=== PATIENT | male | born 1930 | race Caucasian/White ===

== ENCOUNTER 2016-07-14 10:31 | Inpatient (IN) | payer MEDICARE, OTHER ==
[~2016-07-14] VITALS: Ht 172.7 cm; Wt 91.1 kg
[2016-07-14] VITALS (8 sets, daily range): BP systolic 96–116; BP diastolic 52–66; PULSE 68–90; RESP 12–21; O2SAT 96–98
[~2016-07-14 10:31] MED LIST: ADV250INH INH; ALBU2.5V4 INHALATION; ALBU8.5H2 INH; ATOR20TA65 PO; DOCU250C2 PO; FLUT16SP NASAL; FRSM80T PO; INSU100I16 SUBQ; INSU100I18 SUBQ; ISOS60TA2 PO; LEVO750T9 PO; METF1000 PO; METO2.5T12 PO; NEPA3DRO BOTH_EYES; NITR0.4T SL; POLY17PO6 PO; POTA10TA38 PO; PRED1DRO BOTH_EYES; VERA240T97 PO; WARF5TAB9 PO; [UNRECOGNIZED DRUG - CODE] PO
--- NOTE | 2016-07-14 10:44 | ED.REPORT ---
HPI-Chest Pain 40 and Over Date of Service Jul 14, 2016 ED Provider: Michael Duncan MD 86 year old male with a history of SC, CABG, CAD, CHF, and DM presents to the ER accompanied by his complaining of four days of cough and shortness of breath. He endorses production of white sputum with cough. Associated symptoms include constant chest discomfort described as congestion, fever (99F), and nasal congestion. Patient denies nausea, and vomiting. recently recovered from a bout of pneumonia. Nursing Notes Stated Complaint: CHEST PAIN Chief Complaint: Chest Pain Nursing Notes Reviewed: Yes Allergies: Coded Allergies: No Known Allergies (Verified , 07/29/15) Scheduled Atorvastatin Calcium (Atorvastatin Calcium) 20 Mg Tablet 20 MG PO HS Calcium Citrate/Vitamin D3 (Citracal-Vit D 200 mg-250 Tab) 1 Each Tablet 1 EACH PO BID Fluticasone Propionate (Fluticasone Propionate Nasal) 16 Gm [place].susp 1 SPRAY NASAL BID Fluticasone/Salmeterol (Advair 250-50 Diskus) 60 Puff/Inh Disk 1 PUFF INH BID Furosemide (Furosemide) 80 Mg Tab 160 MG PO QAM Insulin NPL/Insulin Lispro (HumaLOG 75/25 U100 Insulin Kwikpen) 100 Unit/1 Ml Insuln.pen 24 UNITS SUBQ BID Isosorbide MN ER (Isosorbide MN ER) 60 Mg Tab.er.24h 60 MG PO QAM Levofloxacin (Levaquin) 750 Mg Tablet 750 MG PO Q2DAY Metformin (Glucophage) 1,000 Mg Tablet 1,000 MG PO BID Metolazone (Metolazone) 2.5 Mg Tablet 2.5 MG PO 1-2 times per week Nepafenac (N[place]anac) 3 Ml Drops.susp 1 GTT BOTH_EYES TID Potassium Chloride (Potassium Chloride) 10 Meq Tab.er.prt 20 MEQ PO TIDWM Potassium Chloride (Potassium Chloride) 10 Meq Tab.er.prt 10 MEQ PO HS TAKE WITH FOOD Prednisolone Acetate (Pred Forte) 1 Ml Drops.susp 1 GTT BOTH_EYES TID Verapamil ER (Verapamil ER) 240 Mg Tber 240 MG PO HS Warfarin Sodium (Jantoven) 5 Mg Tablet 2.5 MG PO DAILY don't take coumadin if INR is more than 3 Scheduled PRN Albuterol HFA (Proair HFA) 8.5 Gm Hfa.aer.ad 1 PUFF INH q4-6 hours PRN PRN For Shortness of Breath Albuterol Neb Soln (Albuterol Neb Soln) 2.5 Mg/3 Ml Vial.neb 2.5 MG INHALATION QID PRN PRN For Shortness of Breath Docusate Sodium (Docusate Sodium) 250 Mg Capsule 250 MG PO DAILY PRN PRN For Constipation Insulin Lispro (HumaLOG U100 Insulin Pen) 100 Unit/1 Ml Insuln.pen 0-6 UNITS SUBQ TIDWM PRN PRN sliding scale Nitroglycerin SL (Nitrostat) 0.4 Mg Tab.subl 0.4 MG SL Q5MIN PRN PRN For Chest Pain Polyethylene Glycol 3350 (Miralax) 17 Gm Powd.pack 17 GM PO DAILY PRN PRN For Constipation General Time Seen by MD: 10:40 Chief Complaint Shortness of breath Hx Obtained From: Patient, Spouse Arrived By: Walk-in Sudden in Onset?: No Onset Occurred: 4 days ago Symptom Duration: Since onset Associated with: Reports: Cough, productive, Fever, Denies: Nausea, Vomiting Context Related History: Reports: Congestive heart failure, Diabetes mellitus, Hypertension, Myocardial infarction Similar Sx Previous: No Past Medical History Past Medical History Notes: [employer] Principal: Dr. Norman Past Medical History Prior SC Reports: Asthma, COPD, Cancer, Congestive heart failure, Coronary artery disease , Diabetes mellitus, Hypertension Past Surgical History Pacemaker Cardiac stenting CABG prostatectomy Smoking History Former Smoker Social History Alcohol Use: 1-3 per week Drug Use: Denies drug use Ambulatory Status Independent Review of Systems Constitutional: Reports: Fever Respiratory: Reports: Prod cough, white, Shortness of breath, Denies: Hemoptysis Cardiovascular: Reports: Chest pain GI: Denies: Constipation, Diarrhea, Nausea, Vomiting Musculoskeletal: Denies: Back pain, Extremity pain, Neck pain Skin: Denies Diaphoresis Complete sys rev & neg: except as marked. Ears / Nose / Throat: Reports: Nasal congestion Physical Exam Initial Vital Signs Vital Signs (First) Date Time Temp Pulse Resp B/P Pulse Ox O2 Delivery O2 Flow Rate FiO2 07/14/16 10:32 37.1 68 20 105/66 96 Room Air Initial VS: Reviewed Head / Eyes: Atraumatic, Normocephalic Neck: Supple, Non-tender, Full range of motion Extremities: Vascular intact, Neuro intact, No swelling, No tenderness Skin: Warm, Dry, No cyanosis Neurologic: Alert, Oriented, Nonfocal General/Constitutional: Awake, Alert, Well developed, Well nourished Coarse breath sounds bilaterally. Cardiovascular: Heart rate NL, Regular rhythm, Heart sounds NL, No murmurs, Peripheral circulation NL, Pulses = bilaterally, No gross BP differential Abdomen: Soft, Non-tender, No guarding, No rebound, No distention Interpretation & Diagnostics Lab Results Interpretation Result Diagram: 07/14/16 1100 07/14/16 1100 Test 07/14/16 11:00 07/14/16 13:05 White Blood Count 7.6th/mm3 (3.8-10.1) Red Blood Count 4.68mil/mm3 (4.40-5.80) Hemoglobin 14.5g/dL (13.8-17.2) Hematocrit 44.0% (41.0-50.0) Mean Corpuscular Volume 94.0fL (81-100) Mean Corpuscular Hemoglobin 31.0pg (27.0-35.0) Mean Corpuscular Hemoglobin Concent 33.0% (32.0-37.0) Red Cell Distribution Width 14.3% (12.3-15.4) Platelet Count 153bil/L (150-400) Neutrophils (%) (Auto) 69.3% (40-74) Lymphocytes (%) (Auto) 10.2% (14-46) Monocytes (%) (Auto) 19.2% (4-12) Eosinophils (%) (Auto) 0.7% (0-5) Basophils (%) (Auto) 0.3% (0-3) Prothrombin Time 17.3sec (8.1-12.5) Prothromb Time International Ratio 1.60ratio Sodium Level 135mEq/L (134-144) Potassium Level 4.3mEq/L (3.5-5.2) Chloride Level 94mEq/L (97-108) Carbon Dioxide Level 23mmol/L (18-29) Blood Urea Nitrogen 44mg/dL (8-27) Creatinine 1.36mg/dL (0.76-1.27) Estimat Glomerular Filtration Rate 53mL/min (>59) Glucose Level 166mg/dL (60-99) Calcium Level 9.6mg/dL (8.5-10.1) Magnesium Level 2.4mg/dL (1.6-2.6) Total Bilirubin 0.6mg/dL (0.0-1.2) Aspartate Amino Transf (AST/SGOT) 22U/L (0-50) Alanine Aminotransferase (ALT/SGPT) 18U/L (0-44) Alkaline Phosphatase 88U/L (25-160) Total Protein 7.8g/dL (6.4-8.4) Albumin 4.1g/dL (3.4-5.0) Hold Moreira Top Tube Received (Received) Troponin T < 0.010ug/L (0.0-0.011) ECG Interpretation ECG Interpretation: Atrial fibrillation, rate 72 Q waves in v1-v3 No ST elevations Unchanged from prior Time: 10:52 Interpreted by: ED physician X-Ray Chest Interpretation Chest Xray Interpretation: IMPRESSION: Bibasilar airspace disease (right significantly greater than left) is suspicious for pneumonia. Atelectasis or aspiration may also have this appearance. Dictated by: Tanvir Gallo M.D. on 07/14/2016 at 10:52 Approved by: Tanvir Gallo M.D. on 07/14/2016 at 10:53 View: Portable, 1 view Interpretation / Wet Read by: Interpret - Radiologist Re-Eval/Medical Decision Med Decision/Clinical Course 86-year-old male history of CABG, diabetes, CAD, CHF presenting with shortness breath times several days. Cough productive white sputum. Chest x-ray concerning right lower lobe pneumonia. His oxygen is mid 90s on room air. Denied any chest pain. Troponins mild elevation. History of elevation in the past. Curb 65 score is 2 for age and kidney function. Mild acute kidney injury. Discussed with patient and he would like to be admitted. Admitted for pneumonia. Levaquin given. Aspirin given for troponin elevation will trend. No EKG changes. Source of Hx: Old records Time of Eval: 12:14 Re-Evaluation/Progress Note: Discussed lab and imaging results and need for admission, as well as the risks and benefits of admission vs admiission. Patient would like to be discharged home. Time of Eval: 12:43 Re-Evaluation/Progress Note: called primary care provider, Dr. Cabrera, regarding patient's case. She reports that Dr. Cabrera recommends admission. Patient now agrees to the plan for admission. All other questions addressed. Time of Eval: 13:22 Re-Evaluation/Progress Note: CODE STATUS: FULL CODE Consultation : Referral / Consult Name: Ankush Payan Consulted With: Hospitalist Call Returned at: 13:21 [employer]ix System Administrator: Agrees with eval, Agrees with plan, Accepts admit Counseled Regarding: Diagnosis, Lab results, Need for admission Discharge & Departure Primary Impression: Pneumonia Additional Impressions: Elevated troponin Acute kidney injury Disposition: ADMITTED TO HOSPITAL Discharge Condition All VS Reviewed: Yes Condition: Stable Referrals: Hina Cabrera MD (PCP) Dolores Attestation Portions of this note were transcribed by Camron Mulligan. I, Dr. Duncan, personally performed the history, physical exam and medical decision-making; I reviewed and confirmed the accuracy of the information in the transcribed note. Signed by: Dolores Julian, 07/14/2016 at 13:22 copies to: Hina Cabrera MD, Ben M MD Jul 14, 2016 10:43 CAMRON MULLIGAN Jul 14, 2016 10:56
[2016-07-14 11:20] LABS: BASOPHILS % (AUTO) 0.3 % (0-3); EOSINOPHILS % (AUTO) 0.7 % (0-5); MONOCYTES % (AUTO) 19.2 % (4-12); NEUTROPHILS % (AUTO) 69.3 % (40-74); Platelet Count 153 bil/L (150-400)
[2016-07-14 11:31] LABS: INR 1.6 ratio
[2016-07-14 11:38] LABS: TROPONIN T 0.013 ug/L (0.0-0.011)
[2016-07-14 11:49] LABS: Magnesium 2.4 mg/dL (1.6-2.6)
--- NOTE | 2016-07-14 11:54 | DRSVH ---
PROCEDURE: X-RAY CHEST ONE VIEW, PORTABLE ([id number]) INDICATIONS: CHEST PAIN TECHNIQUE: One view of the chest was acquired. COMPARISON: [facility], CR, XR CHEST 2VW, 08/21/2015, 16:51. [facility], C R, XR CHEST 2VW, 08/08/2015, 11:08. [facility], CR, XR CHEST 2VW, 07/29/2015, 16:30. [facility], CR, XR CHEST 2VW, 04/23/2015, 10:24. FINDINGS: Surgical changes and devices: Postoperative changes are present related to a prior median sternotomy. There is a dual lead cardiac pacer/defibrillator. Lungs and pleura: Developing right basilar airspace disease partially obscure some right diaphragm. There may be minimal left airspace disease, as well. No overt heart failure, large effusion, or pneu mothorax is evident. Mediastinum: Mediastinal contours appear normal. Heart size is normal. Bones and chest wall: No suspicious bony lesions. Overlying soft tissues appear unremarkable. IMPRESSION: Bibasilar airspace disease (right significantly greater than left) is suspicious for pneu monia. Atelectasis or aspiration may also have this appearance. Dictated by: Tanvir Gallo M.D. on 07/14/2016 at 10:52 Approved by: Tanvir Gallo M.D. on 07/14/2016 at 10:53
[2016-07-14] MEDS ORDERED: levoFLOXacin Inj 750 MG in IV Premix 1 EACH IV ONE (12:25)
[2016-07-14] MEDS ORDERED: Alum-Mag Hydrox-Simeth 30 mL Suspension PO PRN ×2 (13:20→15:20)
[2016-07-14] MEDS ORDERED: Ondansetron 2 mg/mL 2 mL Inj IVPUSH PRN ×2 (13:20→15:20)
--- NOTE | 2016-07-14 13:43 | NUR ---
Admit MPC from ED Rm [id number] Pt admitted via wc on RA, A&O, IV abx infusing and at bedside. Pt c/o pain with coughing, denies it otherwise. Pt oriented to room and facility, all questions answered. VSS, on RA. Admit to be complete still. No transitional orders in yet.
[2016-07-14] MEDS ORDERED: 0.9% Sodium Chloride 1,000 ML IV ONE (15:20)
[2016-07-14] MEDS ORDERED: levoFLOXacin Dose Per Pharmacist XX ONE (15:20)
[2016-07-14] MEDS ORDERED: Albuterol 2.5 mg/3 mL Inhalation Solution NEB PRN (15:25)
[2016-07-14] MEDS ORDERED: _Albuterol 2.5 mg/3 mL Neb NEB PRN (15:25)
[2016-07-14] MEDS ORDERED: Insulin LISPRO 300 Unit/3 mL Inj SUBQ PRN (15:25)
[2016-07-14] MEDS ORDERED: NEPAFENAC BOTH_EYES SCH (16:05)
[2016-07-14] MEDS ORDERED: [UNRECOGNIZED DRUG - OTHER] BOTH_EYES SCH (16:05)
[2016-07-14] MEDS: Heparin 5,000 Unit/mL Inj SUBQ SCH ×2 (16:20→21:34)
[2016-07-14] MEDS: Insulin Human REGular 300 Unit/3 mL Inj SUBQ SCH ×2 (17:00→21:34)
[2016-07-14] MEDS ORDERED: WARF5TAB7 PO ×2 (17:28)
[2016-07-14] MEDS ORDERED: SPIR25TA3 PO (17:28)
[2016-07-14] MEDS: Insulin ASPART 70/30 FlexPen 300 Unit/3 mL Inj SUBQ SCH (18:30)
[2016-07-14] MEDS: Polyethylene Glycol (PEG) 17 Gm Powder PO PRN (18:32)
--- NOTE | 2016-07-14 19:51 | PCM.HPMED ---
Subjective Date of Service Jul 14, 2016 Primary Provider: Admitting Physician: Ankush Payan Primary Care Physician: Hina Cabrera MD Attending Physician: Ankush Payan Chief Complaint: cough, shortness of breath History of Present Illness: 86 year old male with a history of CAD, CABG, and DM presents to the ER accompanied by his complaining of four days of cough, subjective fever this morning, and shortness of breath. He endorses production of white sputum with cough. He also reports chest discomfort with cough only and has also been having some nasal congestion. His reports that she recently recovered from a bout of pneumonia. Patient otherwise denies any nausea, vomiting, headache, constant chest pain, abdominal pain, diarrhea, or dysuria. In addition patient dose complain of bilateral sore throat. In the ED he was prescribed Levofloxacin and recommended to followup with his primary care provider but his PCP instructed the patient to get admitted for further treatment. Allergies Coded Allergies: No Known Allergies (Verified , 07/29/15) Home Medications Albuterol HFA 8.5 Gm Hfa.Aer.Ad 1 Puff INH q4-6 hours PRN Albuterol Neb Soln 2.5 Mg/3 Ml Vial.Neb 2.5 Mg INHALATION QID PRN Warfarin Sodium 5 Mg Tablet 2.5 Mg PO ,,,, Warfarin Sodium 5 Mg Tablet 5 Mg PO Wednesday and Atorvastatin Calcium 20 Mg Tablet 20 Mg PO HS Isosorbide MN ER 60 Mg PO QAM Nitroglycerin SL 0.4 Mg SL Q5MIN PRN Spironolactone 25 Mg PO DAILY Verapamil ER 240 Mg PO HS Calcium Citrate/Vitamin D3 1 Each PO BID Furosemide 160 Mg PO QAM Metolazone 2.5 Mg PO 1-2 times per week PRN Potassium Chloride 10 Meq PO QID with meals/HS Fluticasone/Salmeterol (Advair 250-50 Diskus) 1 Puff INH BID Fluticasone Propionate (Fluticasone Propionate Nasal) 1 [place] NASAL BID Docusate Sodium 250 Mg PO DAILY PRN Polyethylene Glycol 17 Gm PO DAILY Insulin NPL/Insulin Lispro 24 Units SUBQ BID Metformin 1,000 Mg PO BID Exam Vital Signs & I/O Vital Sign- Last 8 Hours Date Time Temp Pulse Resp B/P Pulse Ox O2 Delivery O2 Flow Rate FiO2 07/14/16 18:13 36.9 80 20 96/59 96 Room Air 07/14/16 16:36 75 07/14/16 13:51 36.7 90 20 108/63 97 Room Air 07/14/16 13:21 83 18 111/52 98 Room Air 07/14/16 12:14 81 21 116/57 98 Nasal Cannula Lab & Micro Results Laboratory Tests Test 07/14/16 11:00 07/14/16 13:05 White Blood Count 7.6th/mm3 (3.8-10.1) Red Blood Count 4.68mil/mm3 (4.40-5.80) Hemoglobin 14.5g/dL (13.8-17.2) Hematocrit 44.0% (41.0-50.0) Mean Corpuscular Volume 94.0fL (81-100) Mean Corpuscular Hemoglobin 31.0pg (27.0-35.0) Mean Corpuscular Hemoglobin Concent 33.0% (32.0-37.0) Red Cell Distribution Width 14.3% (12.3-15.4) Platelet Count 153bil/L (150-400) Neutrophils (%) (Auto) 69.3% (40-74) Lymphocytes (%) (Auto) 10.2% (14-46) Monocytes (%) (Auto) 19.2% (4-12) Eosinophils (%) (Auto) 0.7% (0-5) Basophils (%) (Auto) 0.3% (0-3) Prothrombin Time 17.3sec (8.1-12.5) Prothromb Time International Ratio 1.60ratio Sodium Level 135mEq/L (134-144) Potassium Level 4.3mEq/L (3.5-5.2) Chloride Level 94mEq/L (97-108) Carbon Dioxide Level 23mmol/L (18-29) Blood Urea Nitrogen 44mg/dL (8-27) Creatinine 1.36mg/dL (0.76-1.27) Estimat Glomerular Filtration Rate 53mL/min (>59) Glucose Level 166mg/dL (60-99) Calcium Level 9.6mg/dL (8.5-10.1) Magnesium Level 2.4mg/dL (1.6-2.6) Total Bilirubin 0.6mg/dL (0.0-1.2) Aspartate Amino Transf (AST/SGOT) 22U/L (0-50) Alanine Aminotransferase (ALT/SGPT) 18U/L (0-44) Alkaline Phosphatase 88U/L (25-160) Troponin T 0.013ug/L (0.0-0.011) < 0.010ug/L (0.0-0.011) Total Protein 7.8g/dL (6.4-8.4) Albumin 4.1g/dL (3.4-5.0) Hold Moreira Top Tube Received (Received) Procalcitonin 0.19ng/mL (0.00-0.08) Microbiology 07/14/16 Blood Culture, Received Pending 07/14/16 Adenovirus DNA (PCR), Received Pending 07/14/16 Coronavirus 229E PCR, Received Pending 07/14/16 Coronavirus HKU1 PCR, Received Pending 07/14/16 Coronavirus NL63 PCR, Received Pending 07/14/16 Coronavirus OC43 PCR, Received Pending 07/14/16 Influenza Type A (PCR), Received Pending 07/14/16 Influenza Type B (PCR), Received Pending 07/14/16 Human Metapneumovirus (PCR) (IAN), Received Pending 07/14/16 Rhinovirus (PCR)(IAN), Received Pending 07/14/16 Parainfluenza Virus Type 1 (PCR), Received Pending 07/14/16 Parainfluenza Virus Type 2 (PCR), Received Pending 07/14/16 Parainfluenza Virus Type 3 (PCR), Received Pending 07/14/16 Parainfluenza Virus Type 4 (NAAT), Received Pending 07/14/16 Respiratory Syncytial Virus (PCR)NV, Received Pending 07/14/16 Chlamydia pneumoniae (PCR), Received Pending 07/14/16 Mycoplasma pneumoniae DNA Detection, Received Pending Result Diagram: 07/14/16 1100 07/14/16 1100 Review of Systems: Constitutional: Negative, except as otherwise mentioned in the history above. Ophthalmologic: Negative, except as otherwise mentioned in the history above. Cardiovascular: Negative, except as otherwise mentioned in the history above. Respiratory: Negative, except as otherwise mentioned in the history above. Gastrointestinal: Negative, except as otherwise mentioned in the history above. Genitourinary: Negative, except as otherwise mentioned in the history above. Musculoskeletal: Negative, except as otherwise mentioned in the history above. Neurological: Negative, except as otherwise mentioned in the history above. Psychiatric: Negative, except as otherwise mentioned in the history above. Hematologic/Lymphatic: Negative, except as otherwise mentioned in the history above. Allergic/Immunologic: Negative, except as otherwise mentioned in the history above. PMH Coronary artery disease Heart failure, systolic dysfunction Diabetes mellitus type II Atrial fibrillation COPD Asthma Prostate cancer post resection Surgical History Cardiac stenting CABG Prostatectomy Pacemaker Family History denies any family history of cancers Social History Hx Alcohol Use: Yes (1 beer/ week) Hx Substance Use: No Hx Tobacco Use: No Smoking Status: Former Smoker (quit in 1967) Exam Vital Signs Vital Sign - Last Date Time Temp Pulse Resp B/P Pulse Ox O2 Delivery O2 Flow Rate FiO2 07/14/16 18:13 36.9 80 20 96/59 96 Room Air General: Alert, Oriented X3, Cooperative, No Acute Distress Head: Normal Eyes: PERRLA, EOMI, Scleral Anicteric Nose: Mucous Membr Moist/[place] Mouth: Mucous Membr Moist/[place] Neck: Supple Chest & Lungs: Chest Wall Normal, Coarse breath sounds (bilateral) Cardiovascular: Regular Rate/Rhythm Pulses: NL carotid, radial, femoral, DP, PT Abdomen: Non-tender, Non-distended, Normoactive bowel tones, Soft Extremities: No cyanosis/clubbing/edma bilat, Other Skin: Other (chronic venous insufficiency chagnes to LE bilat) Neurological: Grossly Neurologically Intact, Cranial Nerves 2-12 Intact, Normal Speech Lymphatic: Other Lymph Nodes (no signficant lymphadenopathy) Additional Information: Psych: Pleasant and appropriate Lab and Diagnostics Result Diagram: 07/14/16 1100 07/14/16 1100 X-Rays, CTs and MRIs Date of Service: 07/14/16 1041 PROCEDURE: X-RAY CHEST ONE VIEW, PORTABLE ([id number]) IMPRESSION: Bibasilar airspace disease (right significantly greater than left) is suspicious for pneumonia. Atelectasis or aspiration may also have this appearance. Dictated by: Tanvir Gallo M.D. on 07/14/2016 at 10:52 Approved by: Tanvir Gallo M.D. on 07/14/2016 at 10:53 12-lead ECG NSR at about 70 bpm Assessment & Plan 86 year old male with a history of CAD, CABG, and DM presents to the ER accompanied by his complaining of four days of cough, subjective fever this morning, and shortness of breath. He endorses production of white sputum with cough. He also reports chest discomfort with cough only and has also been having some nasal congestion. His reports that she recently recovered from a bout of pneumonia. Patient otherwise denies any nausea, vomiting, headache, constant chest pain, abdominal pain, diarrhea, or dysuria. In addition patient dose complain of bilateral sore throat. # Acute community acquired pneumonia. present on admission. - check rapid strep test and strep Ag given report of sore throat - check respiratory PCR given recent history or RSV for similar symptoms - check procalcitonin - sputum culture - blood culture - continue Levofloxacin started in ED (pharmacy to adjust dose) # Acute kidney injury, present on admission. - gentle IV fluid (patient clinically appears dehydrated) - followup repeat labs in am - check UA # Possible acute COPD exacerbation. Present on admission. - I don't appreciate any significant wheezing on exam today and so will not start any steroids - continue with home inhaler and Nebs - continue with supportive care # History of atrial fibrillation. Currently in sinus rhythm - followup on Tele - continue with Warfarin (pharmacy to manage dose) - followup daily INR (currently sub-therapeutic) - heparin SC tid until INR therapeutic # Coronary artery disease. presume stable - mild bump in Trop on admission but normalized on repeat lab - continue with home meds # History of systolic dysfunction and heart failure. currently stable - gentle IV fluid overnight - resume home diuretics in the morning if renal function back to normal # Diabetes mellitus type II - continue with home dose Insulin - hold oral diabetic meds - cover with ISS - check HgA1C # History of prostate cancer post resection in remission after prostatectomy Expected length of hospital stay is greater than 2 midnights and likely 2-3 days GI Prophylaxis: Not indicated VTE Prophylaxis: Sub-Q Heparin (Unfractionated) VTE Mechanical Devices: Venous Foot Pump Resuscitation Status: CPR: Attempt Resuscitation (discussed and verified with the patietn) Time spent 65 min Ankush Payan Jul 14, 2016 19:51
[2016-07-14] MEDS ORDERED: PrednisoLONE 1% 1 mL Ophthalmic Suspension BOTH_EYES SCH (20:30)
[2016-07-14] MEDS: Albuterol 2.5 mg/3 mL Inhalation Solution NEB PRN (20:52)
[2016-07-14] MEDS: Verapamil SR 240 mg ER12 Tablet PO SCH (21:34)
[2016-07-14] MEDS: Fluticasone 0.05% 15 Spray/2 Gm 16 Gm Nasal Spray NASAL SCH (21:36)
[2016-07-14] MEDS: Fluticasone-Salmererol 250-50 Inhaler INHALATION SCH (21:36)
--- NOTE | 2016-07-14 22:21 | PCM.CONPHA ---
Subjective Date of Service: Jul 14, 2016 Requesting Provider: Ankush Payan cough, shortness of breath Reason for Pharmacy Consult: Anticoagulation Management Objective Vital Signs Date Time Temp Pulse Resp B/P Pulse Ox O2 Delivery O2 Flow Rate FiO2 07/14/16 21:37 36.7 81 12 98/60 98 Room Air 07/14/16 20:52 86 18 96 Room Air 07/14/16 18:13 36.9 80 20 96/59 96 Room Air 07/14/16 16:36 75 07/14/16 13:51 36.7 90 20 108/63 97 Room Air 07/14/16 13:21 83 18 111/52 98 Room Air 07/14/16 12:14 81 21 116/57 98 Nasal Cannula 07/14/16 10:32 37.1 68 20 105/66 96 Room Air Weight (Kilograms): 91.100 Height (Feet): 5 Height (Inches): 8.00 Test 07/14/16 11:00 07/14/16 13:05 White Blood Count 7.6th/mm3 (3.8-10.1) Red Blood Count 4.68mil/mm3 (4.40-5.80) Hemoglobin 14.5g/dL (13.8-17.2) Hematocrit 44.0% (41.0-50.0) Mean Corpuscular Volume 94.0fL (81-100) Mean Corpuscular Hemoglobin 31.0pg (27.0-35.0) Mean Corpuscular Hemoglobin Concent 33.0% (32.0-37.0) Red Cell Distribution Width 14.3% (12.3-15.4) Platelet Count 153bil/L (150-400) Neutrophils (%) (Auto) 69.3% (40-74) Lymphocytes (%) (Auto) 10.2% (14-46) Monocytes (%) (Auto) 19.2% (4-12) Eosinophils (%) (Auto) 0.7% (0-5) Basophils (%) (Auto) 0.3% (0-3) Prothrombin Time 17.3sec (8.1-12.5) Prothromb Time International Ratio 1.60ratio Sodium Level 135mEq/L (134-144) Potassium Level 4.3mEq/L (3.5-5.2) Chloride Level 94mEq/L (97-108) Carbon Dioxide Level 23mmol/L (18-29) Blood Urea Nitrogen 44mg/dL (8-27) Creatinine 1.36mg/dL (0.76-1.27) Estimat Glomerular Filtration Rate 53mL/min (>59) Glucose Level 166mg/dL (60-99) Calcium Level 9.6mg/dL (8.5-10.1) Magnesium Level 2.4mg/dL (1.6-2.6) Total Bilirubin 0.6mg/dL (0.0-1.2) Aspartate Amino Transf (AST/SGOT) 22U/L (0-50) Alanine Aminotransferase (ALT/SGPT) 18U/L (0-44) Alkaline Phosphatase 88U/L (25-160) Total Protein 7.8g/dL (6.4-8.4) Albumin 4.1g/dL (3.4-5.0) Hold Moreira Top Tube Received (Received) Troponin T < 0.010ug/L (0.0-0.011) Procalcitonin 0.19ng/mL (0.00-0.08) Assessment/Plan Assessment/Plan Warfarin per Rx Indication: A-Fib INR goal : 2-3; Today is 1.6 Will give home dose of 2.5mg today Daily INR ordered; Heaprin SQ to be D/C'ed when INR therapeutic Carmelo Harper PharmD Jul 14, 2016 22:21
--- NOTE | 2016-07-14 22:36 | NUR ---
[employer] called to advise that Resp Panel returned + for parainfluenza 3. Pt already on droplet precautions.
[2016-07-15] VITALS (10 sets, daily range): BP systolic 99–127; BP diastolic 60–74; PULSE 57–72; RESP 18–22; O2SAT 95–99
[2016-07-15 06:29] LABS: Magnesium 2.4 mg/dL (1.6-2.6)
[2016-07-15 06:31] LABS: BASOPHILS % (AUTO) 0.4 % (0-3); MONOCYTES % (AUTO) 20.4 % (4-12); Mean Corpuscular Hemoglobin 30.9 pg (27.0-35.0); Mean Corpuscular Volume 93.6 fL (81-100); NEUTROPHILS % (AUTO) 58.2 % (40-74); Platelet Count 150 bil/L (150-400)
[2016-07-15] MEDS ORDERED: 0.9% Sodium Chloride 1,000 ML IV ONE (07:40)
[2016-07-15 08:10] LABS: INR 1.89 ratio
[2016-07-15] MEDS: Fluticasone-Salmererol 250-50 Inhaler INHALATION SCH ×2 (08:44→20:37)
[2016-07-15] MEDS: Isosorbide Mononitrate 60 mg ER24 Tablet PO SCH (08:44)
[2016-07-15] MEDS: Fluticasone 0.05% 15 Spray/2 Gm 16 Gm Nasal Spray NASAL SCH ×2 (08:45→20:37)
[2016-07-15] MEDS: Insulin ASPART 70/30 FlexPen 300 Unit/3 mL Inj SUBQ SCH ×2 (08:46→17:00)
[2016-07-15] MEDS: Heparin 5,000 Unit/mL Inj SUBQ SCH ×3 (08:46→23:10)
[2016-07-15] MEDS: Insulin Human REGular 300 Unit/3 mL Inj SUBQ SCH ×4 (08:47→20:37)
--- NOTE | 2016-07-15 11:26 | PCM.PHAPRO ---
Progress cough, shortness of breath WARFARIN DOSING PER PHARMACY [facility] DFF Date -Jul 15-Jun INR 1.6 1.89 INR change 0.29 Warf Dose 2.5 2.5 A/P -Subtherapeutic INR but uptrending. -Will continue with warfarin 2.5 mg this evening which aligns with home regimen. -Will stop heparin ppx once INR is therapeutic. -Pharmacy will continue to monitor Rodger Lee, Rodger Urbina Jul 15, 2016 11:26
[2016-07-15] MEDS: Albuterol 2.5 mg/3 mL Inhalation Solution NEB PRN (12:29)
--- NOTE | 2016-07-15 14:23 | NUR ---
Social Work Note - Initial Assessment: D/A: See Initial Assessment. The Pt is an 86 y/o male that was admitted for elevated trop, pneumonia. Readmission Risk Score 3. The Pt's PCP is MD Hina Cabrera and his primary insurance is Medicare with a Nex[employer] supplement, no LTC or VA benefits reported. EMR reviewed. The Pt lives independently in [place] with his . The Pt has [employer] at home, paperwork requested. The Pt continues to drive and has nebulizer at O2 at home for use at night. The Pt has no personal history of HH/SNF services but the family is familiar with [facility] due to the 's stay previously. The family has housekeeping services every other week, no other community resources reported. The Pt denies any other needs at this time, SW to follow if needs arise. P: The Pt is not medically stable for discharge at this time, Pt likely to discharge home via family POV when medically ready. The Pt denies any other needs at this time, SW to follow if needs arise. MORGAN Espinosa [employer] Addendum: 07/15/16 at 1429 by LASHAY DE LA ROSA SS Amended: Links added. Addendum: 04/19/17 at 1659 by COLLEEN PHIPPS GLENN has reviewed note. Colleen López,FELT HANGER
--- NOTE | 2016-07-15 15:07 | PCM.PNMED ---
Subjective Date of Service Jul 15, 2016 Subjective continued cough and generalized malaise. denies any other new issues/complaints Exam Vital Signs Vital Sign - Last Date Time Temp Pulse Resp B/P Pulse Ox O2 Delivery O2 Flow Rate FiO2 07/15/16 14:15 36.3 60 22 99/60 98 Room Air Intake and Output 07/14/16 07/14/16 07/15/16 Cumulative From/Thru 15:00 23:00 07:00 07/14/16 10:32 - 07/15/16 06:03 Intake Total 160 ml 610 ml 250 ml 1020 ml Output Total 400 ml 1300 ml 1700 ml Balance 160 ml 210 ml -1050 ml -680 ml Intake Oral 450 ml 250 ml 700 ml IV Total 160 ml 160 ml 320 ml Output Urine Total 400 ml 1300 ml 1700 ml # Bowel Movements 0 0 0 Exam General: Alert, Cooperative, No Acute Distress Head: Normal Eyes: PERRLA, EOMI, Scleral Anicteric Nose: Mucous Membr Moist/[place] Mouth: Mucous Membr Moist/[place] Neck: Supple Chest & Lungs: Chest Wall Normal, Coarse breath sounds with mild expiratory wheeze (bilateral) Cardiovascular: Regular Rate/Rhythm Abdomen: Non-tender, Non-distended, Normoactive bowel tones, Soft Extremities: No cyanosis/clubbing/edema bilat, Other Skin: Other (chronic venous insufficiency changes to LE bilat) Neurological: Grossly Neurologically Intact, Normal Speech Psych: Pleasant and appropriate IVs and Medications Medications Reviewed: Medications were reviewed in detail Lab and Diagnostics Result Diagram: 07/15/16 0515 07/15/16 0515 X-Rays, CTs and MRIs Date of Service: 07/14/16 1041 PROCEDURE: X-RAY CHEST ONE VIEW, PORTABLE ([id number]) IMPRESSION: Bibasilar airspace disease (right significantly greater than left) is suspicious for pneumonia. Atelectasis or aspiration may also have this appearance. Dictated by: Tanvir Gallo M.D. on 07/14/2016 at 10:52 Approved by: Tanvir Gallo M.D. on 07/14/2016 at 10:53 12-lead ECG NSR at about 70 bpm Assessment & Plan 86 year old male with a history of CAD, CABG, and DM presents to the ER accompanied by his complaining of four days of cough, subjective fever, and shortness of breath. # Acute community acquired pneumonia. present on admission. - respiratory PCR positive for Parainfluenza 3 virus - stop Levofloxacin # one out of two blood cultures also positive for GPC. present on admission - ? if contamination - followup final blood culture result - change antibiotics to IV Vanco (dose per pharmacy) until final culture result available # Acute kidney injury, present on admission. slowly improving with IV fluid - continue gentle IV fluid - followup repeat labs in am # Possible acute COPD exacerbation. Present on admission. - has only mild wheezing on exam today and so will not start any steroids - continue with home inhaler and Nebs - continue with supportive care # History of atrial fibrillation. Currently in sinus rhythm - followup on Tele - continue with Warfarin (pharmacy to manage dose) - followup daily INR (currently sub-therapeutic) - heparin SC tid until INR therapeutic # Coronary artery disease. presume stable - mild bump in Trop on admission but normalized on repeat lab - continue with home meds # History of systolic dysfunction and heart failure. currently stable - gentle IV fluid overnight - resume home diuretics in the morning if renal function back to normal # Diabetes mellitus type II - continue with home dose Insulin - hold oral diabetic meds - cover with ISS - HgA1C 6.4 # History of prostate cancer post resection in remission after prostatectomy Dispo: 1-2 days pending final blood culture result and improved respiratory status GI Prophylaxis: Not indicated VTE Prophylaxis: Sub-Q Heparin (Unfractionated) VTE Mechanical Devices: Venous Foot Pump Resuscitation Status: CPR: Attempt Resuscitation (discussed and verified with the patietn) Ankush Payan Jul 15, 2016 15:07
--- NOTE | 2016-07-15 18:11 | NUR ---
Positive blood culture Patient had blood culture pending. Micro called nurse and reported blood culture 04/01 came back positive for +cocci resembling strep. was notified.
[2016-07-15] MEDS: Verapamil SR 240 mg ER12 Tablet PO SCH (20:36)
[2016-07-16 02:42] VITALS: PULSE 56
--- NOTE | 2016-07-16 03:27 | NUR ---
Uneventful night Patient slept intermittently, woke a few times because of coughing. Saturations high 90's on room air. Declined nebulizer treatment. Patient reported that the coughing is from nasal discharge that drains down his throat while laying down. Denied pain except for arthritic pain in hands, declined medication and lotion. Remained alert and oriented, used call light for needs. Intentional rounding in place.
[2016-07-16 05:00] VITALS: BP 109/67; PULSE 61; RESP 18; O2SAT 97
[2016-07-16 05:46] VITALS: PULSE 61
[2016-07-16] MEDS: Polyethylene Glycol (PEG) 17 Gm Powder PO PRN (06:45)
[2016-07-16 06:58] LABS: INR 1.74 ratio
[2016-07-16 08:00] VITALS: PULSE 67
[2016-07-16] MEDS ORDERED: levoFLOXacin Inj 750 MG in IV Premix 1 EACH IV SCH (08:30)
[2016-07-16] MEDS: Insulin Human REGular 300 Unit/3 mL Inj SUBQ SCH ×4 (08:36→22:00)
[2016-07-16] MEDS: Heparin 5,000 Unit/mL Inj SUBQ SCH ×2 (09:17→16:33)
[2016-07-16 09:18] VITALS: BP 121/66; PULSE 61; RESP 18; O2SAT 99
[2016-07-16] MEDS: Fluticasone-Salmererol 250-50 Inhaler INHALATION SCH ×2 (09:18→20:29)
[2016-07-16] MEDS: Fluticasone 0.05% 15 Spray/2 Gm 16 Gm Nasal Spray NASAL SCH ×2 (09:18→20:29)
[2016-07-16] MEDS: Isosorbide Mononitrate 60 mg ER24 Tablet PO SCH (09:18)
[2016-07-16] MEDS: Insulin ASPART 70/30 FlexPen 300 Unit/3 mL Inj SUBQ SCH ×2 (09:18→17:03)
[2016-07-16] MEDS ORDERED: 0.9% Sodium Chloride 250 ML ONE (09:22)
[2016-07-16 11:56] LABS: BASOPHILS % (AUTO) 0.4 % (0-3); MONOCYTES % (AUTO) 15.4 % (4-12); Mean Corpuscular Volume 94.7 fL (81-100); NEUTROPHILS % (AUTO) 55.6 % (40-74); Platelet Count 145 bil/L (150-400)
--- NOTE | 2016-07-16 12:16 | PCM.PHAPRO ---
Progress cough, shortness of breath WARFARIN DOSING PER PHARMACY (day) 1 2 3 RPh DFF DFF Date Jul 15-Jul 16-Jun INR 1.6 1.89 1.74 INR change 0.29 -0.15 Warf Dose 2.5 2.5 5 A/P -Subtherapeutic INR with slight decrease in level this AM. -Will increase dose based on home regimen and dose warfarin 5mg this evening. -Pharmacy will continue to follow. Rodger Lee,PharmD Rodger Lee Jul 16, 2016 12:16
--- NOTE | 2016-07-16 15:46 | PCM.PNMED ---
Subjective Date of Service Jul 16, 2016 Subjective Patient is doing better. He is on room air, ambulating bed to bathroom without much shortness of breath. He is afebrile, eating and drinking well. Plan to discharge tomorrow. Exam Vital Signs Vital Sign - Last Date Time Temp Pulse Resp B/P Pulse Ox O2 Delivery O2 Flow Rate FiO2 07/16/16 09:18 36.3 61 18 121/66 99 Room Air Intake and Output 07/15/16 07/15/16 07/16/16 Cumulative From/Thru 14:59 22:59 06:59 07/14/16 10:32 - 07/16/16 06:04 Intake Total 2892 ml 50 ml 3962 ml Output Total 1050 ml 850 ml 3600 ml Balance 1842 ml -800 ml 362 ml Intake Oral 1272 ml 50 ml 2022 ml IV Total 1620 ml 1940 ml Output Urine Total 1050 ml 850 ml 3600 ml # Bowel Movements 0 0 Exam General: Alert, Cooperative, No Acute Distress Nose: Mucous Membr Moist/[place] Mouth: Mucous Membr Moist/[place] Chest & Lungs: Chest Wall Normal, Coarse breath sounds with mild expiratory wheeze right more than left Cardiovascular: Regular Rate/Rhythm Abdomen: Non-tender, Non-distended, Normoactive bowel tones, Soft Extremities: No cyanosis/clubbing/edema bilat, Other Lab and Diagnostics Result Diagram: 07/16/16 0630 07/16/16 0630 X-Rays, CTs and MRIs Date of Service: 07/14/16 1041 PROCEDURE: X-RAY CHEST ONE VIEW, PORTABLE ([id number]) IMPRESSION: Bibasilar airspace disease (right significantly greater than left) is suspicious for pneumonia. Atelectasis or aspiration may also have this appearance. Dictated by: Tanvir Gallo M.D. on 07/14/2016 at 10:52 Approved by: Tanvir Gallo M.D. on 07/14/2016 at 10:53 12-lead ECG NSR at about 70 bpm Assessment & Plan 86 year old male with a history of CAD, CABG, and DM presents to the ER accompanied by his complaining of four days of cough, subjective fever, and shortness of breath. # Acute community acquired pneumonia. present on admission. - respiratory PCR positive for Parainfluenza 3 virus - discontinue Levofloxacin - procalcitonin in the morning # one out of two blood cultures also positive for GPC. present on admission - ? if contamination - followup final blood culture result # Acute kidney injury, present on admission. slowly improving with IV fluid - continue gentle IV fluid - followup repeat labs in am -much improved today, continue to monitor # Possible acute COPD exacerbation. Present on admission. - has only mild wheezing on exam today and so will not start any steroids - continue with home inhaler and Nebs - continue with supportive care # History of atrial fibrillation. Currently in sinus rhythm - followup on Tele - continue with Warfarin (pharmacy to manage dose) - followup daily INR (currently sub-therapeutic) - heparin SC tid until INR therapeutic # Coronary artery disease. presume stable - mild bump in Trop on admission but normalized on repeat lab - continue with home meds # History of systolic dysfunction and heart failure. currently stable - gentle IV fluid overnight - resume home diuretics in the morning if renal function back to normal # Diabetes mellitus type II - continue with home dose Insulin - hold oral diabetic meds - cover with ISS - HgA1C 6.4 # History of prostate cancer post resection in remission after prostatectomy Dispo: Home tomorrow if clinically stable Pain Evaluation: Adequate Pain Control GI Prophylaxis: Not indicated VTE Prophylaxis: Sub-Q Heparin (Unfractionated) VTE Mechanical Devices: Venous Foot Pump Resuscitation Status: CPR: Attempt Resuscitation (discussed and verified with the patietn) Attending Statement The patient was seen and examined together with Dr. Morel on 07/16/2016 and I agree with the history, exam and plan as outlined in the note above. . Aviva Morel DO Jul 16, 2016 15:46 Salbador Freedman MD Jul 17, 2016 06:44
[2016-07-16] MEDS: Verapamil SR 240 mg ER12 Tablet PO SCH (20:29)
[2016-07-16 23:47] VITALS: BP 111/67; PULSE 64; RESP 18; O2SAT 97
[2016-07-17] MEDS: Heparin 5,000 Unit/mL Inj SUBQ SCH ×2 (00:21→07:53)
[2016-07-17 06:23] VITALS: BP 114/63; PULSE 66; RESP 18; O2SAT 97
[2016-07-17 07:08] LABS: Mean Corpuscular Hemoglobin 31.2 pg (27.0-35.0); Mean Corpuscular Volume 94.8 fL (81-100)
[2016-07-17 07:19] LABS: INR 1.79 ratio
[2016-07-17] MEDS: Insulin ASPART 70/30 FlexPen 300 Unit/3 mL Inj SUBQ SCH (07:54)
[2016-07-17] MEDS: Fluticasone 0.05% 15 Spray/2 Gm 16 Gm Nasal Spray NASAL SCH (07:54)
[2016-07-17] MEDS: Isosorbide Mononitrate 60 mg ER24 Tablet PO SCH (07:54)
[2016-07-17] MEDS: Fluticasone-Salmererol 250-50 Inhaler INHALATION SCH (07:54)
[2016-07-17] MEDS: Polyethylene Glycol (PEG) 17 Gm Powder PO PRN (08:02)
[2016-07-17] MEDS: Insulin Human REGular 300 Unit/3 mL Inj SUBQ SCH ×2 (08:03→11:51)
[2016-07-17 09:08] VITALS: PULSE 62; RESP 16; O2SAT 97
--- NOTE | 2016-07-17 10:00 | NUR ---
Oxygenation Pt ambulated with this RN around unit (400ft) with pulseox. Pts Sp02 decreased to 93% skilled nursing through walk momentarily but maintained 96-99% for the entirety of his walk. At end of the walk pt displayed mild NICHOLAS as evidence by RR 26 and audible wheezes that occurred throughout entire course of ambulation, but Sp02 was 99%.
--- NOTE | 2016-07-17 11:03 | PCM.PHAPRO ---
Progress Date of Service: Jul 17, 2016 cough, shortness of breath WARFARIN MANAGEMENT A/ WARFARIN FOR AFIB INR= 1.79 INR CONTINUING TO TREND UP WILL CONTINUE 5MG TODAY STARTED LINEZOLID 600MG PO BID 07/16 WHICH CAN INCREASE INR. LINEZOLID NEED BEING EVALUATED BY MD Date -Jul 15-Jul 16-Jul 17-Jun INR 1.6 1.89 1.74 1.79 INR change 0.29 -0.15 0.05 Warf Dose 2.5 2.5 5 5 P/ WILL GIVE WARFARIN 5MG PO X1 TONIGHT AND CHECK INR WITH AM LABS Jorge Deal [facility] Jul 17, 2016 11:03
[2016-07-17 12:30] VITALS: BP 123/67; PULSE 67; RESP 16; O2SAT 98
--- NOTE | 2016-07-17 13:48 | PCM.DIMED ---
Discharge Instructions Date of Service Jul 17, 2016 Dates of Hospitalization Jul 14, 2016 at 13:30 Medication Instructions zpak Diet No restrictions Activity No restrictions Call your provider Fever or Chills, Shortness of breath Patient Instructions follow up with PCP if feeling worse on Z-yadiel follow up with coumadin clinic wednesday Valerie Dillard MD Jul 17, 2016 13:48
--- NOTE | 2016-07-17 13:49 | NUR ---
Social Work: Discharge Data: Pt is on day 3 of hospitalization. EMR reviewed. D/C orders are in. PT recommending home no PT needs. No d/c planning needs at this time. [employer] will continue to follow if needs arise. Assessment: Pt who is independent at baseline. Plan: Pt will d/c home via POV today. No d/c planning needs at this time. W[employer] F[employer] ENGINEER will continue to follow if needs arise. MORGAN Meneses
[2016-07-17] MEDS ORDERED: ZIT250 PO (13:56)
--- NOTE | 2016-07-17 14:03 | PCM.DC.MED ---
Discharge Summary Date of Service Jul 17, 2016 Dates of Hospitalization Date of Hospital Admission Jul 14, 2016 at 13:30 Date of Discharge: Jul 17, 2016 Providers: Admitting Physician: Ankush Payan Primary Care Physician: Hina Cabrera MD Attending Physician: Ankush Payan Diagnosis at Time of Discharge Diagnosis at Time of Discharge bilateral pneumonia, neg culture, elevated procalcitonin parainfluenza 3 virus COPD exacerbation subtherapeutic INR, home w/ azithro and usual home coumadin dosing for PAfib Procedures XRay, CTs & MRIs Date of Service: 07/14/16 1041 PROCEDURE: X-RAY CHEST ONE VIEW, PORTABLE ([id number]) IMPRESSION: Bibasilar airspace disease (right significantly greater than left) is suspicious for pneumonia. Atelectasis or aspiration may also have this appearance. Dictated by: Tanvir Gallo M.D. on 07/14/2016 at 10:52 Approved by: Tanvir Gallo M.D. on 07/14/2016 at 10:53 ECG 12 Lead NSR at about 70 bpm Brief History 86 year old male with a history of CAD, CABG, and DM presents to the ER accompanied by his complaining of four days of cough, subjective fever this morning, and shortness of breath. He endorses production of white sputum with cough. He also reports chest discomfort with cough only and has also been having some nasal congestion. His reports that she recently recovered from a bout of pneumonia. Patient otherwise denies any nausea, vomiting, headache, constant chest pain, abdominal pain, diarrhea, or dysuria. In addition patient dose complain of bilateral sore throat. In the ED he was prescribed Levofloxacin and recommended to followup with his primary care provider but his PCP instructed the patient to get admitted for further treatment. Hospital Course 86 year old male with a history of CAD, CABG, and DM presents to the ER accompanied by his ( 2 week hx of pna) complaining of four days of cough, subjective fever, and shortness of breath. # Acute community acquired pneumonia. present on admission. - respiratory PCR positive for Parainfluenza 3 virus - discontinue Levofloxacin/ s/p linezolid - procalcitonin positive x 2 --home w/ azithromycin - aware of increasing INR, which is still subtherapeutic --ambulated hallways w/o desaturation, confident taking him home # one out of two blood cultures also positive for GPC. present on admission - contamination # Acute kidney injury, present on admission. resolved - s/p IV fluid # acute COPD exacerbation. Present on admission. - diffuse rhonchi/wheeze baseline per patient - continue with home inhaler and Nebs # History of atrial fibrillation. Currently in sinus rhythm - followup on Tele - continue with Warfarin (pharmacy to manage dose) - followup daily INR (currently sub-therapeutic) - f/u w/ coumadin clinic wednesday - heparin SC tid until INR therapeutic # Coronary artery disease. presume stable - mild bump in Trop on admission but normalized on repeat lab - continue with home meds # History of systolic dysfunction and heart failure. currently stable - gentle IV fluid - resumed home diuretics as renal function back to normal # Diabetes mellitus type II - continue with home dose Insulin - hold oral diabetic meds - cover with ISS - HgA1C 6.4 # History of prostate cancer post resection in remission after prostatectomy Exam Vital Signs (Last) Date Time Temp Pulse Resp B/P Pulse Ox O2 Delivery O2 Flow Rate FiO2 07/17/16 12:30 36.5 67 16 123/67 98 Room Air Exam on RA NAD A and ox3 pleasant hearing aides wheeze throughout baseline per patient soft + BS mild edema Test 07/14/16 11:00 07/14/16 13:05 07/15/16 05:15 07/16/16 06:30 Hemoglobin A1c 6.4% (4.8-5.6) Hold Moreira Top Tube Received (Received) Troponin T < 0.010ug/L (0.0-0.011) Magnesium Level 2.4mg/dL (1.6-2.6) Neutrophils (%) (Auto) 55.6% (40-74) Lymphocytes (%) (Auto) 22.2% (14-46) Monocytes (%) (Auto) 15.4% (4-12) Eosinophils (%) (Auto) 6.0% (0-5) Basophils (%) (Auto) 0.4% (0-3) Test 07/17/16 06:45 White Blood Count 8.8th/mm3 (3.8-10.1) Red Blood Count 4.23mil/mm3 (4.40-5.80) Hemoglobin 13.2g/dL (13.8-17.2) Hematocrit 40.1% (41.0-50.0) Mean Corpuscular Volume 94.8fL (81-100) Mean Corpuscular Hemoglobin 31.2pg (27.0-35.0) Mean Corpuscular Hemoglobin Concent 32.9% (32.0-37.0) Red Cell Distribution Width 14.1% (12.3-15.4) Platelet Count 157bil/L (150-400) Prothrombin Time 19.4sec (8.1-12.5) Prothromb Time International Ratio 1.79ratio Sodium Level 137mEq/L (134-144) Potassium Level 4.8mEq/L (3.5-5.2) Chloride Level 101mEq/L (97-108) Carbon Dioxide Level 20mmol/L (18-29) Blood Urea Nitrogen 28mg/dL (8-27) Creatinine 0.99mg/dL (0.76-1.27) Estimat Glomerular Filtration Rate 76mL/min (>59) Glucose Level 174mg/dL (60-99) Calcium Level 8.9mg/dL (8.5-10.1) Total Bilirubin 0.6mg/dL (0.0-1.2) Aspartate Amino Transf (AST/SGOT) 20U/L (0-50) Alanine Aminotransferase (ALT/SGPT) 18U/L (0-44) Alkaline Phosphatase 92U/L (25-160) Total Protein 6.5g/dL (6.4-8.4) Albumin 3.7g/dL (3.4-5.0) Procalcitonin 0.12ng/mL (0.00-0.08) Discharge Medications Discharge Medications Atorvastatin Calcium (Atorvastatin Calcium) 20 Mg Tablet 20 MG PO HS (Reported) Azithromycin (Zithromax) 250 Mg Tablet 250 MG PO DAILY Prescribed by: VALERIE DILLARD MD Calcium Citrate/Vitamin D3 (Citracal-Vit D 200 mg-250 Tab) 1 Each Tablet 1 EACH PO BID (Reported) Fluticasone Propionate (Fluticasone Propionate Nasal) 16 Gm [place].susp 1 SPRAY NASAL BID (Reported) Fluticasone/Salmeterol (Advair 250-50 Diskus) 60 Puff/Inh Disk 1 PUFF INH BID ( Reported) Furosemide (Furosemide) 80 Mg Tab 160 MG PO QAM (Reported) Insulin NPL/Insulin Lispro (HumaLOG 75/25 U100 Insulin Kwikpen) 100 Unit/1 Ml Insuln.pen 24 UNITS SUBQ BID (Reported) Isosorbide MN ER (Isosorbide MN ER) 60 Mg Tab.er.24h 60 MG PO QAM (Reported) Metformin (Glucophage) 1,000 Mg Tablet 1,000 MG PO BID (Reported) Polyethylene Glycol 3350 (Miralax) 17 Gm Powd.pack 17 GM PO DAILY (Reported) Potassium Chloride (Potassium Chloride) 10 Meq Tab.er.prt 10 MEQ PO QID with meals/HS (Reported) Spironolactone (Spironolactone) 25 Mg Tablet 25 MG PO DAILY (Reported) Verapamil ER (Verapamil ER) 240 Mg Tber 240 MG PO HS (Reported) Warfarin Sodium (Warfarin Sodium) 5 Mg Tablet 2.5 MG PO ,,,, (Reported) Warfarin Sodium (Warfarin Sodium) 5 Mg Tablet 5 MG PO Wednesday and ( Reported) As needed Albuterol HFA (Proair HFA) 8.5 Gm Hfa.aer.ad 1 PUFF INH q4-6 hours PRN PRN For Shortness of Breath (Reported) Albuterol Neb Soln (Albuterol Neb Soln) 2.5 Mg/3 Ml Vial.neb 2.5 MG INHALATION QID PRN PRN For Shortness of Breath (Reported) Docusate Sodium (Docusate Sodium) 250 Mg Capsule 250 MG PO DAILY PRN PRN For Constipation (Reported) Metolazone (Metolazone) 2.5 Mg Tablet 2.5 MG PO 1-2 times per week PRN PRN prn ( Reported) Nitroglycerin SL (Nitrostat) 0.4 Mg Tab.subl 0.4 MG SL Q5MIN PRN PRN For Chest Pain (Reported) Additional med instructions zpak Followup Plan Discharge Diet: No restrictions Discharge Activity: No restrictions Patient Instructions follow up with PCP if feeling worse on Z-yadiel follow up with coumadin clinic wednesday Time spent >30min Valerie Dillard MD Jul 17, 2016 14:03
--- NOTE | 2016-07-17 14:58 | NUR ---
Discharge Went over discharge instructions with patient and his both verbally acknowledged understanding. Removed patent intact IV. This RN brought pt via wheelchair to awaiting transportation. No s/s of distress at time discharge
== END 2016-07-17 14:35 | disposition home or self-care (01) | DRG 194 ==
LOC: SED 10:31 → MPC 13:30
PROVIDERS: ADMIT Internal Medicine; ATTEND Internal Medicine
DX: J10.00 Influenza due to other identified influenza virus with unspecified type of pneumonia (principal); N17.9 Acute kidney failure, unspecified; J44.1 Chronic obstructive pulmonary disease with (acute) exacerbation; I50.22 Chronic systolic (congestive) heart failure; Z95.1 Presence of aortocoronary bypass graft; I25.10 Atherosclerotic heart disease of native coronary artery without angina pectoris; E11.9 Type 2 diabetes mellitus without complications; J45.909 Unspecified asthma, uncomplicated; Z79.4 Long term (current) use of insulin; Z79.51 Long term (current) use of inhaled steroids; Z95.0 Presence of cardiac pacemaker; I25.2 Old myocardial infarction; Z87.891 Personal history of nicotine dependence; Z85.46 Personal history of malignant neoplasm of prostate

== ENCOUNTER 2016-10-04 16:50 | Inpatient (IN) | payer MEDICARE, OTHER ==
[~2016-10-04] VITALS: Ht 177.8 cm; Wt 87.8 kg
[~2016-10-04 16:50] MED LIST changes: -INSU100I18 SUBQ; -LEVO750T9 PO; -NEPA3DRO BOTH_EYES; -PRED1DRO BOTH_EYES; +SPIR25TA3 PO; +WARF5TAB7 PO; -WARF5TAB9 PO; +ZIT250 PO
[2016-10-04 16:53] VITALS: BP 107/63; PULSE 80; RESP 16; O2SAT 98
--- NOTE | 2016-10-04 17:08 | ED.REPORT ---
HPI-Dyspnea / Wheezing Date of Service Oct 04, 2016 ED Provider: Liliam Mabry MD 86 y/o male with a hx of GA, CABG, CAD, CHF, DM and hospitalization for pneumonia 4 months ago presents to the ER complaining of shortness of breath for a week. Associated sx include substernal chest pain, fatigue and cough with green sputum that seems to be improving. The pt does report cough with brownish- red sputum this morning. He denies fever and change in his chronic lower extremity edema. The pt states his current sx are not similar to his last GA. They are more like the sx he had when he was diagnosed with pneumonia.The pt has been using his inhaler but it is not relieving his symptoms. His states the increased use of Albuterol is causing shaking. Nursing Notes Stated Complaint: DIFFICULTY BREATHING Chief Complaint: Respiratory Distress Nursing Notes Reviewed: Yes Allergies: Coded Allergies: No Known Allergies (Verified , 07/29/15) Scheduled Albuterol Neb Soln (Albuterol Neb Soln) 2.5 Mg/3 Ml Vial.neb 2.5 MG INHALATION QID Atorvastatin Calcium (Atorvastatin Calcium) 20 Mg Tablet 20 MG PO HS Calcium Citrate/Vitamin D3 (Citracal-Vit D 200 mg-250 Tab) 1 Each Tablet 1 EACH PO BIDWM Fluticasone Propionate (Fluticasone Propionate Nasal) 16 Gm [place].susp 1 SPRAY NASAL BID Fluticasone/Salmeterol (Advair 250-50 Diskus) 60 Puff/Inh Disk 1 PUFF INH BID Furosemide (Furosemide) 80 Mg Tab 160 MG PO QAM Insulin Aspart (NovoLOG U100 Insulin Vial) 100 U/Ml U 2-6 UNIT SUBQ TIDWM PER SLIDING SCALE FOR BG > 200, PT AVERAGES ~ 4 UNITS. Insulin NPL/Insulin Lispro (HumaLOG 75/25 U100 Insulin Kwikpen) 100 Unit/1 Ml Insuln.pen 28 UNITS SUBQ BIDWM Isosorbide MN ER (Isosorbide MN ER) 60 Mg Tab.er.24h 60 MG PO QAM Metformin (Glucophage) 1,000 Mg Tablet 500 MG PO BIDWM Polyethylene Glycol 3350 (Miralax) 17 Gm Powd.pack 17 GM PO DAILY Potassium Chloride (Potassium Chloride) 10 Meq Tab.er.prt 10 MEQ PO QIDWM Spironolactone (Spironolactone) 25 Mg Tablet 25 MG PO QAM Verapamil ER (Verapamil ER) 240 Mg Tber 240 MG PO HS Warfarin Sodium (Warfarin Sodium) 5 Mg Tablet 2.5 MG PO [place],,W,,Sa Warfarin Sodium (Warfarin Sodium) 5 Mg Tablet 5 MG PO Wednesday and Scheduled PRN Albuterol HFA (Proair HFA) 8.5 Gm Hfa.aer.ad 1 PUFF INH q4-6 hours PRN PRN For Shortness of Breath Docusate Sodium (Docusate Sodium) 250 Mg Capsule 250 MG PO DAILY PRN PRN For Constipation Metolazone (Metolazone) 2.5 Mg Tablet 2.5 MG PO Q5D PRN PRN EDEMA Nitroglycerin SL (Nitrostat) 0.4 Mg Tab.subl 0.4 MG SL Q5MIN PRN PRN For Chest Pain General Time Seen by MD: 17:06 Chief Complaint Shortness of breath Hx Obtained From: Patient, Spouse Arrived By: Walk-in Sudden in Onset?: No Onset Occurred: 1 week ago Symptom Duration: Since onset Location: : Substernal Quality: Painful Radiation: : Does not radiate Severity: Current: Moderate Severity: Maximum: Moderate Recent Healthcare: Recent doctor visit Similar Sx Previous: Yes Past Medical History Past Medical History Notes: Claims Adjuster Crop: Dr. Norman Past Medical History Prior GA Reports: Asthma, COPD, Cancer, Congestive heart failure, Coronary artery disease , Diabetes mellitus, Hypertension Past Surgical History Pacemaker Cardiac stenting CABG prostatectomy Smoking History Former Smoker Social History Alcohol Use: 1-3 per week Drug Use: Denies drug use Ambulatory Status Independent Review of Systems Constitutional: Reports: Fatigue, Denies: Fever Respiratory: Reports: Prod cough, brown, Prod cough, green, Shortness of breath Cardiovascular: Reports: Chest pain (substernal), Denies: Edema Complete sys rev & neg: except as marked. Neurologic: Reports: Shaking Physical Exam Initial Vital Signs Vital Signs (First) Date Time Temp Pulse Resp B/P Pulse Ox O2 Delivery O2 Flow Rate FiO2 10/04/16 16:53 36.5 80 16 107/63 98 Room Air Initial VS: Reviewed, Vital signs normal Head / Eyes: Atraumatic, Normocephalic Extremities: Vascular intact, Neuro intact, No swelling, No tenderness Skin: Warm, Dry, No cyanosis Neurologic: Alert, Oriented, Nonfocal General/Constitutional: Awake, Alert, Cooperative Neck: Atraumatic, Supple, Full range of motion Respiratory / Chest: Atraumatic, Breath sounds = bilat, No rales, No rhonchi Wheezing / Retractions: Positive: Wheezing expiratory (to bilateral bases) Cardiovascular: Heart rate NL, Heart sounds NL, No murmurs Heart Rate / Rhythm: Positive: Irregular rhythm Back: Atraumatic, Full range of motion Interpretation & Diagnostics Lab Results Interpretation Result Diagram: 10/04/16 1715 10/04/16 1715 Test 10/04/16 17:15 White Blood Count 15.0th/mm3 (3.8-10.1) Red Blood Count 4.67mil/mm3 (4.40-5.80) Hemoglobin 14.2g/dL (13.8-17.2) Hematocrit 43.0% (41.0-50.0) Mean Corpuscular Volume 92.1fL (81-100) Mean Corpuscular Hemoglobin 30.4pg (27.0-35.0) Mean Corpuscular Hemoglobin Concent 33.0% (32.0-37.0) Red Cell Distribution Width 14.3% (12.3-15.4) Platelet Count 276bil/L (150-400) Neutrophils (%) (Auto) 80.9% (40-74) Lymphocytes (%) (Auto) 6.9% (14-46) Monocytes (%) (Auto) 10.9% (4-12) Eosinophils (%) (Auto) 0.9% (0-5) Basophils (%) (Auto) 0.1% (0-3) Prothrombin Time 18.8sec (8.1-12.5) Prothromb Time International Ratio 1.74ratio Sodium Level 130mEq/L (134-144) Potassium Level 4.5mEq/L (3.5-5.2) Chloride Level 87mEq/L (97-108) Carbon Dioxide Level 23mmol/L (18-29) Blood Urea Nitrogen 49mg/dL (8-27) Creatinine 1.61mg/dL (0.76-1.27) Estimat Glomerular Filtration Rate 43mL/min (>59) Glucose Level 181mg/dL (60-99) Calcium Level 10.1mg/dL (8.5-10.1) Magnesium Level 2.1mg/dL (1.6-2.6) Total Bilirubin 1.0mg/dL (0.0-1.2) Aspartate Amino Transf (AST/SGOT) 17U/L (0-50) Alanine Aminotransferase (ALT/SGPT) 14U/L (0-44) Alkaline Phosphatase 107U/L (25-160) Troponin T 0.014ug/L (0.0-0.011) Pro-B-Type Natriuretic Peptide 1458pg/mL (0-486) Total Protein 8.5g/dL (6.4-8.4) Albumin 3.7g/dL (3.4-5.0) Procalcitonin 0.24ng/mL (0.00-0.08) Hold Moreira Top Tube Received (Received) ECG Interpretation ECG Interpretation: A-fib. Rate 77. 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 Prolonged QT interval. Time: 17:09 Interpreted by: ED physician X-Ray Chest Interpretation Chest Xray Interpretation: IMPRESSION: 1. No acute cardiopulmonary disease. Dictated by: Jose Montelongo M.D. on 10/04/2016 at 17:39 Approved by: Jose Montelongo M.D. on 10/04/2016 at 17:40 View: Portable, 1 view Interpretation / Wet Read by: Interpret - Radiologist CT Chest Interpretation IMPRESSION: 1. Small region of consolidation in the right posterior costophrenic angle with patchy bibasilar opacities consistent with an infectious or inflammatory process. The findings are suggestive of aspiration and similar in distribution to the findings on the prior CT. 2. Small hiatal hernia. Dictated by: Jose Montelongo M.D. on 10/04/2016 at 18:25 Approved by: Jose Montelongo M.D. on 10/04/2016 at 18:31 Study type: Chest CT no contrast Interpretation / Wet Read by: Interpret - Radiologist Re-Eval/Medical Decision Med Decision/Clinical Course The patient presents with increasing respiratory difficulty and chest pain. He says his chest pain does not like his ischemic pain. He is found to have pneumonia versus another inflammatory process. Given his description of sputum and leukocytosis is likely pneumonia. Patient's troponin is indeterminate which could be related to strain. The patient's multiple comorbidities was admitted to the hospital. He had some hypotension which was asymptomatic and resolved with a fluid bolus. Consultation : Referral / Consult Name: ValentinesamariaJenniferisa Santos DO Consulted With: Hospitalist Call Returned at: 19:14 Cheese Pancake Roller: Will see patient, Agrees with eval, Agrees with plan, Accepts admit Discharge & Departure Impression: Primary Impression: Pneumonia Pneumonia type: due to unspecified organism Laterality: bilateral Lung location: unspecified part of lung Qualified Code: J18.9 - Pneumonia, unspecified organism Disposition: ADMITTED TO HOSPITAL Discharge Condition All VS Reviewed: Yes Referrals: Hina Cabrera MD (PCP) Scribe Attestation Portions of this note were transcribed by Lisa Morales. I, , personally performed the history, physical exam and medical decision- making;I reviewed and confirmed the accuracy of the information in the transcribed note. Signed by Dolores Escalante. 10/04/16 19:59 copies to: Hina Cabrera MD, Jena M MD Oct 04, 2016 17:08 Lisa Morales Oct 04, 2016 17:42
[2016-10-04] MEDS ORDERED: predniSONE 20 mg Tablet PO ONE (17:40)
[2016-10-04] MEDS ORDERED: Albuterol-Ipratropium 3 mL Inhalation Solution NEB ONE (17:40)
--- NOTE | 2016-10-04 17:41 | DRSVH ---
PROCEDURE: X-RAY CHEST ONE VIEW, PORTABLE ([id number]) INDICATIONS: CHEST PAIN TECHNIQUE: One view of the chest was acquired. COMPARISON: [facility], CR, XR CHEST 2VW, 07/29/2016, 14:45. FINDINGS: Surgical changes and devices: Left chest wall dual-lead pacemaker appears stable in position. Postsu rgical changes are redemonstrated in the mediastinum. Lungs and pleura: No pleural effusions or pneumothorax. Lungs are clear. Mediastinum: Mediastinal contours appear normal. Heart size is normal. Bones and chest wall: No suspicious bony lesions. Overlying soft tissues appear unremarkable. IMPRESSION: 1. No acute cardiopulmonary disease. Dictated by: Jose Montelongo M.D. on 10/04/2016 at 17:39 Approved by: Jose Montelongo M.D. on 10/04/2016 at 17:40
[2016-10-04 17:43] LABS: BASOPHILS % (AUTO) 0.1 % (0-3); EOSINOPHILS % (AUTO) 0.9 % (0-5); MONOCYTES % (AUTO) 10.9 % (4-12); Mean Corpuscular Hemoglobin 30.4 pg (27.0-35.0); Mean Corpuscular Volume 92.1 fL (81-100); NEUTROPHILS % (AUTO) 80.9 % (40-74); Platelet Count 276 bil/L (150-400)
[2016-10-04 18:15] LABS: TROPONIN T 0.014 ug/L (0.0-0.011)
[2016-10-04 18:16] LABS: Magnesium 2.1 mg/dL (1.6-2.6)
--- NOTE | 2016-10-04 18:33 | DRSVH ---
PROCEDURE: CT CHEST WITHOUT CONTRAST ([id number]) INDICATIONS: cough and dyspnea TECHNIQUE: Noncontrast 5 mm thick sections acquired from the pulmonary apices to the posterior costophrenic angl es. 7 mm thick coronal and sagittal MIP reformats were then acquired. For radiation dose reduction, the following was used: automated exposure control, adjustment of mA and/or kV according to patient size. COMPARISON: [facility], CT, CHEST W/O CONTRAST, 06/08/2014, 14:53. [facility] l, CR, XR CHEST 1VW (PORTABLE), 10/04/2016, 16:54. FINDINGS: Image quality: There is motion artifact limiting evaluation. Lungs and pleura: There is a small region of consolidation in the right posterior costophrenic angle. A few patchy indistinct and clustered nodular opacities are also demonstrated in the lower lobes, i nferior left lingula, inferior right middle lobe. The findings are compatible with an inflammatory o r infectious process and suggestive of aspiration. No pleural effusions or pneumothorax. Central an d peripheral airways are patent and normal in caliber. Mediastinum: Heart size is normal. No pericardial effusion. There are postsurgical changes consist ent with prior CABG. There is a left chest wall pacemaker with leads extending into the right atrium and right ventricle. No mediastinal adenopathy by size criteria. Thoracic aorta and central pulmona ry arteries are normal in size. Esophagus is normal in caliber. There is a small hiatal hernia. Bones and chest wall: No suspicious bony lesions. No vertebral body compression fractures. No axil kiel or supraclavicular adenopathy by size criteria. Abdomen: Visualized upper abdomen again demonstrates an exophytic cyst extending superiorly from the right kidney which is not visualized. IMPRESSION: 1. Small region of consolidation in the right posterior costophrenic angle with patchy bibasilar opa cities consistent with an infectious or inflammatory process. The findings are suggestive of aspirat ion and similar in distribution to the findings on the prior CT. 2. Small hiatal hernia. Dictated by: Jose Montelongo M.D. on 10/04/2016 at 18:25 Approved by: Jose Montelongo M.D. on 10/04/2016 at 18:31
[2016-10-04 18:34] LABS: INR 1.74 ratio
[2016-10-04] MEDS ORDERED: Clindamycin Inj 600 MG in IV Premix 1 EACH IV ONE (18:50)
[2016-10-04] MEDS ORDERED: Azithromycin Inj 500 MG in Dextrose 5% w/Vial Mate 250 ML IV ONE (18:50)
[2016-10-04] MEDS ORDERED: cefTRIAXone Inj 2,000 MG in Dextrose 5% Minibag Plus 50 ML IV ONE (18:50)
[2016-10-04 19:20] VITALS: BP 95/50; PULSE 60; RESP 21; O2SAT 94
[2016-10-04] MEDS ORDERED: 0.9% Sodium Chloride 250 ML IV ONE (19:35)
[2016-10-04] MEDS ORDERED: Albuterol 2.5 mg/3 mL Inhalation Solution NEB PRN (20:10)
[2016-10-04] MEDS ORDERED: Polyethylene Glycol (PEG) 17 Gm Powder PO PRN (20:10)
[2016-10-04] MEDS ORDERED: Alum-Mag Hydrox-Simeth 30 mL Suspension PO PRN (20:10)
[2016-10-04] MEDS ORDERED: Albuterol 2.5 mg/3 mL Inhalation Solution NEB SCH (20:30)
[2016-10-04 20:38] VITALS: BP 107/84; PULSE 60; RESP 19; O2SAT 95
[2016-10-04] MEDS ORDERED: INSU100C8 SUBQ (20:44)
[2016-10-04 20:57] VITALS: BP 109/60; PULSE 60; RESP 20; O2SAT 93
[2016-10-04 21:11] VITALS: PULSE 59
[2016-10-04 21:30] VITALS: PULSE 62; RESP 18
[2016-10-04] MEDS: Albuterol-Ipratropium 3 mL Inhalation Solution NEB SCH (21:30)
--- NOTE | 2016-10-04 22:06 | PCM.HPMED ---
Subjective Date of Service Oct 04, 2016 Primary Provider: Admitting Physician: Primary Care Physician: Hina Cabrera MD Attending Physician: Admit Status: From the Emergency Department, Full Admit, Remote Telemetry Chief Complaint: Shortness of breath History of Present Illness: Eric Medeiros is a 86-year-old man with past medical history significant for coronary artery disease status post CABG and stenting, CHF, atrial fibrillation , and insulin-dependent diabetes who presents with increased shortness of breath. Patient was recently admitted for pneumonia in June. He states that since his discharge he has continued to have some shortness of breath and cough. Over the last 5 days his cough has worsened and become productive of white sputum. He also notes increased shortness of breath limiting his activity. He does not use oxygen at home. He has been using his nebulizer more frequently which mildly improved symptoms. He denies any increased swelling in his lower extremities and notes that he carefully watches his weight and takes his diuretics accordingly per instructions from PCP and shredder tender, Dr. Thompson. He states his weight has been stable at 190 pounds. Patient notes that he does frequently choke while he is eating or drinking. This has never been worked up with a swallow study or EGD. He denies any hematochezia, weight loss, or voice changes. Patient denies fever, chills, night sweats, weight loss, nausea, vomiting, dysuria, or diarrhea. In the ED patient mentioned that he was experiencing some chest pain. Further discussion revealed that this pain was pleuritic in nature worsening when he coughed and with direct palpation to the sternum and epigastric area. A troponin level was drawn and was intermediate. Of note he does have a significant cardiac history. Including coronary artery disease status post single-vessel coronary bypass graft surgery in 1993 that developed high-grade stenosis subsequently requiring stenting in 2008. Most recent echo on 07/30/15 was completed while patient was in atrial fibrillation and showed an ejection fraction of 45-50% with mild global hypokinesis of the left ventricle but no significant change from prior study in 2014. On presentation to the ED patient's vitals were temperature 36.5, pulse 80, respiratory rate 16 saturating 98% on room air, blood pressure 107/63. Initial labs revealed a leukocytosis of 15.0 with a neutrophil predominance, BUN 49, creatinine 1.61 (baseline creatinine appears to be around 1.5), troponin 0.014. In the ED the patient was given ceftriaxone and azithromycin along with a single dose of prednisone 40 mg. Review of Systems: Comprehensive review of systems was conducted with the patient and found to be negative except as noted above in HPI. Allergies Coded Allergies: No Known Allergies (Verified , 07/29/15) Home Medications Albuterol HFA 8.5 Gm Hfa.Aer.Ad 1 Puff INH q4-6 hours PRN Albuterol Neb Soln 2.5 Mg/3 Ml Vial.Neb 2.5 Mg INHALATION QID PRN Warfarin Sodium 5 Mg Tablet 2.5 Mg PO ,,,,Sa Warfarin Sodium 5 Mg Tablet 5 Mg PO Wednesday and Atorvastatin Calcium 20 Mg Tablet 20 Mg PO HS Isosorbide MN ER 60 Mg PO QAM Nitroglycerin SL 0.4 Mg SL Q5MIN PRN Spironolactone 25 Mg PO DAILY Verapamil ER 240 Mg PO HS Calcium Citrate/Vitamin D3 1 Each PO BID Furosemide 160 Mg PO QAM Metolazone 2.5 Mg PO 1-2 times per week PRN Potassium Chloride 10 Meq PO QID with meals/HS Fluticasone/Salmeterol (Advair 250-50 Diskus) 1 Puff INH BID Fluticasone Propionate (Fluticasone Propionate Nasal) 1 [place]man NASAL BID Docusate Sodium 250 Mg PO DAILY PRN Polyethylene Glycol 17 Gm PO DAILY Insulin NPL/Insulin Lispro 24 Units SUBQ BID Metformin 500 Mg PO BID PMH Coronary artery disease Heart failure, systolic dysfunction Diabetes mellitus type II Atrial fibrillation COPD Asthma Prostate cancer post resection Surgical History Cardiac stenting CABG Prostatectomy Pacemaker Family History Father - , coronary artery disease Mother - , diabetes mellitus Sister - , [place] age 66 Social History Hx Alcohol Use: Yes (1 beer/ week) Hx Substance Use: No Hx Tobacco Use: No Smoking Status: Former Smoker (quit in 1964) Years of Smokin Living Arrangement: with Family Exam Vital Signs Vital Sign - Last Date Time Temp Pulse Resp B/P Pulse Ox O2 Delivery O2 Flow Rate FiO2 10/04/16 19:20 37.2 60 21 95/50 94 Room Air Exam General: No acute distress, well-developed, well-nourished, appropriately interactive HEENT: Normocephalic, atraumatic. Hearing aids in place. Upper and lower dentures. Mucous membranes dry. Pupils equal, round, and reactive to light and accommodation. Anicteric sclerae, moist conjunctivae, and no lid lag. Neck: Supple with full range of motion. No jugular venous distension. No bruits. No lymphadenopathy or thyromegaly. Chest: Pain to palpation over the lower sternum, well-healed surgical scar from prior CABG. Cardiovascular: Irregularly irregular with no murmurs, rubs, or gallops appreciated. Pulmonary: Coarseness of the bilateral lung bases right greater than left. No wheezes. Normal respiratory effort with no use of accessory muscles. Abdomen: Bowel tones present. Soft, nontender, nondistended. No hepatosplenomegaly or masses appreciated. Extremities: No lower extremity edema, clubbing, or cyanosis. Skin: Warm to the touch. Mild tenting of skin. Scattered ecchymotic lesions on extremities. Neurological: Cranial nerves grossly intact. Normal muscle strength, tone, and bulk. No known gait impairment. Psychiatric: Normal mood and affect. Alert and oriented to person, place, and time. Lab and Diagnostics Result Diagram: 10/04/16171410/04/161714 X-Rays, CTs and MRIs CT CHEST WITHOUT CONTRAST IMPRESSION: 1. Small region of consolidation in the right posterior costophrenic angle with patchy bibasilar opacities consistent with an infectious or inflammatory process. The findings are suggestive of aspiration and similar in distribution to the findings on the prior CT. 2. Small hiatal hernia. Dictated by: Jose Montelongo M.D. on 10/04/2016 at 18:25 Approved by: Jose Montelongo M.D. on 10/04/2016 at 18:31 X-RAY CHEST ONE VIEW, PORTABLE IMPRESSION: 1. No acute cardiopulmonary disease. Dictated by: Jose Montelongo M.D. on 10/04/2016 at 17:39 Approved by: Jose Montelongo M.D. on 10/04/2016 at 17:40 12-lead ECG EKG on 10/04/16 at 1709: Atrial fibrillation with rate of 77, QT 468, old anterior and inferior infarct Assessment & Plan Eric Medeiros is a 86-year-old man with past medical history significant for coronary artery disease status post CABG and stenting, CHF, atrial fibrillation , and insulin-dependent diabetes who presents with increased shortness of breath. Admitted for possible community acquired versus aspiration pneumonia. 1. Possible community-acquired versus aspiration pneumonia, present on admission, active. Patient presented with worsening productive cough and shortness of breath. Risk factors for aspiration include hiatal hernia, reflux, and recent difficulties with choking over the last 6-12 months. - Chest CT showed right lower lobe infiltrate consistent with aspiration pattern. - Initial labs revealed leukocytosis of 15.0 with a neutrophil predominance in calcitonin 0.24. - Blood and sputum cultures ordered and pending. - Strep pneumoniae and Legionella antigens pending. - Azithromycin and ceftriaxone given in the ED. Due to concern for possible aspiration patient switched to Unasyn. - Patient given an initial dose of prednisone 40 mg in the ED. No further steroid treatment as this appears to be infectious in nature. - Repeat CBC and pro-calcitonin in the morning. - Duonebs every 4 hours while awake. - Albuterol every 4 hours when necessary. 2. Acute on chronic kidney injury, present on admission, active. Baseline creatinine appears to be around 1.4-1.5. Currently 1.6 likely due to decreased oral intake over the last few days. - Gentle IV fluid hydration as patient has CHF. - We will avoid nephrotoxic medications. Unasyn was reviewed with pharmacist it did not require renal dosing as patient's creatinine clearance is greater than 30. - Repeat urine creatinine in the morning. 3. COPD, present on admission, chronic. - Continue home inhalers including Advair and albuterol. - Supplemental oxygen as needed to maintain oxygen saturations between 88-92%. - Treatment as in #1. 4. Coronary artery disease status post CABG and stenting in 2008, present on admission, chronic. In the ED patient complained of chest pain and troponin was 0.014. Patient's description of chest pain was pleuritic and reproducible by palpation. - Trending troponins 3. - Monitor on remote telemetry. - No treatment considered necessary at this time unless symptomatology changes or troponins rise. 5. Atrial fibrillation, present on admission, chronic. - EKG showed A. fib that was rate controlled at 77. - Continue home regimen of verapamil 240 mg at bedtime. - Remote telemetry overnight. 6. Congestive heart failure with reduced ejection fraction, present on admission, chronic. Most recent echo on 07/30/15 showed an EF of 45-50%. - Due to labile blood pressure since presentation to ED furosemide dose was decreased from 60 mg to 80 mg. - Patient takes metolazone as needed according to daily weights. - Spironolactone 25 mg daily. - Verapamil 240 mg at bedtime. 7. Diabetes mellitus insulin using, present admission, chronic. - Home regimen of metformin held. - Humalog 28 units twice a day. - NovoLog 2-6 units 3 times a day with meals. - Hemoglobin A1c pending. PRN Medications - Acetaminophen as needed for mild pain/fever/headache - Bowel regimen as needed - Antiemetic as needed Patient is admitted under inpatient status with expected length of stay greater than 2 midnights due to severity of presenting symptoms, risk of adverse event, and complexity of treatment plan. Pain Evaluation: Adequate Pain Control VTE Prophylaxis: Theraputic Anticoag with Warfarin, SCDs Resuscitation Status: DNR/DNI:Do Not Resuscitate/Intubate Attending Statement The patient was seen and examined together with house staff on and I agree with the history, exam and plan as outlined in the note above. BRANDIE NORTON DO Oct 04, 2016 19:31 Jennifer Samano DO Oct 05, 2016 05:30
[2016-10-04] MEDS: Verapamil SR 240 mg ER12 Tablet PO SCH (22:14)
[2016-10-04] MEDS: Fluticasone-Salmererol 250-50 Inhaler INHALATION SCH (23:07)
[2016-10-05] VITALS (12 sets, daily range): BP systolic 104–114; BP diastolic 46–70; PULSE 59–87; RESP 18–20; O2SAT 96–99
[2016-10-05] MEDS: Ampicillin-Sulbactam Inj 1,500 MG in 0.9% Sodium Chloride 50 ML IV SCH ×4 (02:13→21:14)
[2016-10-05] MEDS ORDERED: Insulin LISPRO 300 Unit/3 mL Inj SUBQ ONE (02:25)
[2016-10-05] MEDS ORDERED: Glucose 40% Oral Gel 15 Gm Tube PO PRN (03:50)
[2016-10-05] MEDS: Insulin LISPRO 300 Unit/3 mL Inj SUBQ SCH ×4 (04:04→22:00)
[2016-10-05 04:45] LABS: APPEARANCE,URINE CLEAR (CLEAR,HAZY); COLOR,URINE DARK YELLOW (YELLOW); OCCULT BLOOD,URINE NEGATIVE (NEGATIVE); PH,URINE 5.5 (5.0-8.0); UROBILINOGEN,URINE NORMAL (NORMAL)
--- NOTE | 2016-10-05 05:38 | NUR ---
NOC Admit Pt arrived on the floor alert and oriented and has been pleasant and cooperative with care. Denies chest pain. Reports of SOB and is unable to lie flat in bed. Breathing Tx provided by RT every 4 hours. Advair inhaler administered as ordered. IV ABx administered as scheduled. Insulin administered as per sliding scale. Addendum: 10/05/16 at 0602 by KENYON DAVIS RN Sputum and urine sample, and MRSA swab sent to lab.
[2016-10-05 06:29] LABS: BASOPHILS % (AUTO) 0.1 % (0-3); EOSINOPHILS % (AUTO) 0.1 % (0-5); MONOCYTES % (AUTO) 7.5 % (4-12); Mean Corpuscular Hemoglobin 31.2 pg (27.0-35.0); Mean Corpuscular Volume 90.8 fL (81-100); NEUTROPHILS % (AUTO) 86.2 % (40-74); Platelet Count 237 bil/L (150-400)
[2016-10-05 06:46] LABS: INR 2.37 ratio
[2016-10-05] MEDS: Albuterol-Ipratropium 3 mL Inhalation Solution NEB SCH ×4 (07:44→20:43)
[2016-10-05] MEDS ORDERED: Insulin LISPRO 300 Unit/3 mL Inj SUBQ SCH (08:00)
--- NOTE | 2016-10-05 09:05 | DRSVH ---
PROCEDURE: X-RAY CHEST ONE VIEW, PORTABLE ([id number]) INDICATIONS: SOB TECHNIQUE: One view of the chest was acquired. COMPARISON: [facility], CR, XR CHEST 1VW (PORTABLE), 10/04/2016, 16:54. FINDINGS: Surgical changes and devices: Sternal wires and pacemaker are noted. Lungs and pleura: No pleural effusions or pneumothorax. Lungs are clear. Mediastinum: Mediastinal contours appear normal. Heart size is normal. Bones and chest wall: No suspicious bony lesions. Overlying soft tissues appear unremarkable. IMPRESSION: No acute pulmonary process. Dictated by: Mecca Plata M.D. on 10/05/2016 at 9:03 Approved by: Mecca Plata M.D. on 10/05/2016 at 9:03
[2016-10-05] MEDS: Isosorbide Mononitrate 60 mg ER24 Tablet PO SCH (09:12)
[2016-10-05] MEDS: Insulin ASPART 70/30 FlexPen 300 Unit/3 mL Inj SUBQ SCH ×2 (09:14→17:05)
[2016-10-05] MEDS: Fluticasone-Salmererol 250-50 Inhaler INHALATION SCH ×2 (09:14→21:14)
[2016-10-05] MEDS: Polyethylene Glycol (PEG) 17 Gm Powder PO SCH (09:16)
--- NOTE | 2016-10-05 10:52 | NUR ---
Evaluation completed. Recommend barium esophagram. Please go to "Notes" then click on "Assessments and Notes" (bottom left corner of screen). Then select appropriate discipline tab on top of screen.
[2016-10-05] MEDS ORDERED: 0.9% Sodium Chloride 1,000 ML IV ONE (11:45)
--- NOTE | 2016-10-05 12:48 | NUR ---
IV IV occluded at this time, IV restart attempted x 1. Unsuccessful. Pt reports is a very difficult IV start. IV therapy contacted to re-start IV. Call light in reach. Will continue to monitor.
--- NOTE | 2016-10-05 15:03 | NUR ---
Social Work-initial assessment/multidisciplinary rounds: Data:See initial assessment. Pt is a 86 y/o male who was admitted on 10/04/16 for pneumonia per H&P. Pt's insurance is [employer] and PCP is Hina Cabrera MD. EMR reviewed. Pt's readmission score is 5-high risk. SW met with pt and family at bedside, SW role explained. Pt is alert and oriented x3. Pt resides at home with his in [place] where he remains independent with ADLS. Pt drives and uses either a fww or cane at baseline. Pt has home O2 through [facility]. Pt has no HH or SNF history. Pt has no roasterman care insurance or [place] benefits. SW discussed DPOA/ advanced directive, confirms this has been completed, SW encouraged a copy to be brought in. SW provided pt and with discharge planning checklist and encouraged them to call with any questions. SW provided phone number and plan on white board in room. Pt's will provide transport home. SW will continue to follow. Assessment:Pt who is independent at baseline. Plan:Pt to discharge home when medically stable via POV. SW to follow for needs. SW will continue to follow. MORGAN Colin Addendum: 10/05/16 at 1506 by JOSE FRANCISCO LOPEZ Amended: Links added.
--- NOTE | 2016-10-05 17:09 | PCM.PNMED ---
Subjective Date of Service Oct 05, 2016 Subjective says overall feeling better. Denies any other new issues/complaints Exam Vital Signs Vital Sign - Last Date Time Temp Pulse Resp B/P Pulse Ox O2 Delivery O2 Flow Rate FiO2 10/05/16 16:26 36.4 65 18 106/56 98 Room Air 10/05/16 07:44 Intake and Output 10/04/16 10/04/16 10/05/16 Cumulative From/Thru 15:00 23:00 07:00 10/04/16 16:53 - 10/05/16 06:55 Intake Total 384 ml 520 ml 904 ml Output Total 200 ml 200 ml Balance 384 ml 320 ml 704 ml Intake Oral 300 ml 300 ml IV Total 384 ml 220 ml 604 ml Output Urine Total 200 ml 200 ml General: Alert, Cooperative, No Acute Distress Head: Normal Eyes: Scleral Anicteric Nose: Mucous Membr Moist/[place] Mouth: Mucous Membr Moist/[place] Neck: Supple Chest & Lungs: Chest Wall Normal, Clear to auscultation & percussion Cardiovascular: Regular Rate/Rhythm Abdomen: Non-tender, Non-distended, Normoactive bowel tones, Soft Extremities: Other (chronic venous insufficiency changes of LE bilat) Neurological: Grossly Neurologically Intact, Normal Speech IVs and Medications Medications Reviewed: Medications were reviewed in detail Lab and Diagnostics Result Diagram: 10/05/16 0545 10/05/16 0545 X-Rays, CTs and MRIs CT CHEST WITHOUT CONTRAST IMPRESSION: 1. Small region of consolidation in the right posterior costophrenic angle with patchy bibasilar opacities consistent with an infectious or inflammatory process. The findings are suggestive of aspiration and similar in distribution to the findings on the prior CT. 2. Small hiatal hernia. Dictated by: Jose Montelongo M.D. on 10/04/2016 at 18:25 Approved by: Jose Montelongo M.D. on 10/04/2016 at 18:31 X-RAY CHEST ONE VIEW, PORTABLE IMPRESSION: 1. No acute cardiopulmonary disease. Dictated by: Joes Montelongo M.D. on 10/04/2016 at 17:39 Approved by: Jose Montelongo M.D. 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 # Suspected acute pneumonia, likely aspiration pneumonia. Present on admission, active. - Chest CT showed right lower lobe infiltrate consistent with aspiration pattern. - Initial labs revealed leukocytosis of 15.0 - Followup pending cultures - Azithromycin and ceftriaxone given in the ED. Due to concern for possible aspiration patient switched to Unasyn. - Patient given an initial dose of prednisone 40 mg in the ED. No further steroid treatment for now. - Duonebs every 4 hours while awake. - Albuterol every 4 hours when necessary. # Acute on chronic kidney injury, present on admission, active. - Baseline creatinine appears to be around 1.4-1.5. - Gentle IV fluid hydration as patient has CHF. - We will avoid nephrotoxic medications. - Repeat BMP in the morning. # Acute hyponatremia. Present on admission. Ongoing and worsening - Give gentle IV Fluid and followup repeat labs in AM # Acute on chronic COPD exacerbation, present on admission. - Clinically improving - Continue home inhalers and current nebs - Supplemental oxygen as needed to maintain oxygen saturations between 88-92%. # Chronic Coronary artery disease status post CABG and stenting in 2008, present on admission # In the ED patient complained of chest pain and troponin was 0.014. Patient's description of chest pain was pleuritic and reproducible by palpation. - Trending Trop negative x 3 - Monitor on remote telemetry. - No treatment considered necessary at this time unless symptomatology changes # Atrial fibrillation, present on admission, chronic. - EKG showed A. fib that was rate controlled at 77. - Continue home regimen of verapamil 240 mg at bedtime. # Congestive heart failure with reduced ejection fraction, present on admission , chronic. - Most recent echo on 07/30/15 showed an EF of 45-50%. - Continue with current meds # Diabetes mellitus insulin using, present admission, chronic. - Home regimen of metformin held. - Humalog 28 units twice a day. - NovoLog 2-6 units 3 times a day with meals. - Hemoglobin A1c pending. Dispo: 1-2 days VTE Prophylaxis: Theraputic Anticoag with Warfarin, SCDs Resuscitation Status: DNR/DNI:Do Not Resuscitate/Intubate Ankush Payan Oct 05, 2016 17:09 Patient is admitted under inpatient status with expected length of stay greater than 2 midnights due to severity of presenting symptoms, risk of adverse event, and complexity of treatment plan. VTE Prophylaxis: Theraputic Anticoag with Warfarin, SCDs Resuscitation Status: DNR/DNI:Do Not Resuscitate/Intubate Ankush Payan Oct 05, 2016 17:09
[2016-10-05] MEDS ORDERED: Verapamil SR 240 mg ER12 Tablet PO SCH (21:00)
[2016-10-05] MEDS: Verapamil SR 240 mg ER12 Tablet PO SCH (21:14)
[2016-10-06] VITALS (12 sets, daily range): BP systolic 94–121; BP diastolic 51–71; PULSE 61–87; RESP 18–19; O2SAT 95–99
[2016-10-06] MEDS: Ampicillin-Sulbactam Inj 1,500 MG in 0.9% Sodium Chloride 50 ML IV SCH ×4 (02:07→21:03)
--- NOTE | 2016-10-06 05:55 | NUR ---
NOC activity Pt states he's feeling much better. Has been pleasant and cooperative with care. Has ambulated around the hallway 1 lap. Breathing Tx provided by RT. Advair administered as scheduled and PRN. Denies chest pain, n/v or abd discomfort. IV ABx administered as ordered. IVF running 75ml/hr. Will continue to monitor.
[2016-10-06 06:43] LABS: BASOPHILS % (AUTO) 0.1 % (0-3); MONOCYTES % (AUTO) 12.7 % (4-12); Mean Corpuscular Hemoglobin 30.7 pg (27.0-35.0); Mean Corpuscular Volume 91.7 fL (81-100); NEUTROPHILS % (AUTO) 76.4 % (40-74); Platelet Count 265 bil/L (150-400)
[2016-10-06 07:17] LABS: INR 3.24 ratio
[2016-10-06 07:21] LABS: Magnesium 2.3 mg/dL (1.6-2.6)
[2016-10-06] MEDS: Albuterol-Ipratropium 3 mL Inhalation Solution NEB SCH ×4 (07:26→20:58)
[2016-10-06] MEDS: Polyethylene Glycol (PEG) 17 Gm Powder PO SCH (08:30)
[2016-10-06] MEDS: Isosorbide Mononitrate 60 mg ER24 Tablet PO SCH (08:48)
[2016-10-06] MEDS: Fluticasone-Salmererol 250-50 Inhaler INHALATION SCH ×2 (08:48→21:04)
[2016-10-06] MEDS: Insulin ASPART 70/30 FlexPen 300 Unit/3 mL Inj SUBQ SCH ×2 (08:49→18:15)
[2016-10-06] MEDS: Insulin LISPRO 300 Unit/3 mL Inj SUBQ SCH ×4 (08:52→22:43)
--- NOTE | 2016-10-06 10:34 | PCM.PHAPRO ---
Progress Date of Service: Oct 06, 2016 Warfarin dosing Date Oct 05-Oct 06 INR 1.74 2.37 3.24 INR change 0.63 0.87 Warf Dose pt already took @home 2.5MG HOLD Colleen Cm PharmD Oct 06, 2016 10:34
--- NOTE | 2016-10-06 11:11 | NUR ---
Social Work-multidisciplinary rounds: Per MD, pt may be ready to discharge later today. Per RN notes, pt has been up independent in his room. No anticipated discharge needs. MORGAN Colin
--- NOTE | 2016-10-06 11:12 | NUR ---
Social Work-readiness for discharge: Data:EMR reviewed. Pt is on day 2 of hospitalization for pneumonia per H&P. Pt is not medically stable anticipate 1-2 more days. Pt resides at home with his and has been up ambulating in the hallways. Pt's to provide transport home. No anticipated discharge needs. SW will continue to follow if needs arise. Assessment:Pt who is independent at baseline. Plan:Pt to discharge home when medically stable via POV.No anticipated discharge needs. SW will continue to follow if needs arise. Colleen López MSW
[2016-10-06] MEDS ORDERED: 0.9% Sodium Chloride 250 ML ONE (14:53)
--- NOTE | 2016-10-06 15:18 | PCM.PNMED ---
Subjective Date of Service Oct 06, 2016 Subjective Denies any other new issues/complaints Exam Vital Signs Vital Sign - Last Date Time Temp Pulse Resp B/P Pulse Ox O2 Delivery O2 Flow Rate FiO2 10/06/16 13:09 36.4 86 18 121/71 97 Room Air 10/05/16 07:44 Intake and Output 10/05/16 10/05/16 10/06/16 Cumulative From/Thru 15:00 23:00 07:00 10/04/16 16:53 - 10/06/16 06:35 Intake Total 502 ml 690 ml 2096 ml Output Total 700 ml 1380 ml 2280 ml Balance -198 ml -690 ml -184 ml Intake Oral 502 ml 150 ml 952 ml IV Total 540 ml 1144 ml Output Urine Total 700 ml 1380 ml 2280 ml Exam General: Alert, Cooperative, No Acute Distress Head: Normal Eyes: Scleral Anicteric Nose: Mucous Membr Moist/[place] Mouth: Mucous Membr Moist/[place] Neck: Supple Chest & Lungs: Chest Wall Normal, Clear to auscultation bilat Cardiovascular: Regular Rate/Rhythm Abdomen: Non-tender, Non-distended, Normoactive bowel tones, Soft Extremities: Other (chronic venous insufficiency changes of LE bilat) Neurological: Grossly Neurologically Intact, Normal Speech IVs and Medications Medications Reviewed: Medications were reviewed in detail Lab and Diagnostics Result Diagram: 10/06/1653010/06/16 05 X-Rays, CTs and MRIs CT CHEST WITHOUT CONTRAST IMPRESSION: 1. Small region of consolidation in the right posterior costophrenic angle with patchy bibasilar opacities consistent with an infectious or inflammatory process. The findings are suggestive of aspiration and similar in distribution to the findings on the prior CT. 2. Small hiatal hernia. Dictated by: Jose Montelongo M.D. on 10/04/2016 at 18:25 Approved by: Jose Monetlongo M.D. on 10/04/2016 at 18:31 X-RAY CHEST ONE VIEW, PORTABLE IMPRESSION: 1. No acute cardiopulmonary disease. Dictated by: Jose Montelongo M.D. on 10/04/2016 at 17:39 Approved by: Jose Montelongo M.D. 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 # Suspected acute pneumonia, likely aspiration pneumonia. Present on admission, active. - Chest CT showed right lower lobe infiltrate consistent with aspiration pattern. - Initial labs revealed leukocytosis of 15.0 - Followup pending cultures - Azithromycin and ceftriaxone given in the ED. Due to concern for possible aspiration patient switched to Unasyn. - Patient given an initial dose of prednisone 40 mg in the ED. No further steroid treatment for now. - Continue with DuoNeb and Albuterol when necessary. - Check viral PCR # Acute on chronic kidney injury, present on admission - Improving with gentle IV fluid - Baseline creatinine appears to be around 1.4-1.5. - We will avoid nephrotoxic medications. - Repeat BMP in the morning. # Acute hyponatremia. Present on admission. - Resolved with gentle IV Fluid - Followup repeat labs in AM # Acute on chronic COPD exacerbation, present on admission. - Clinically improving - Continue home inhalers and current nebs - Supplemental oxygen as needed to maintain oxygen saturations between 88-92%. # Chronic Coronary artery disease status post CABG and stenting in 2008, present on admission # In the ED patient complained of chest pain and troponin was 0.014. Patient's description of chest pain was pleuritic and reproducible by palpation. - Trending Trop negative x 3 - Monitor on remote telemetry. - No treatment considered necessary at this time unless symptomatology changes # Atrial fibrillation, present on admission, chronic. - EKG showed A. fib that was rate controlled at 77. - Continue home regimen of verapamil 240 mg at bedtime. - Continue with Coumadin (dose per pharmacy) - Followup daily INR # Congestive heart failure with reduced ejection fraction, present on admission , chronic. - Most recent echo on 07/30/15 showed an EF of 45-50%. - Continue with current meds # Diabetes mellitus insulin using, present admission, chronic. - Home regimen of metformin held. - Humalog 28 units twice a day. - NovoLog 2-6 units 3 times a day with meals. - Hemoglobin A1c 7.2 # Generalized weakness - PT consult Dispo: 1-2 days VTE Prophylaxis: Theraputic Anticoag with Warfarin, SCDs Resuscitation Status: DNR/DNI:Do Not Resuscitate/Intubate nAkush Payan Oct 06, 2016 15:18
--- NOTE | 2016-10-06 15:36 | NUR ---
Evaluation completed. Please go to "Notes" then click on "Assessments and Notes" (bottom left corner of screen). Then select appropriate discipline tab on top of screen.
--- NOTE | 2016-10-06 19:19 | NUR ---
Blood sugars Pt attempting to administer insulin, observed bad technique. Blood sugars increased this shift. RN administering all further insulin dosages. ACHS checks in place at this time.
[2016-10-06] MEDS: Verapamil SR 240 mg ER12 Tablet PO SCH (21:03)
[2016-10-07] MEDS: Ampicillin-Sulbactam Inj 1,500 MG in 0.9% Sodium Chloride 50 ML IV SCH ×2 (02:40→09:18)
[2016-10-07 03:29] VITALS: BP 110/65; PULSE 83; RESP 18; O2SAT 98
--- NOTE | 2016-10-07 05:27 | NUR ---
NOC/Shoulder pain Pt reports of right shoulder pain. Denies chest pain. SOB with exertion but states that it's getting better. Breathing Tx provided by RT and advair administered as scheduled. IV Abx administered as scheduled. VSS and has been afebrile overnight.
[2016-10-07 06:50] LABS: INR 2.23 ratio
[2016-10-07] MEDS: Insulin ASPART 70/30 FlexPen 300 Unit/3 mL Inj SUBQ SCH (08:00)
[2016-10-07] MEDS: Albuterol-Ipratropium 3 mL Inhalation Solution NEB SCH (08:30)
[2016-10-07] MEDS: Polyethylene Glycol (PEG) 17 Gm Powder PO SCH (08:30)
[2016-10-07 09:13] VITALS: BP 107/57; PULSE 62; RESP 18; O2SAT 96
[2016-10-07] MEDS: Isosorbide Mononitrate 60 mg ER24 Tablet PO SCH (09:17)
[2016-10-07] MEDS: Fluticasone-Salmererol 250-50 Inhaler INHALATION SCH (09:17)
[2016-10-07] MEDS: Insulin LISPRO 300 Unit/3 mL Inj SUBQ SCH ×2 (09:22→11:59)
--- NOTE | 2016-10-07 10:43 | NUR ---
Social Work-multidisciplinary rounds: Per MD in morning rounds, pt may discharge later today or tomorrow. PT has cleared for home with outpt PT services. No anticipated discharge needs. MORGAN Colin
[2016-10-07] MEDS ORDERED: AMOX-366 PO (11:11)
[2016-10-07 11:21] VITALS: PULSE 61
--- NOTE | 2016-10-07 11:24 | PCM.DIMED ---
Discharge Instructions Date of Service Oct 07, 2016 Dates of Hospitalization Oct 04, 2016 at 19:26 Discharge Diagnosis Discharge Diagnosis # Acute pneumonia, likely aspiration pneumonia. Present on admission. Improving - Chest CT showed right lower lobe infiltrate consistent with aspiration pattern. # Acute on chronic kidney injury, present on admission. Improving # Acute hyponatremia. Present on admission. Resolved # Acute on chronic COPD exacerbation, present on admission. - Clinically improving # Chronic Coronary artery disease status post CABG and stenting in 2008, present on admission. Presumed stable # Chronic atrial fibrillation, present on admission. Rate controlled and stable. # Chronic anticoagulation with Warfarin (Coumadin). INR therapeutic at 2.23 by day of discharge # Congestive heart failure with reduced ejection fraction, present on admission , chronic. Stable. # Diabetes mellitus insulin using, present admission, chronic. Stable. - Hemoglobin A1C 7.2 # Generalized weakness Medication Instructions Additional med instructions Stop taking Metformin, given your acute kidney injury, and followup with your primary care provider to decide if and when to resume this medication. Diet Discharge Diet: Low fat, Low Sodium, Heart Healthy, Diabetic Activity Discharge Activity: Other (ambulate with FWW upon discharge until balance and functional strength improve) Call your provider Call your provider for: Fever or Chills, Shortness of breath, Bleeding, Chest pain, Excessive diarrhea Patient Instructions Patient Instructions Seek immediate medical attention if any new or worsening signs or symptoms occur. Follow-up plan 1. Followup with primary care provider in 3-7 days Follow-up Provider: Hina Cabrera MD, [place] Oct 07, 2016 11:24
--- NOTE | 2016-10-07 12:04 | NUR ---
Social Work-discharge: Data:EMR Reviewed. Pt is on day 3 of hospitalization for pneumonia per H&P. Pt is medically stable for discharge. PT has seen pt and recommended outpt PT services. Pt has Home o2 he uses at night through [facility]. SW confirmed plan with pt and , no needs. Pt's to provide transport home. No discharge needs identified. All updated and agreeable to plan. Assessment:pt who is independent at baseline. Plan:Pt to discharge home today via POV. No discharge needs identified. All updated and agreeable to plan. MORGAN Colin
--- NOTE | 2016-10-07 13:05 | NUR ---
Discharge D/C to home . D/C instructions and f/u info provided. No further questions at this time. Escorted off floor with all belongings, packet and RX via w/c and [employer].
--- NOTE | 2016-10-07 18:50 | PCM.DC.MED ---
Discharge Summary Date of Service Oct 07, 2016 Dates of Hospitalization Date of Hospital Admission Oct 04, 2016 at 19:26 Date of Discharge: Oct 07, 2016 Providers: Admitting Physician: Jennifer Samano DO Primary Care Physician: Hina Cabrera MD Attending Physician: Ankush Moody Diagnosis at Time of Discharge Diagnosis at Time of Discharge # Acute pneumonia, likely aspiration pneumonia. Present on admission. Improving - Chest CT showed right lower lobe infiltrate consistent with aspiration pattern. # Acute on chronic kidney injury, present on admission. Improving # Acute hyponatremia. Present on admission. Resolved # Acute on chronic COPD exacerbation, present on admission. - Clinically improving # Chronic Coronary artery disease status post CABG and stenting in 2008, present on admission. Presumed stable # Chronic atrial fibrillation, present on admission. Rate controlled and stable. # Chronic anticoagulation with Warfarin (Coumadin). INR therapeutic at 2.23 by day of discharge # Congestive heart failure with reduced ejection fraction, present on admission , chronic. Stable. # Diabetes mellitus insulin using, present admission, chronic. Stable. - Hemoglobin A1C 7.2 # Generalized weakness Procedures XRay, CTs & MRIs CT CHEST WITHOUT CONTRAST IMPRESSION: 1. Small region of consolidation in the right posterior costophrenic angle with patchy bibasilar opacities consistent with an infectious or inflammatory process. The findings are suggestive of aspiration and similar in distribution to the findings on the prior CT. 2. Small hiatal hernia. Dictated by: Jose Montelongo M.D. on 10/04/2016 at 18:25 Approved by: Jose Montelongo M.D. on 10/04/2016 at 18:31 X-RAY CHEST ONE VIEW, PORTABLE IMPRESSION: 1. No acute cardiopulmonary disease. Dictated by: Jose Montelongo M.D. on 10/04/2016 at 17:39 Approved by: Jose Montelongo M.D. on 10/04/2016 at 17:40 ECG 12 Lead EKG on 10/04/16 at 1709: Atrial fibrillation with rate of 77, QT 468, old anterior and inferior infarct Brief History 86-year-old man with past medical history significant for coronary artery disease status post CABG and stenting, CHF, atrial fibrillation, and insulin- dependent diabetes who presents with increased shortness of breath. Hospital Course # Suspected acute pneumonia, likely aspiration pneumonia. Present on admission, active. - Chest CT showed right lower lobe infiltrate consistent with aspiration pattern. - Initial labs revealed leukocytosis of 15.0 - Azithromycin and ceftriaxone given in the ED. Due to concern for possible aspiration patient switched to Unasyn. - Patient given an initial dose of prednisone 40 mg in the ED. No further steroid treatment for now. - Continued with DuoNeb and Albuterol when necessary. - viral PCR was negative - Will d/c home with PO Augmentin # Acute on chronic kidney injury, present on admission - Improved with gentle IV fluid - Baseline creatinine appears to be around 1.4-1.5. - We avoided nephrotoxic medications. # Acute hyponatremia. Present on admission. - Resolved with gentle IV Fluid # Acute on chronic COPD exacerbation, present on admission. - Clinically improving - Continued home inhalers and current nebs - Supplemental oxygen as needed to maintain oxygen saturations between 88-92%. # Chronic Coronary artery disease status post CABG and stenting in 2008, present on admission - In the ED patient complained of chest pain and troponin was 0.014. Patient's description of chest pain was pleuritic and reproducible by palpation. - Trending Trop negative x 3 - Monitored on remote telemetry. - No treatment considered necessary at this time # Atrial fibrillation, present on admission, chronic. - EKG showed A. fib that was rate controlled at 77. - Continued home regimen of verapamil 240 mg at bedtime. - Continued with Coumadin (dose per pharmacy) # Congestive heart failure with reduced ejection fraction, present on admission , chronic. - Most recent echo on 07/30/15 showed an EF of 45-50%. - Continued with home meds # Diabetes mellitus insulin using, present admission, chronic. - Home regimen of metformin held given REYNA - Hemoglobin A1c 7.2 # Generalized weakness - PT consulted and cleared pt for d/c home by day of discharge patient reports breathing improved back to baseline and expresses eagerness to go home. Exam Vital Signs (Last) Date Time Temp Pulse Resp B/P Pulse Ox O2 Delivery O2 Flow Rate FiO2 10/07/16 11:21 61 10/07/16 09:13 36.4 18 107/57 96 Room Air 10/05/16 07:44 Exam General: Alert, Cooperative, No Acute Distress Head: Normal Eyes: Scleral Anicteric Nose: Mucous Membr Moist/[place] Mouth: Mucous Membr Moist/[place] Neck: Supple Chest & Lungs: Chest Wall Normal, Clear to auscultation bilat Cardiovascular: Regular Rate/Rhythm Abdomen: Non-tender, Non-distended, Normoactive bowel tones, Soft Extremities: Other (chronic venous insufficiency changes of LE bilat) Neurological: Grossly Neurologically Intact, Normal Speech Test 10/04/16 17:15 10/05/16 04:30 10/05/16 05:45 10/05/16 08:48 Hemoglobin A1c 7.2% (4.8-5.6) Pro-B-Type Natriuretic Peptide 1458pg/mL (0-486) Hold Moreira Top Tube Received (Received) Urine Color Dark yellow (YELLOW) Urine Appearance Clear (CLEAR,HAZY) Urine pH 5.5 (5.0-8.0) Urine Specific [place] 1.020 (1.003-1.035) Urine Protein Negativemg/dL (NEG,TRACE) Urine Glucose (UA) 250mg/dL (NEGATIVE) Urine Ketones Negativemg/dL (NEGATIVE) Urine Occult Blood Negative (NEGATIVE) Urine Nitrite Negative (NEGATIVE) Urine Bilirubin Negative (NEGATIVE) Urine Urobilinogen Normalmg/dL (NORMAL) Urine Leukocyte Esterase Negative (NEGATIVE) Urine RBC 0-2/hpf (0-2) Urine WBC 0-5/hpf (0-5) Urine Epithelial Cells Occasional/hpf (NONE-MOD) Urine Crystals None seen (NONE SEEN) Urine Bacteria Few/hpf (NONE-FEW) Urine Hyaline Casts >20/lpf (NONE) Urine Granular Casts None seen (NONE SEEN) Urine Waxy Casts None seen (NONE SEEN) Urine Red Blood Cell Casts None seen (NONE SEEN) Urine White Blood Cell Casts None seen (NONE SEEN) Urine Mucus Present (None Seen) Urine Trichomonas None seen (NONE SEEN) Urine Yeast None (NONE SEEN) Urinalysis Comment None Urine Culture Reflexed Not indicated Urine Legionella pneumophilia Ag Negative (Negative) Total Bilirubin 0.4mg/dL (0.0-1.2) Aspartate Amino Transf (AST/SGOT) 13U/L (0-50) Alanine Aminotransferase (ALT/SGPT) 13U/L (0-44) Alkaline Phosphatase 88U/L (25-160) Total Protein 6.5g/dL (6.4-8.4) Albumin 3.2g/dL (3.4-5.0) Troponin T 0.010ug/L (0.0-0.011) Test 10/06/16 05:31 10/07/16 06:00 White Blood Count 11.4th/mm3 (3.8-10.1) Red Blood Count 4.10mil/mm3 (4.40-5.80) Hemoglobin 12.6g/dL (13.8-17.2) Hematocrit 37.6% (41.0-50.0) Mean Corpuscular Volume 91.7fL (81-100) Mean Corpuscular Hemoglobin 30.7pg (27.0-35.0) Mean Corpuscular Hemoglobin Concent 33.5% (32.0-37.0) Red Cell Distribution Width 14.2% (12.3-15.4) Platelet Count 265bil/L (150-400) Neutrophils (%) (Auto) 76.4% (40-74) Lymphocytes (%) (Auto) 9.4% (14-46) Monocytes (%) (Auto) 12.7% (4-12) Eosinophils (%) (Auto) 1.0% (0-5) Basophils (%) (Auto) 0.1% (0-3) Sodium Level 136mEq/L (134-144) Potassium Level 4.4mEq/L (3.5-5.2) Chloride Level 94mEq/L (97-108) Carbon Dioxide Level 24mmol/L (18-29) Blood Urea Nitrogen 54mg/dL (8-27) Creatinine 1.42mg/dL (0.76-1.27) Estimat Glomerular Filtration Rate 50mL/min (>59) Glucose Level 131mg/dL (60-99) Calcium Level 9.1mg/dL (8.5-10.1) Magnesium Level 2.3mg/dL (1.6-2.6) Prothrombin Time 24.2sec (8.1-12.5) Prothromb Time International Ratio 2.23ratio Procalcitonin 0.27ng/mL (0.00-0.08) Discharge Medications Discharge Medications Albuterol Neb Soln (Albuterol Neb Soln) 2.5 Mg/3 Ml Vial.neb 2.5 MG INHALATION QID (Reported) Amoxicillin/Clav K 875-125 mg (Augmentin 875-125 mg) 1 Each Tablet 1 TABLET PO BID Prescribed by: ANKUSH MOODY MD Atorvastatin Calcium (Atorvastatin Calcium) 20 Mg Tablet 20 MG PO HS (Reported) Calcium Citrate/Vitamin D3 (Citracal-Vit D 200 mg-250 Tab) 1 Each Tablet 1 EACH PO BIDWM (Reported) Fluticasone Propionate (Fluticasone Propionate Nasal) 16 Gm [place].susp 1 SPRAY NASAL BID (Reported) Fluticasone/Salmeterol (Advair 250-50 Diskus) 60 Puff/Inh Disk 1 PUFF INH BID ( Reported) Furosemide (Furosemide) 80 Mg Tab 160 MG PO QAM (Reported) Insulin Aspart (NovoLOG U100 Insulin Vial) 100 U/Ml U 2-6 UNIT SUBQ TIDWM ( Reported) PER SLIDING SCALE FOR BG > 200, PT AVERAGES ~ 4 UNITS. Insulin NPL/Insulin Lispro (HumaLOG 75/25 U100 Insulin Kwikpen) 100 Unit/1 Ml Insuln.pen 28 UNITS SUBQ BIDWM (Reported) Isosorbide MN ER (Isosorbide MN ER) 60 Mg Tab.er.24h 60 MG PO QAM (Reported) Polyethylene Glycol 3350 (Miralax) 17 Gm Powd.pack 17 GM PO DAILY (Reported) Potassium Chloride (Potassium Chloride) 10 Meq Tab.er.prt 10 MEQ PO QIDWM ( Reported) Spironolactone (Spironolactone) 25 Mg Tablet 25 MG PO QAM (Reported) Verapamil ER (Verapamil ER) 240 Mg Tber 240 MG PO HS (Reported) Warfarin Sodium (Warfarin Sodium) 5 Mg Tablet 2.5 MG PO ,,,, (Reported) Warfarin Sodium (Warfarin Sodium) 5 Mg Tablet 5 MG PO Wednesday and ( Reported) As needed Albuterol HFA (Proair HFA) 8.5 Gm Hfa.aer.ad 1 PUFF INH q4-6 hours PRN PRN For Shortness of Breath (Reported) Docusate Sodium (Docusate Sodium) 250 Mg Capsule 250 MG PO DAILY PRN PRN For Constipation (Reported) Metolazone (Metolazone) 2.5 Mg Tablet 2.5 MG PO Q5D PRN PRN EDEMA (Reported) Nitroglycerin SL (Nitrostat) 0.4 Mg Tab.subl 0.4 MG SL Q5MIN PRN PRN For Chest Pain (Reported) Additional med instructions Stop taking Metformin, given your acute kidney injury, and followup with your primary care provider to decide if and when to resume this medication. Followup Plan Disposition: Home Follow-up plan 1. Followup with primary care provider in 3-7 days Discharge Diet: Low fat, Low Sodium, Heart Healthy, Diabetic Discharge Activity: Other (ambulate with FWW upon discharge until balance and functional strength improve) Patient Instructions Seek immediate medical attention if any new or worsening signs or symptoms occur. Follow-up Provider: Hina Cabrera MD Time spent 35 min copies to: Hina Cabrera MD, [place] Oct 07, 2016 18:50
== END 2016-10-07 12:38 | disposition home or self-care (01) | DRG 178 ==
LOC: SED 16:50 → MPC 19:26
PROVIDERS: ADMIT Internal Medicine; ATTEND Internal Medicine
DX: J69.0 Pneumonitis due to inhalation of food and vomit (principal); N17.9 Acute kidney failure, unspecified; I50.22 Chronic systolic (congestive) heart failure; E87.1 Hypo-osmolality and hyponatremia; J44.1 Chronic obstructive pulmonary disease with (acute) exacerbation; Z87.891 Personal history of nicotine dependence; E11.9 Type 2 diabetes mellitus without complications; Z79.4 Long term (current) use of insulin; Z95.1 Presence of aortocoronary bypass graft; I48.2 Chronic atrial fibrillation; Z79.01 Long term (current) use of anticoagulants; Z95.5 Presence of coronary angioplasty implant and graft; Z66 Do not resuscitate; I12.9 Hypertensive chronic kidney disease with stage 1 through stage 4 chronic kidney disease, or unspecified chronic kidney disease; N18.9 Chronic kidney disease, unspecified

== ENCOUNTER 2016-10-19 16:35 | Emergency (ER) | payer MEDICARE, OTHER ==
[~2016-10-19] VITALS: Ht 172.7 cm; Wt 86.8 kg
[~2016-10-19 16:35] MED LIST changes: +AMOX-366 PO; +INSU100C8 SUBQ; -METF1000 PO; -ZIT250 PO
[2016-10-19 17:01] VITALS: BP 112/71; PULSE 66; RESP 18; O2SAT 100
--- NOTE | 2016-10-19 18:30 | DRSVH ---
PROCEDURE: X-RAY CHEST ONE VIEW, PORTABLE ([id number]) INDICATIONS: 86 year-old male with shortness of breath. TECHNIQUE: One view of the chest was acquired. COMPARISON: [facility], CR, XR CHEST 2VW, 10/15/2016, 12:29. [facility], CR , XR CHEST 1VW (PORTABLE), 10/05/2016, 4:16. [facility], CR, XR CHEST 1VW (PORTABLE), 11/2016, 16:54. FINDINGS: Surgical changes and devices: Left chest wall dual chamber pacemaker is again noted, as well as media n sternotomy wires. Lungs and pleura: No pleural effusions or pneumothorax. Lungs are clear. Mediastinum: Mediastinal contours appear normal. Heart size is normal. There is aortic atheroscler osis. Bones and chest wall: No suspicious bony lesions. Overlying soft tissues appear unremarkable. IMPRESSION: No acute cardiopulmonary disease. Dictated by: Dwayne Loza M.D. on 10/19/2016 at 18:27 Approved by: Dwayne Loza M.D. on 10/19/2016 at 18:28
--- NOTE | 2016-10-19 18:45 | ED.REPORT ---
HPI-Dyspnea / Wheezing Date of Service Oct 19, 2016 ED Provider: Michael Duncan MD Pt is an 86 y/o male w/ a hx of CAD and VA, IDDM, asthma, CHF, COPD, HTN, presenting to the ED with his family c/o generalized weakness and fatigue onset since he was discharged 12 days ago. The patient was discharged 12 days ago with diagnosis of aspiration pneumonia and COPD exacerbation and prescribed antibiotics for which he has 5 days left of the course. Since discharge, he has been feeling generally weak and therefore has had difficulty moving around at home. The only help at home he has is his . He is able to ambulate with a walker occasionally. He c/o associated ongoing cough, orthopnea. Pt denies fever , chills, CP, abdominal pain, nausea, vomiting. He is also stating that he has been experiencing back pain for 6-7 months and is wondering if his history of prostate CA has anything to do with it. Nursing Notes Stated Complaint: PNEUMONIA,SOB,LETHARGIC Chief Complaint: Respiratory Complaints Nursing Notes Reviewed: Yes Allergies: Coded Allergies: No Known Allergies (Verified , 10/19/16) Scheduled Albuterol Neb Soln (Albuterol Neb Soln) 2.5 Mg/3 Ml Vial.neb 2.5 MG INHALATION QID Amoxicillin/Clav K 875-125 mg (Augmentin 875-125 mg) 1 Each Tablet 1 TABLET PO BID Atorvastatin Calcium (Atorvastatin Calcium) 20 Mg Tablet 20 MG PO HS Calcium Citrate/Vitamin D3 (Citracal-Vit D 200 mg-250 Tab) 1 Each Tablet 1 EACH PO BIDWM Fluticasone Propionate (Fluticasone Propionate Nasal) 16 Gm [place].susp 1 SPRAY NASAL BID Fluticasone/Salmeterol (Advair 250-50 Diskus) 60 Puff/Inh Disk 1 PUFF INH BID Furosemide (Furosemide) 80 Mg Tab 160 MG PO QAM Insulin Aspart (NovoLOG U100 Insulin Vial) 100 U/Ml U 2-6 UNIT SUBQ TIDWM PER SLIDING SCALE FOR BG > 200, PT AVERAGES ~ 4 UNITS. Insulin NPL/Insulin Lispro (HumaLOG 75/25 U100 Insulin Kwikpen) 100 Unit/1 Ml Insuln.pen 28 UNITS SUBQ BIDWM Isosorbide MN ER (Isosorbide MN ER) 60 Mg Tab.er.24h 60 MG PO QAM Polyethylene Glycol 3350 (Miralax) 17 Gm Powd.pack 17 GM PO DAILY Potassium Chloride (Potassium Chloride) 10 Meq Tab.er.prt 10 MEQ PO QIDWM Spironolactone (Spironolactone) 25 Mg Tablet 25 MG PO QAM Verapamil ER (Verapamil ER) 240 Mg Tber 240 MG PO HS Warfarin Sodium (Warfarin Sodium) 5 Mg Tablet 2.5 MG PO [place],Tu,W,F,Sa Warfarin Sodium (Warfarin Sodium) 5 Mg Tablet 5 MG PO Wednesday and Scheduled PRN Albuterol HFA (Proair HFA) 8.5 Gm Hfa.aer.ad 1 PUFF INH q4-6 hours PRN PRN For Shortness of Breath Docusate Sodium (Docusate Sodium) 250 Mg Capsule 250 MG PO DAILY PRN PRN For Constipation Metolazone (Metolazone) 2.5 Mg Tablet 2.5 MG PO Q5D PRN PRN EDEMA Nitroglycerin SL (Nitrostat) 0.4 Mg Tab.subl 0.4 MG SL Q5MIN PRN PRN For Chest Pain General Time Seen by MD: 18:42 Chief Complaint Other (fatigue) Hx Obtained From: Patient, Spouse Arrived By: Walk-in Sudden in Onset?: No Onset Occurred: More than a week ago... Symptom Duration: Since onset Severity: Current: No pain currently Severity: Maximum: No pain Recent Healthcare: Recent doctor visit, Recent hospitalization, Recent testing , Previous diagnosis, Prior workup Past Medical History Past Medical History Notes: Vacuum Kettle Cook: Dr. Norman Past Medical History Prior VA Hx prostate CA s/p prostatectomy Hx aspiration pneumonia IDDM Reports: Asthma, COPD, Congestive heart failure, Coronary artery disease, Hypertension Past Surgical History Pacemaker Cardiac stenting CABG prostatectomy Smoking History Former Smoker Social History Alcohol Use: 1-3 per week Drug Use: Denies drug use Ambulatory Status Independent Review of Systems Constitutional: Reports: Malaise, Weakness - generalized Respiratory: Reports: Non-productive cough, Shortness of breath Cardiovascular: Reports: Orthopnea, Denies: Chest pain Musculoskeletal: Reports: Back pain Complete sys rev & neg: except as marked. GI: Denies: Abdominal pain, Nausea, Vomiting Physical Exam Initial Vital Signs Vital Signs (First) Date Time Temp Pulse Resp B/P Pulse Ox O2 Delivery O2 Flow Rate FiO2 10/19/16 17:01 36.0 66 18 112/71 100 Room Air Initial VS: Reviewed, Vital signs normal Head / Eyes: Atraumatic, Normocephalic, PERRL ENT: Mucous membranes moist, Conjunctiva normal, No scleral icterus Abdomen / GI: Soft, Non-tender Extremities: Vascular intact, Neuro intact Skin: Warm, Dry, No cyanosis Neurologic: Alert, Oriented, Nonfocal Psychiatric: Mood/affect normal, Behavior normal, Normal thought content General/Constitutional: Awake, Alert, No acute distress, Cooperative, Not toxic appearing Neck: Atraumatic, Supple, No meningismus, Full range of motion Respiratory / Chest: Breath sounds NL, Breath sounds = bilat, No respiratory distress, No rales, No rhonchi, No wheezing Cardiovascular: Heart rate NL, Regular rhythm, Heart sounds NL, No gallop, No murmurs, No rubs Trace edema bilat lower extremities Interpretation & Diagnostics Lab Results Interpretation Result Diagram: 10/19/16193910/19/161939 Test 10/19/16 19:22 10/19/16 19:40 Urine Color Straw (YELLOW) Urine Appearance Clear (CLEAR,HAZY) Urine pH 5.0 (5.0-8.0) Urine Specific [place] 1.010 (1.003-1.035) Urine Protein Negativemg/dL (NEG,TRACE) Urine Glucose (UA) Negativemg/dL (NEGATIVE) Urine Ketones Negativemg/dL (NEGATIVE) Urine Occult Blood Trace (NEGATIVE) Urine Nitrite Negative (NEGATIVE) Urine Bilirubin Negative (NEGATIVE) Urine Urobilinogen Normalmg/dL (NORMAL) Urine Leukocyte Esterase Negative (NEGATIVE) Urine RBC 0-2/hpf (0-2) Urine WBC 0-5/hpf (0-5) Urine Epithelial Cells None/hpf (NONE-MOD) Urine Crystals None seen (NONE SEEN) Urine Bacteria None/hpf (NONE-FEW) Urine Hyaline Casts 5/20/lpf (NONE) Urine Granular Casts None seen (NONE SEEN) Urine Waxy Casts None seen (NONE SEEN) Urine Red Blood Cell Casts None seen (NONE SEEN) Urine White Blood Cell Casts None seen (NONE SEEN) Urine Mucus None seen (None Seen) Urine Trichomonas None seen (NONE SEEN) Urine Yeast None (NONE SEEN) Urinalysis Comment None Urine Culture Reflexed Not indicated White Blood Count 10.8th/mm3 (3.8-10.1) Red Blood Count 4.39mil/mm3 (4.40-5.80) Hemoglobin 13.2g/dL (13.8-17.2) Hematocrit 39.9% (41.0-50.0) Mean Corpuscular Volume 90.9fL (81-100) Mean Corpuscular Hemoglobin 30.1pg (27.0-35.0) Mean Corpuscular Hemoglobin Concent 33.1% (32.0-37.0) Red Cell Distribution Width 14.4% (12.3-15.4) Platelet Count 318bil/L (150-400) Neutrophils (%) (Auto) 73.0% (40-74) Lymphocytes (%) (Auto) 14.3% (14-46) Monocytes (%) (Auto) 10.6% (4-12) Eosinophils (%) (Auto) 1.1% (0-5) Basophils (%) (Auto) 0.2% (0-3) Sodium Level 132mEq/L (134-144) Potassium Level 3.6mEq/L (3.5-5.2) Chloride Level 91mEq/L (97-108) Carbon Dioxide Level 24mmol/L (18-29) Blood Urea Nitrogen 47mg/dL (8-27) Creatinine 1.51mg/dL (0.76-1.27) Estimat Glomerular Filtration Rate 47mL/min (>59) Glucose Level 168mg/dL (60-99) Calcium Level 9.9mg/dL (8.5-10.1) Total Bilirubin 0.4mg/dL (0.0-1.2) Aspartate Amino Transf (AST/SGOT) 12U/L (0-50) Alanine Aminotransferase (ALT/SGPT) 16U/L (0-44) Alkaline Phosphatase 105U/L (25-160) Total Protein 7.9g/dL (6.4-8.4) Albumin 3.4g/dL (3.4-5.0) Hold [place] Top Tube Received (Received) ECG Interpretation ECG Interpretation: Atrial fibrillation rate 71 Q waves in V1-V4 Unchanged from prior Time: 20:38 Interpreted by: ED physician X-Ray Chest Interpretation Chest Xray Interpretation: IMPRESSION: No acute cardiopulmonary disease. Dictated by: Dwayne Loza M.D. on 10/19/2016 at 18:27 Approved by: Dwayne Loza M.D. on 10/19/2016 at 18:28 View: Portable, 1 view Interpretation / Wet Read by: Interpret - Radiologist Re-Eval/Medical Decision Med Decision/Clinical Course 86-year-old male presenting to order is status post hospitalization for pneumonia complaining of fatigue. He normally ambulates with a walker and reports increased difficulty in doing this since mandaeism. It is not been worsening since discharge he is just concerned it has not been getting better. He has been able to ambulate with his walker. His chest x-ray, urine, labs were all within normal limits here. His kidney function is stable. Discussed with the patient he would like to be discharged home. Given it is after hours, I recommend he follow up with his primary doctor tomorrow for possible home physical therapy referral. Patient was discharged home with return precautions. Re-Evaluation/Progress : Time of Eval: 21:57 Re-Evaluation/Progress Note: Pt rechecked. Discussed imaging and labs results. Informed pt of plan for treatment. Pt understands and agrees with plan for treatment. F/U instructions and RTER warnings given. All questions addressed. Counseled Regarding: Diagnosis, Lab results, Need for follow-up, When/why to return to ED Discharge & Departure Impression: Primary Impression: Generalized weakness Additional Impressions: History of pneumonia Chronic renal insufficiency Chronic kidney disease stage: unspecified stage Qualified Code: N18.9 - Chronic kidney disease, unspecified Disposition: Home Discharge Condition All VS Reviewed: Yes Condition: Stable Additional Instructions: The cause of your symptoms is uncertain but is not dangerous right now. Labs and chest x-ray today were reassuring. Your kidney function is somewhat reduced but it is not different than your baseline. I recommend you call Dr. Cabrera tomorrow morning to set up home health treatment and obtain an appointment to be rechecked within the next 2-3 days. Return to the emergency department if you develop persistent chest pain, fever, vomiting, worsening shortness of breath or cough, passing out, worsening weakness or fatigue, or for other concerning symptoms. Referrals: Hina Cabrera MD (PCP) Scribe Attestation Portions of this note were transcribed by Demian Wing. I, Dr. Duncan personally performed the history, physical exam and medical decision-making; I reviewed and confirmed the accuracy of the information in the transcribed note. Signed by Dolores Waite, 10/19/162014 copies to: Hina Cabrera MD, Ben M MD Oct 19, 2016 18:44 DEMIAN WING Oct 19, 2016 20:12
[2016-10-19 19:00] VITALS: BP 117/63; PULSE 69; RESP 24; O2SAT 99
[2016-10-19 19:48] LABS: APPEARANCE,URINE CLEAR (CLEAR,HAZY); COLOR,URINE STRAW (YELLOW)
[2016-10-19 19:49] LABS: OCCULT BLOOD,URINE TRACE (NEGATIVE); UROBILINOGEN,URINE NORMAL (NORMAL)
[2016-10-19 19:58] LABS: BASOPHILS % (AUTO) 0.2 % (0-3)
[2016-10-19 20:07] LABS: MONOCYTES % (AUTO) 10.6 % (4-12)
[2016-10-19 20:11] LABS: EOSINOPHILS % (AUTO) 1.1 % (0-5); Mean Corpuscular Hemoglobin 30.1 pg (27.0-35.0); Mean Corpuscular Volume 90.9 fL (81-100); Platelet Count 318 bil/L (150-400)
[2016-10-19 22:24] VITALS: BP 105/60; PULSE 98; RESP 18; O2SAT 98
== END 2016-10-19 22:26 | disposition home or self-care (01) ==
LOC: SED 16:35
DX: R53.1 Weakness (principal); I12.9 Hypertensive chronic kidney disease with stage 1 through stage 4 chronic kidney disease, or unspecified chronic kidney disease; N18.9 Chronic kidney disease, unspecified; I25.10 Atherosclerotic heart disease of native coronary artery without angina pectoris; I25.2 Old myocardial infarction; J45.909 Unspecified asthma, uncomplicated; I50.9 Heart failure, unspecified; E11.9 Type 2 diabetes mellitus without complications; Z85.46 Personal history of malignant neoplasm of prostate; Z87.891 Personal history of nicotine dependence; Z95.0 Presence of cardiac pacemaker; Z87.01 Personal history of pneumonia (recurrent); Z90.79 Acquired absence of other genital organ(s); Z95.1 Presence of aortocoronary bypass graft; Z79.01 Long term (current) use of anticoagulants; Z79.4 Long term (current) use of insulin

== ENCOUNTER 2016-10-23 16:07 | Inpatient (IN) | payer MEDICARE, OTHER ==
[~2016-10-23] VITALS: Ht 177.8 cm; Wt 88.1 kg
[2016-10-23 16:16] VITALS: BP 104/42; PULSE 79; RESP 24; O2SAT 98
--- NOTE | 2016-10-23 16:30 | ED.REPORT ---
HPI-General Illness Date of Service Oct 23, 2016 ED Provider: Brda Parra MD Patient is an 86 year old male with a history of CHF, COPD, hypertension, diabetes and asthma who presents to the ED via EMS due to a near syncopal event. Associated symptoms include weakness, lightheadedness, fatigue, nausea, shortness of breath and constipation. He says that over the past number of days he has noticed significant pain between his shoulder blades. This has come on at rest and has been relieved promptly with nitroglycerin. He also notices that any degree of exertion causes a similar symptom between his shoulder blades which he attributes to an anginal equivalent. These symptoms are always relieved promptly with nitroglycerin. This is a new anginal pattern for him. He denies diarrhea, chest pain, cough, diarrhea or vomiting. Patient states that the pain is exacerbated with exertion. The patient was seen at the clinic earlier where he was found to be hypotensive and became lightheaded and nearly fainted. The patient recently had pneumonia 3 weeks ago and has continued to feel sick since. Per the patient's , he has been getting worse. He tried taking a nitro this morning and the pain resolved for a short period but returned after he exerted himself again. Patient is currently on Coumadin. Nursing Notes Stated Complaint: HYPOTENSIVE,CHEST PAIN Chief Complaint: Respiratory Distress Nursing Notes Reviewed: Yes Allergies: Coded Allergies: No Known Allergies (Verified , 10/19/16) Scheduled Albuterol Neb Soln (Albuterol Neb Soln) 2.5 Mg/3 Ml Vial.neb 2.5 MG INHALATION QID Atorvastatin Calcium (Atorvastatin Calcium) 20 Mg Tablet 20 MG PO HS Calcium Citrate/Vitamin D3 (Citracal-Vit D 200 mg-250 Tab) 1 Each Tablet 1 EACH PO BIDWM Fluticasone Propionate (Fluticasone Propionate Nasal) 16 Gm [place].susp 1 SPRAY NASAL BID Fluticasone/Salmeterol (Advair 250-50 Diskus) 60 Puff/Inh Disk 1 PUFF INH BID Furosemide (Furosemide) 80 Mg Tab 160 MG PO QAM Insulin Lispro (HumaLOG U100 Insulin Pen) 100 Unit/1 Ml Insuln.pen 4 UNITS SUBQ DAILY @ NOON Insulin NPL/Insulin Lispro (HumaLOG 75/25 U100 Insulin Kwikpen) 100 Unit/1 Ml Insuln.pen 34 UNITS SUBQ BIDWM Isosorbide MN ER (Isosorbide MN ER) 60 Mg Tab.er.24h 60 MG PO QAM Metformin (Metformin) 500 Mg Tablet 500 MG PO BID Potassium Chloride (Potassium Chloride) 10 Meq Tab.er.prt 10 MEQ PO QIDWM Spironolactone (Spironolactone) 25 Mg Tablet 25 MG PO QAM Verapamil ER (Verapamil ER) 240 Mg Tber 240 MG PO DAILYWD Warfarin Sodium (Warfarin Sodium) 5 Mg Tablet 2.5 MG PO DAILYWD Scheduled PRN Albuterol HFA (Proair HFA) 8.5 Gm Hfa.aer.ad 1 PUFF INH q4-6 hours PRN PRN For Shortness of Breath Docusate Sodium (Docusate Sodium) 250 Mg Capsule 250 MG PO DAILY PRN PRN For Constipation Metolazone (Metolazone) 2.5 Mg Tablet 2.5 MG PO Q5D PRN PRN EDEMA Nitroglycerin SL (Nitrostat) 0.4 Mg Tab.subl 0.4 MG SL Q5MIN PRN PRN For Chest Pain Polyethylene Glycol 3350 (Miralax) 17 Gm Powd.pack 17 GM PO DAILY PRN PRN For Constipation General Time Seen by MD: 16:29 Chief Complaint Other (near syncopal event) Hx Obtained From: Patient, Spouse Arrived By: Ambulance Sudden in Onset?: Yes Onset Occurred: Just prior to arrival Location: : Back Quality: Painful Radiation: : Shoulder Severity: Current: Moderate Recent Healthcare: Recent doctor visit, Recent hospitalization Similar Sx Previous: No Past Medical History Past Medical History Notes: Medical Referral Coordinator: Dr. Norman Past Medical History Prior MA Hx prostate CA s/p prostatectomy Hx aspiration pneumonia IDDM Reports: Asthma, COPD, Congestive heart failure, Coronary artery disease, Hypertension Past Surgical History Pacemaker Cardiac stenting CABG prostatectomy Smoking History Former Smoker Social History Alcohol Use: 1-3 per week Drug Use: Denies drug use Other Social History: Good social support (d) Ambulatory Status Independent Review of Systems Full Review of Systems Constitutional: Reports: Fatigue, Malaise, Denies: Chills, Fever Respiratory: Reports: Shortness of breath, Denies: Non-productive cough Cardiovascular: Denies: Chest pain GI: Reports: Constipation, Nausea, Denies: Diarrhea, Vomiting Musculoskeletal: Reports: Back pain, Neck pain Skin: Denies Itching, Denies Rash Neurologic: Reports: Lightheaded, Syncope (near), Weakness Complete sys rev & neg: except as marked. Physical Exam Vital Signs Vital Signs Date Time Temp Pulse Resp B/P Pulse Ox O2 Delivery O2 Flow Rate FiO2 10/23/16 17:59 81 17 93/46 98 Nasal Cannula 1 10/23/16 16:16 36.4 79 24 104/42 98 Nasal Cannula 2 Initial VS: Reviewed General/Constitutional: Awake, Alert Head / Eyes: Atraumatic, Normocephalic, PERRL, EOMI Respiratory / Chest: Atraumatic, No respiratory distress, No rales Cardiovascular: Heart rate NL, Regular rhythm, Heart sounds NL Lower Extremity / Pelvis / MS: Atraumatic, Inspection NL Skin: Atraumatic, Color NL, No rash, Warm, Dry Neurologic: Oriented X3, Speech NL, No motor deficits, No sensory deficits Psychiatric: Affect NL, Mood NL Interpretation & Diagnostics Lab Results Interpretation Result Diagram: 10/23/16 1630 10/23/16 1630 Test 10/23/16 16:30 10/23/16 19:20 10/23/16 20:21 White Blood Count 12.3th/mm3 (3.8-10.1) Red Blood Count 4.86mil/mm3 (4.40-5.80) Hemoglobin 14.7g/dL (13.8-17.2) Hematocrit 43.6% (41.0-50.0) Mean Corpuscular Volume 89.7fL (81-100) Mean Corpuscular Hemoglobin 30.2pg (27.0-35.0) Mean Corpuscular Hemoglobin Concent 33.7% (32.0-37.0) Red Cell Distribution Width 14.3% (12.3-15.4) Platelet Count 314bil/L (150-400) Neutrophils (%) (Auto) 74.4% (40-74) Lymphocytes (%) (Auto) 12.6% (14-46) Monocytes (%) (Auto) 11.2% (4-12) Eosinophils (%) (Auto) 1.0% (0-5) Basophils (%) (Auto) 0.1% (0-3) Prothrombin Time 37.0sec (8.1-12.5) Prothromb Time International Ratio 3.37ratio Sodium Level 135mEq/L (134-144) Potassium Level 3.9mEq/L (3.5-5.2) Chloride Level 91mEq/L (97-108) Carbon Dioxide Level 24mmol/L (18-29) Blood Urea Nitrogen 66mg/dL (8-27) Creatinine 1.88mg/dL (0.76-1.27) Estimat Glomerular Filtration Rate 36mL/min (>59) Glucose Level 175mg/dL (60-99) Calcium Level 10.6mg/dL (8.5-10.1) Magnesium Level 2.4mg/dL (1.6-2.6) Total Bilirubin 0.3mg/dL (0.0-1.2) Aspartate Amino Transf (AST/SGOT) 14U/L (0-50) Alanine Aminotransferase (ALT/SGPT) 14U/L (0-44) Alkaline Phosphatase 113U/L (25-160) Troponin T < 0.010ug/L (0.0-0.011) Pro-B-Type Natriuretic Peptide 685.6pg/mL (0-486) Total Protein 8.7g/dL (6.4-8.4) Albumin 3.8g/dL (3.4-5.0) Hold Urine Received (Received) Urine Color Yellow (YELLOW) Urine Appearance Clear (CLEAR,HAZY) Urine pH 5.5 (5.0-8.0) Urine Specific [place] 1.010 (1.003-1.035) Urine Protein Negativemg/dL (NEG,TRACE) Urine Glucose (UA) Negativemg/dL (NEGATIVE) Urine Ketones Negativemg/dL (NEGATIVE) Urine Occult Blood Negative (NEGATIVE) Urine Nitrite Negative (NEGATIVE) Urine Bilirubin Negative (NEGATIVE) Urine Urobilinogen Normalmg/dL (NORMAL) Urine Leukocyte Esterase Negative (NEGATIVE) Urine RBC 0-2/hpf (0-2) Urine WBC 0-5/hpf (0-5) Urine Epithelial Cells None/hpf (NONE-MOD) Urine Crystals None seen (NONE SEEN) Urine Bacteria None/hpf (NONE-FEW) Urine Hyaline Casts None/lpf (NONE) Urine Granular Casts None seen (NONE SEEN) Urine Waxy Casts None seen (NONE SEEN) Urine Red Blood Cell Casts None seen (NONE SEEN) Urine White Blood Cell Casts None seen (NONE SEEN) Urine Mucus None seen (None Seen) Urine Trichomonas None seen (NONE SEEN) Urine Yeast None (NONE SEEN) Urinalysis Comment None Urine Culture Reflexed Not indicated ECG Interpretation ECG Interpretation: atrial fibrillation, rate 79 nonspecific intraventricular conduction delay old anteriour infarct Time: 17:12 Interpreted by: ED physician X-Ray Chest Interpretation Chest Xray Interpretation: IMPRESSION: No acute cardiopulmonary disease. Dictated by: Dwayne Loza M.D. on 10/23/2016 at 17:16 Approved by: Dwayne Loza M.D. on 10/23/2016 at 17:17 Interpretation / Wet Read by: Interpret - Radiologist Re-Eval/Medical Decision Time of Eval: 19:13 Re-Evaluation/Progress Note: Discussed all results and plan for admit. Patient understansd and agrees to plan. All questions were addressed. Consultation : Referral / Consult Name: Nico Grimaldo MD Consulted With: Hospitalist Call Returned at: 19:16 Airplane Technician: Agrees with eval, Agrees with plan, Accepts admit Counseled Regarding: Diagnosis, Lab results, Need for admission Discharge & Departure Primary Impression: Unstable angina Disposition: ADMITTED TO HOSPITAL Discharge Condition All VS Reviewed: Yes Condition: Stable Referrals: Hina Cabrera MD (PCP) Dolores Attestation Portions of this note were transcribed by Rebecca Dutta. I, Dr. Parra personally performed the history, physical exam and medical decision-making; I reviewed and confirmed the accuracy of the information in the transcribed note. Signed by: Dolores Andre, 10/23/16 copies to: Hina Cabrera MD, Kirk H MD Oct 23, 2016 16:30 Meredith Dutta Oct 23, 2016 16:48
[2016-10-23 16:55] LABS: BASOPHILS % (AUTO) 0.1 % (0-3); MONOCYTES % (AUTO) 11.2 % (4-12); Mean Corpuscular Hemoglobin 30.2 pg (27.0-35.0); Mean Corpuscular Volume 89.7 fL (81-100); NEUTROPHILS % (AUTO) 74.4 % (40-74); Platelet Count 314 bil/L (150-400)
[2016-10-23 17:00] LABS: INR 3.37 ratio
[2016-10-23 17:07] LABS: TROPONIN T < 0.010 ug/L (0.0-0.011)
[2016-10-23 17:17] LABS: Magnesium 2.4 mg/dL (1.6-2.6)
--- NOTE | 2016-10-23 17:19 | DRSVH ---
PROCEDURE: X-RAY CHEST ONE VIEW, PORTABLE ([id number]) INDICATIONS: 86 year-old male with syncope. TECHNIQUE: One view of the chest was acquired. COMPARISON: [facility], CR, XR CHEST 1VW (PORTABLE), 10/19/2016, 18:10. [facility], CR, XR CHEST 2VW, 10/15/2016, 12:29. [facility], CR, XR CHEST 1VW (PORTABLE), 12/2016, 4:16. 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 Patient is statu s post median sternotomy. Lungs and pleura: No pleural effusions or pneumothorax. Lungs are clear. Mediastinum: Mediastinal contours appear normal. Heart size is normal. There is aortic atheroscler osis. Bones and chest wall: No suspicious bony lesions. Overlying soft tissues appear unremarkable. IMPRESSION: No acute cardiopulmonary disease. Dictated by: Dwayne Loza M.D. on 10/23/2016 at 17:16 Approved by: Dwayne Loza M.D. on 10/23/2016 at 17:17
[2016-10-23 17:59] VITALS: BP 93/46; PULSE 81; RESP 17; O2SAT 98
[2016-10-23] MEDS ORDERED: INSU100I18 SUBQ (19:43)
[2016-10-23] MEDS ORDERED: METF500T4 PO (19:43)
[2016-10-23] MEDS ORDERED: Alum-Mag Hydrox-Simeth 30 mL Suspension PO PRN ×2 (20:15→23:45)
[2016-10-23] MEDS ORDERED: Ondansetron 2 mg/mL 2 mL Inj IVPUSH PRN ×2 (20:15→23:45)
[2016-10-23 20:32] LABS: APPEARANCE,URINE CLEAR (CLEAR,HAZY); COLOR,URINE YELLOW (YELLOW); OCCULT BLOOD,URINE NEGATIVE (NEGATIVE); PH,URINE 5.5 (5.0-8.0); UROBILINOGEN,URINE NORMAL (NORMAL)
[2016-10-23 20:46] VITALS: BP_SYST 90; BP_DIAS 4; BP_DIAS 45; PULSE 73; RESP 27; O2SAT 92
[2016-10-23 21:19] VITALS: BP 133/69; PULSE 69; O2SAT 95
[2016-10-23] MEDS ORDERED: Polyethylene Glycol (PEG) 17 Gm Powder PO PRN (21:50)
[2016-10-23] MEDS ORDERED: Albuterol HFA 60 Puff 8 Gm Inhaler INHALATION PRN (21:50)
[2016-10-23] MEDS ORDERED: Albuterol 2.5 mg/3 mL Inhalation Solution NEB PRN (22:05)
[2016-10-23 22:11] VITALS: RESP 16
--- NOTE | 2016-10-23 23:33 | NUR ---
ARRIVAL TO [facility] 3019 Pt arrived to [facility] Room 3019 approx 2100. Pt alert and oriented, very [place]. Pt has both hearing aides, but batteries are , pt needs different batteries from what hospital can provide. VS obtained. Pt placed on remote telemetry, nuclear monitoring technician notified. Pt very weak, shaky w/ OOB activity. Pt denies pain at rest, states pain in upper back w/ activity. Swallow screen performed, pt did not pass, diet changed to NPO, swallow eval ordered. Pt prefers to sleep in recliner at this time. Continued to monitor. Call light in reach. Bed/personal alarms in use. Intentional rounding.
[2016-10-24] VITALS (9 sets, daily range): BP systolic 90–111; BP diastolic 60–70; PULSE 58–85; RESP 16–19; O2SAT 95–98
[2016-10-24] MEDS: 0.9% Sodium Chloride 1,000 ML IV SCH ×2 (00:47→11:11)
--- NOTE | 2016-10-24 00:51 | PCM.HPMED ---
Subjective Date of Service Oct 23, 2016 Primary Provider: Admitting Physician: Primary Care Physician: Hina Cabrera MD Attending Physician: Admit Status: From the Emergency Department Chief Complaint: Shortness of Breath, Near Syncopal Episode History of Present Illness: Eric Medeiros is an 86 year old male with a history of CHF, CAD s/p CABG 1993 and stent, COPD, hypertension, diabetes and atrial fibrillation on warfarin, who presents to the ED via EMS due to a near syncopal event. He was at a clinic getting his INR checked, when they stood him up, he felt lightheaded and dizzy, nearly fainting. He was found to have a blood pressure 90s/80s and a repeat of 80s/50s. EMS then brought him in. He mentions he has never had something like this before. He also reports a posterior, 8/10 neck pain, pressure in nature, that he's had daily with exertion that wraps around anteriorly. It has been occurring daily for the last 3-4 weeks with very minimal walking and has associated SOB and weakness. He did have this pain today in the morning for which he took nitro with relief for about 5 minutes, but had symptoms after exerting himself again. He denies fevers, chills, diaphoresis, nausea, vomiting , abdominal pain and changes in bowel habits. Of note, the patient recently had pneumonia 3 weeks ago and has continued to feel sick since. He is currently finishing day 10 of his Augmentin course. Review of Systems: A comprehensive review of systems was conducted with the patient and found to be negative except as above in the History of Present Illness. Allergies Coded Allergies: No Known Allergies (Verified , 10/19/16) Home Medications From [facility] 07/27/2016 ADVAIR 250-50 DISKUS INHALE 1 PUFF BY MOUTH TWICE A DAY IN THE MORNING AND EVENING 09/22/2016 albuterol sulfate 2.5 mg/3 mL (0.083 %) solution for nebulization INHALE 3 MILLILITER (2.5MG) BY NEBULIZATION ROUTE 4 TIMES EVERY DAY 07/27/2016 ATORVASTATIN 20 MG TABLET TAKE 1 TABLET BY MOUTH EVERY NIGHT AT BEDTIME 09/06/2013 BD ULTRA-FINE PEN NDL [id number] USE TO TEST BLOOD SUGAR TWICE DAILY DIRECTED 10/08/2010 Citracal with Vitamin D Maximum 315 mg-250 unit Tab take 1 tablet by mouth twice daily docusate sodium 250 mg capsule take 1 capsule (250MG) by oral route every day as needed 02/11/2016 FLUTICASONE PROP 50 MCG SPRAY USE 1 SPRAY IN EACH NOSTRIL TWICE A DAY 12/23/2015 FUROSEMIDE 80 MG TABLET TAKE 1 TABLET BY MOUTH ONCE TO TWICE DAILY. 08/26/2016 Humalog KwikPen 100 unit/mL subcutaneous inject by subcutaneous route 2-10 units with meals 2-3 times a day. this replaces novolog in 201503/16/2016 HUMALOG MIX 75-25 KWIKPEN INJECT 24 TO 30 UNITS SUBCUTANEOUSLY TWICE A DAY 01/01/2016 isosorbide mononitrate ER 60 mg tablet,extended release 24 hr take 1 tablet by oral route every day in the morning 10/15/2016 levofloxacin 500 mg tablet take 1 tablet by oral route every 24 hours 09/02/2016 metformin 500 mg tablet take 1 tablet by oral route 2 times every day with morning and evening meals 01/27/2016 METOLAZONE 2.5 MG TABLET TAKE 1 TABLET BY MOUTH 1- 2 TIMES A WEEK Miralax 17 gram/dose oral powder take (17G) by oral route every day mixed with 8 oz. water, juice, soda, coffee or tea as needed 10/23/2016 Nitrostat Sublingual Tablet Sublingual 0.[address] 1 TAB UNDER TONGUE NEEDED FOR CHEST PAIN MAY REPEAT 2X EVERY 5 MIN IF NO RELIEF CALL 911 12/11/2015 Panl Ultra Test strips test blood sugar 2 to 3 times daily 09/02/2016 potassium chloride ER 10 mEq tablet,extended release(part/cryst) TAKE 1 TABLETS BY MOUTH 4TIMES A DAY 10/19/2016 ProAir HFA 90 mcg/actuation aerosol inhaler inhale 1 puff by inhalation route every 4 - 6 hours as needed 04/19/2016 spironolactone 25 mg tablet take 1 Tablet by oral route every day 10/19/2016 Ventolin HFA 90 mcg/actuation aerosol inhaler inhale 1 puff by inhalation route every 4 - 6 hours as needed 08/18/2016 verapamil ER (SR) 240 mg tablet,extended release takes 1 tablet by oral route every day with food 10/15/2016 warfarin 5 mg tablet take 1/2 tablet (2.5mg) daily PMH Prior MS Hx prostate CA s/p prostatectomy Hx aspiration pneumonia IDDM Reports: Asthma, COPD, Congestive heart failure, Coronary artery disease, Hypertension Surgical History Pacemaker Cardiac stenting CABG prostatectomy Family History Father, brother and sister with heart attack Social History Hx Alcohol Use: Yes (1 beer every other day) Hx Substance Use: No Hx Tobacco Use: No Smoking Status: Former Smoker Exam Vital Signs Vital Sign - Last Date Time Temp Pulse Resp B/P Pulse Ox O2 Delivery O2 Flow Rate FiO2 10/23/16 17:59 81 17 93/46 98 Nasal Cannula 1 10/23/16 16:16 36.4 Exam General: No acute distress, well-developed, well-nourished, appropriately interactive HEENT: Normocephalic, atraumatic. External ears without defect. Pupils equal, round, and reactive to light and accommodation. Anicteric sclerae, moist conjunctivae. Neck: Supple with full range of motion. No jugular venous distension. No bruits. No lymphadenopathy or thyromegaly. Cardiovascular: normal rate irregular rhythm with murmur best heard at RSB Pulmonary: Clear to auscultation bilaterally with no crackles, wheezes, or rhonchi. Normal respiratory effort with no use of accessory muscles. Abdomen: Bowel tones present. Soft, nontender, nondistended. No hepatosplenomegaly or masses appreciated. Extremities: No clubbing, cyanosis, edema, or lymphadenopathy appreciated. Skin: Chronic venous stasis in lower extremity. Warm. Neurological: Cranial nerves grossly intact. Normal muscle strength, tone, and bulk. Reflexes, coordination, and sensory function within normal limits. Psychiatric: Normal mood and affect. Alert and oriented to person, place, and time. Lab and Diagnostics Labs Item Value Date Time Troponin T < 0.010 ug/L 10/23/16 1630 Pro-B-Type Natriuretic Peptide 685.6 pg/mL H 10/23/16 1630 Alanine Aminotransferase (ALT/SGPT) 14 U/L 10/23/16 1630 Aspartate Amino Transf (AST/SGOT) 14 U/L 10/23/16 1630 Alkaline Phosphatase 113 U/L 10/23/16 1630 Magnesium Level 2.4 mg/dL 10/23/16 1630 Prothrombin Time 37.0 sec H 10/23/16 1630 Prothromb Time International Ratio 3.37 ratio 10/23/16 1630 Result Diagram: 10/23/16 1630 10/23/16 1630 X-Rays, CTs and MRIs PROCEDURE: X-RAY CHEST ONE VIEW, PORTABLE ([id number]) IMPRESSION: No acute cardiopulmonary disease. Dictated by: Dwayne Loza M.D. on 10/23/2016 at 17:16 12-lead ECG Atrial fibrillation Nonspecific intraventricular conduction delay Anterior infarct, old Heart rate 79 Assessment & Plan Eric Medeiros is an 86 year old male with a history of CHF, CAD s/p CABG 1993 and stent, COPD, hypertension, diabetes and atrial fibrillation on warfarin, who presents to the ED via EMS due to a near syncopal event. Presyncopal Episode, Present on Admission, active Likely secondary to orthostatic hypotension from dehydration. Other possibilties include hypoglycemia, arrythmia, aortic stenosis - IV fluids 100 mL/hr. Reassess fluid status during the day given history of CHF. - Monitor on Telemetry - Echocardiogram ordered - Hold Furosemide and Spironolactone, metolazone Acute on possible chronic kidney injury, present on admission, active. Baseline creatinine appears to be around 1-1.3. Currently 1.88 likely due to dehydration - IV fluids 100 mL/hr - Holding spironolactone - We will avoid nephrotoxic medications. - Repeat BMP COPD, present on admission, chronic. - Continue home inhalers including Advair and albuterol. - Supplemental oxygen as needed to maintain oxygen saturations between 88-92%. Coronary artery disease status post CABG and stenting in 2008, present on admission, chronic. Patient has been having neck pain with exertion. Negative Troponin in ED. Reported - Trending troponins 3. - Monitor on remote telemetry - Stress test ordered Atrial fibrillation, present on admission, chronic. EKG showed A. fib that was rate controlled at 79. - Hold verapimil until after stress test - Remote telemetry overnight. Congestive heart failure with reduced ejection fraction, present on admission, chronic. Most recent echo on 07/30/15 showed an EF of 45-50%. - Holding home furosemide and spironolactone due to acute kidney injury and likely dehydration. - Management as above Diabetes mellitus insulin using, present admission, chronic. HgA1c on 10/04/16 was 7.2 - Home metformin held. - Humalog (75/25) 34 units twice a day. Patient Status: Patient is admitted under inpatient status with expected length of stay greater than 2 midnights due to severity of presenting symptoms, risk of adverse event, and complexity of treatment plan. Code Status: DNR/DNI GI Prophylaxis: Not indicated VTE Prophylaxis: Theraputic Anticoag with Warfarin VTE Mechanical Devices: Intermittant Pneumatic CD Resuscitation Status: DNR/DNI:Do Not Resuscitate/Intubate Attending Statement The patient was seen and examined together with Dr. Cornell on 10/23 and I agree with the history, exam and plan as outlined in the note above. Nico Cornell DO Oct 23, 2016 19:25 Nico Grimaldo MD Oct 24, 2016 19:08
[2016-10-24] MEDS ORDERED: Glucose 40% Oral Gel 15 Gm Tube PO PRN (01:15)
[2016-10-24] MEDS ORDERED: Dextrose 10% 250 ML IV PRN (01:45)
--- NOTE | 2016-10-24 02:25 | PCM.CONPHA ---
Subjective Date of Service: Oct 24, 2016 Shortness of Breath, Near Syncopal Episode Reason for Pharmacy Consult: Anticoagulation Management Objective Vital Signs Date Time Temp Pulse Resp B/P Pulse Ox O2 Delivery O2 Flow Rate FiO2 10/24/16 00:41 36.4 67 16 105/61 98 Room Air 10/23/16 22:11 16 10/23/16 21:19 36.8 69 133/69 95 Room Air 10/23/16 20:46 73 27 90/45 92 Nasal Cannula 1 10/23/16 17:59 81 17 93/46 98 Nasal Cannula 1 10/23/16 16:16 36.4 79 24 104/42 98 Nasal Cannula 2 Weight (Kilograms): 83.900 Height (Feet): 5 Height (Inches): 10.00 Test 10/23/16 16:30 10/23/16 19:20 10/23/16 20:21 10/23/16 21:18 White Blood Count 12.3th/mm3 (3.8-10.1) Red Blood Count 4.86mil/mm3 (4.40-5.80) Hemoglobin 14.7g/dL (13.8-17.2) Hematocrit 43.6% (41.0-50.0) Mean Corpuscular Volume 89.7fL (81-100) Mean Corpuscular Hemoglobin 30.2pg (27.0-35.0) Mean Corpuscular Hemoglobin Concent 33.7% (32.0-37.0) Red Cell Distribution Width 14.3% (12.3-15.4) Platelet Count 314bil/L (150-400) Neutrophils (%) (Auto) 74.4% (40-74) Lymphocytes (%) (Auto) 12.6% (14-46) Monocytes (%) (Auto) 11.2% (4-12) Eosinophils (%) (Auto) 1.0% (0-5) Basophils (%) (Auto) 0.1% (0-3) Prothrombin Time 37.0sec (8.1-12.5) Prothromb Time International Ratio 3.37ratio Sodium Level 135mEq/L (134-144) Potassium Level 3.9mEq/L (3.5-5.2) Chloride Level 91mEq/L (97-108) Carbon Dioxide Level 24mmol/L (18-29) Blood Urea Nitrogen 66mg/dL (8-27) Creatinine 1.88mg/dL (0.76-1.27) Estimat Glomerular Filtration Rate 36mL/min (>59) Glucose Level 175mg/dL (60-99) Calcium Level 10.6mg/dL (8.5-10.1) Magnesium Level 2.4mg/dL (1.6-2.6) Total Bilirubin 0.3mg/dL (0.0-1.2) Aspartate Amino Transf (AST/SGOT) 14U/L (0-50) Alanine Aminotransferase (ALT/SGPT) 14U/L (0-44) Alkaline Phosphatase 113U/L (25-160) Pro-B-Type Natriuretic Peptide 685.6pg/mL (0-486) Total Protein 8.7g/dL (6.4-8.4) Albumin 3.8g/dL (3.4-5.0) Hold Urine Received (Received) Urine Color Yellow (YELLOW) Urine Appearance Clear (CLEAR,HAZY) Urine pH 5.5 (5.0-8.0) Urine Specific [place] 1.010 (1.003-1.035) Urine Protein Negativemg/dL (NEG,TRACE) Urine Glucose (UA) Negativemg/dL (NEGATIVE) Urine Ketones Negativemg/dL (NEGATIVE) Urine Occult Blood Negative (NEGATIVE) Urine Nitrite Negative (NEGATIVE) Urine Bilirubin Negative (NEGATIVE) Urine Urobilinogen Normalmg/dL (NORMAL) Urine Leukocyte Esterase Negative (NEGATIVE) Urine RBC 0-2/hpf (0-2) Urine WBC 0-5/hpf (0-5) Urine Epithelial Cells None/hpf (NONE-MOD) Urine Crystals None seen (NONE SEEN) Urine Bacteria None/hpf (NONE-FEW) Urine Hyaline Casts None/lpf (NONE) Urine Granular Casts None seen (NONE SEEN) Urine Waxy Casts None seen (NONE SEEN) Urine Red Blood Cell Casts None seen (NONE SEEN) Urine White Blood Cell Casts None seen (NONE SEEN) Urine Mucus None seen (None Seen) Urine Trichomonas None seen (NONE SEEN) Urine Yeast None (NONE SEEN) Urinalysis Comment None Urine Culture Reflexed Not indicated Troponin T 0.010ug/L (0.0-0.011) Assessment/Plan Assessment/Plan WARFARIN MANAGEMENT A\ 86YO M admitted for near syncope, CHF with a history of AFIB Current INR= 3.37 goal INR=2-3 HCT=43.6 Ztc=596 Home dose Warfarin 2.5mg po Daily pt reported that he had not taken Warfarin today Rn has noted no bleeding P\ INR elevated so will hold Warfarin tonight and check an INR with AM labs. Jorge Deal [facility] Oct 24, 2016 02:25
[2016-10-24 06:25] LABS: BASOPHILS % (AUTO) 0.1 % (0-3); EOSINOPHILS % (AUTO) 1.8 % (0-5); MONOCYTES % (AUTO) 12.4 % (4-12); Mean Corpuscular Hemoglobin 30.1 pg (27.0-35.0); Mean Corpuscular Volume 90.2 fL (81-100); NEUTROPHILS % (AUTO) 69.8 % (40-74); Platelet Count 260 bil/L (150-400)
[2016-10-24 07:27] LABS: INR 3.14 ratio
[2016-10-24] MEDS: Insulin LISPRO 300 Unit/3 mL Inj SUBQ SCH ×4 (07:55→21:16)
[2016-10-24] MEDS: Isosorbide Mononitrate 60 mg ER24 Tablet PO SCH (07:55)
[2016-10-24] MEDS: Fluticasone 0.05% 15 Spray/2 Gm 16 Gm Nasal Spray NASAL SCH ×2 (08:21→20:19)
[2016-10-24] MEDS: Fluticasone-Salmererol 250-50 Inhaler INHALATION SCH ×2 (08:22→20:18)
[2016-10-24] MEDS ORDERED: Phytonadione (Adult) 10 mg/1 mL Inj PO ONE (13:40)
--- NOTE | 2016-10-24 14:22 | CONS ---
[address] [address] CONSULTATION REPORT PATIENT: ZACH BURROWS : 1930 MR#: [id number] ADMIT: 10/23/2016 JOB ID: [id number] DATE OF SERVICE: 10/24/2016 CARDIOLOGY CONSULTATION: This patient is an 86-year-old gentleman that I have known for many years with a chronic history of ischemic heart disease, atrial fibrillation and pacemaker therapy, admitted with either orthostatic or vagal-mediated near syncope, weakness and a month long history of progressive anginal chest discomfort. I have been asked to assist with his evaluation. This patient has a long history of chronic ischemic heart disease presenting with an acute coronary syndrome in 1993. He underwent coronary angiography and balloon angioplasty at that time, but developed acute reocclusion following PTCA and therefore was taken directly to the operating room, and underwent a single-vessel saphenous vein bypass graft to the LAD. Patient subsequently did well until he presented in 2008 with recurrent symptoms. Coronary angiography was repeated and showed 90% proximal LAD stenosis with saphenous vein bypass graft to the LAD, showing an 80% stenosis at its origin. Primary stenting was performed to the LAD saphenous vein bypass graft with a 4 x 18 mm bare metal stent. Patient subsequently did well. Repeat coronary angiography was performed a year later by myself in April 2009 for symptoms of recurrent angina, three months after stopping Plavix therapy. The LAD showed a 90% proximal LAD stenosis before the first septal sample room supervisor. The LAD then was occluded after the takeoff of a small diagonal vessel. The LAD vein bypass graft showed a mild amount of proximal narrowing with 50% narrowing at the insertion site to the LAD. There was mild atherosclerotic disease with tubular calcific atherosclerosis in both the left circumflex and the right coronary artery without significant obstructive disease and the patient was treated medically. Over the years, he has not had recurrent anginal symptoms. He ultimately developed persistent chronic atrial fibrillation. He had a pacemaker placed in June 2009 due to sick sinus syndrome with pronounced sinus pauses on conversion from atrial fibrillation. Most recently, I saw him in the office in June of this year. He had symptoms of exertional fatigue and moderately severe exertional dyspnea related presumably to severe COPD. He did not have any complaints of anginal chest discomfort at that time. Baseline creatinine was stable with a serum creatinine of around 1.5. In recent months however, he has developed symptoms of progressive exertional dyspnea and more recently in the last month or so has had symptoms of functional class 3 exertional angina manifest predominantly by intrascapular back and posterior cervical neck pain with radiation into his chest, jaw and left arm. He only has to walk about 15 feet before he gets the discomfort which gradually resolves with rest and clearly represents fairly significant exertional angina. Because of these symptoms and an episode of probable orthostatic or mild vasovagal near syncope when he had his protime drawn, he was brought to the hospital and admitted. He has had no anginal chest discomfort while at rest in the hospital and his breathing seems to be reasonably well controlled. I spoke with the patient and his family and reviewed the fact that his anginal symptoms are concerning. I canceled his nuclear cardiac stress study earlier this morning since his clinical history was adequate to determine the need for diagnostic coronary angiography. The patient's protime this morning was 3.1 and 3.8 yesterday. In view of the fact that he has not had recurrent anginal symptoms in the hospital and his protime is elevated, I have recommended that we discontinue his Coumadin and when his INR is 1.5 or less, we can proceed with diagnostic coronary angiography. Also suggested hydration since there is some indication that he may have been mildly dehydrated on admission and we can watch his renal function closely and hope that it returns to his baseline of around 1.5. The patient is in the middle of getting an echocardiogram at this point in time, and with the family present I am planning to see him tomorrow and will complete his physical examination at that point. I have reviewed his chest x-rays which are fairly benign showing a dual chamber pacemaker with normal cardiac size and clear lung krueger. The rest of his lab work demonstrates mild hyperglycemia. His proBNP is probably within the normal range for a gentleman his age and with his renal function. Electrolytes are unremarkable. IMPRESSION AND PLAN: This patient has progressive functional class 3 angina which is new since I saw him in April and likely related to progressive ischemic heart disease. I will plan to see him again tomorrow and follow up with completion of the patient's physical examination and leave further recommendations but will plan diagnostic coronary angiography when his protime INR is less than 1.5 and renal function stable.
[2016-10-24] MEDS: 0.9% NaCl + KCl 20 mEq/L 1,000 ML IV SCH (14:50)
[2016-10-24] MEDS: Polyethylene Glycol (PEG) 17 Gm Powder PO PRN (14:50)
--- NOTE | 2016-10-24 17:03 | DRSVH ---
[facility] [address] [place] [address] Echocardiogram Report Name: ZACH BURROWS Study Date: 10/24/2016 Height: 70 in Hospital Exam Location: [facility] Weight: 18 4 lb Gender: Male BSA: 2.0 m2 : 1930 Age: 86 yrs BP: 102/65 mmHg Reason For Study: Syncope History: CABG, COPD, HTN, DM, AFIB Ordering Physician: HOSPITALIST [facility] Performed By: Rupal Reyes Referring Physician: Dr. Hina Cabrera Interpretation Summary The left ventricle is normal in size. The ejection fraction is estimated to be 45-50%. There is a moderate dyssynchronous contraction pattern due to the paced rhythm. The right ventricle is normal in size and function. The right ventricular systolic pressure is estimated at 36 mmHg assuming a right atrial pressure of 8 mm Hg. There is no significant valvular heart disease. No other echocardiographic abnormalities seen. Compared to the prior echo report on 07/30/2015, there is no significant change. Procedure: A two-dimensional transthoracic echocardiogram with color flow and Doppler was performed. The study quality was technically adequate. A contrast injection of Definity was performed to improve assessment of LV function. Comparison is made with the echocardiogram of 07/30/2015. The patient was in atrial fibrillation with heart rates between 63-81 bpm during the exam. Left Ventricle: The left ventricle is normal in size. There is normal left ventricular wall thickness. The ejection fraction is estimated to be 45-50%. There is a moderate dyssynchronous contraction pattern due to the paced rhythm. Diastolic function could not be accurately assessed due to atrial fibrillation. Right Ventricle: There is a pacemaker lead in the right ventricle. The right ventricle is normal in size and function. Atria: The left atrium is moderately dilated. Right atrial size is normal. There is no Doppler evidence for an interatrial shunt. Mitral Valve: The mitral valve leaflets are mildly calcified. There is mild mitral annular calcification. There is trace mitral regurgitation. Aortic Valve: The aortic valve is trileaflet. The aortic valve opens well. There is no aortic valve stenosis. No aortic regurgitation is present. Tricuspid Valve: There is mild tricuspid regurgitation. The right ventricular systolic pressure is estimated at 36 mmHg assuming a right atrial pressure of 8 mm Hg. Pulmonic Valve: The pulmonic valve is not well visualized. Great Vessels: The aortic root is normal size. The ascending aorta could not be visualized. The IVC is of normal diameter and collapses less than 50% with a sniff. This suggests a right atrial pressure of 8 mm Hg. Pericardium/ Pleura There is no pericardial effusion. MMode/2D Measurements & Calculations LVIDd: 5.2 cm RA long axis LVOT diam LVIDs: 4.2 cm LA A2 area: 25.8 cm FS: 19.0 % LA A4 area: 25.1 cm RA area Ao root diam EPSS: 0.70 cm LA length (vol): 6.2 cm IVSd: 0.87 cm LA vol: 88.3 ml : 14.9 cm Aortic Jxn LVPWd: 0.82 cm LA vol index RA vol: 34.1 ml : 3.1 cm RA : 43.8 ml/m2 : 16.9 mm2 LV cherry. diameter/BSA LV sys. diameter/BSA RVD1 (basal) RVD2 (mid) (cm/m^2): 2.6 (cm/m^2): 2.1 : 3.1 cm TAPSE: 1.6 cm Doppler Measurements & Calculations Ao V2 max MV E max octavio Med Peak E' Octavio TR max octavio : 101.0 cm/sec : 88.8 cm/sec : 263.5 cm/sec Ao max P.1 mmHg E/E' med: 9.2 TR max PG Ao mean P.4 mmHg Lat Peak E' Octavio : 27.8 mmHg LVOT Max Octavio PA V2 max : 75.5 cm/sec E/E' lat: 5.6 : 81.3 cm/sec CASTILLO(I,D): 2.4 cm E/e' average: 7.4 PA mean PG sev ratio: 0.70 : 0.93 mmHg PA Accel Time : 0.08 sec MV dec time: 0.14 sec Ao V2 mean LV V1 max PG PA V2 mean : 74.6 cm/sec : 42.9 cm/sec Ao V2 VTI LV V1 VTI: 14.0 cm CASTILLO(V,D): 2.6 cm2 CASTILLO indexed to BSA (cm^2/m^2): 1.2 Reading Physician:05:02 PM
[2016-10-24] MEDS: Verapamil SR 240 mg ER12 Tablet PO SCH (17:12)
--- NOTE | 2016-10-24 17:58 | NUR ---
Pain/activity/stress test Pt denies chest discomfort/pressure, SOB or N/V. 1 Per assist for urinal. Pt is weak and slightly unsteady on feet. Stress test cancelled this AM. Pt to be taken to ship laborer once anti-coagulation reversed. Vit K administered as ordered. Call light in reach, will continue to monitor.
--- NOTE | 2016-10-24 23:39 | PCM.PNMED ---
Subjective Date of Service Oct 24, 2016 Subjective The patient complains of disabling neck and shoulder pain with any exertion. He is otherwise in no distress sitting in a bedside chair. Exam Vital Signs Vital Sign - Last Date Time Temp Pulse Resp B/P Pulse Ox O2 Delivery O2 Flow Rate FiO2 10/24/16 23:29 36.6 58 16 106/67 98 Room Air 10/23/16 20:46 1 Intake and Output 10/23/16 10/23/16 10/24/16 Cumulative From/Thru 15:00 23:00 07:00 10/23/16 16:16 - 10/24/16 06:11 Intake Total 446 ml 446 ml Output Total 1125 ml 1125 ml Balance -679 ml -679 ml Intake Oral 0 ml 0 ml IV Total 446 ml 446 ml Output Urine Total 1125 ml 1125 ml Exam General: Patient is in no apparent distress sitting in bedside chair. He has no diaphoresis no fever and no chills. HEENT: Head is atraumatic and normocephalic. Eyes: Pupils are equally round and reactive to light and accommodation. Extraocular muscles are intact. Sclera are white, anicteric. Subconjunctival mucosa is pink. Ears and nose are unremarkable. Oropharynx: There is no mucosal lesions, there is no thrush, there is no pharyngitis. Neck: Is supple, there are no nodes, or masses or tenderness. Chest: Is clear to auscultation and percussion. There are no rales, rhonchi, wheezes or rubs. Heart: Rate, rhythm is regular. There is no new murmur, rub or gallop. Abdomen: Good bowel sounds are present. Abdomen is obese, soft, nontender, no organomegaly or masses were appreciated. Extremities: Are symmetrical and well perfused. There is no edema, there is no cellulitis. However, there is a significant amount of venous stasis dermatitis and skin discoloration bilaterally of the lower extremities. Neurologic: There are no focal neurological deficits. Cranial nerves II through XII are intact. There are no sensory or motor deficits. Psychiatric: Patients mood is calm and shows no sign of agitation. Genital: Deferred Rectal: Deferred Lab and Diagnostics Result Diagram: 10/24/16 0524 10/24/1624 X-Rays, CTs and MRIs PROCEDURE: X-RAY CHEST ONE VIEW, PORTABLE ([id number]) INDICATIONS: 86 year-old male with syncope. TECHNIQUE: One view of the chest was acquired. COMPARISON: [facility], CR, XR CHEST 1VW (PORTABLE), 10/19/2016, 18: 10. [facility], CR, XR CHEST 2VW, 10/15/2016, 12:29. [facility], CR, XR CHEST 1VW (PORTABLE), 10/05/2016, 4:16. 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 Patient is status post median sternotomy. Lungs and pleura: No pleural effusions or pneumothorax. Lungs are clear. Mediastinum: Mediastinal contours appear normal. Heart size is normal. There is aortic atherosclerosis. Bones and chest wall: No suspicious bony lesions. Overlying soft tissues appear unremarkable. IMPRESSION: No acute cardiopulmonary disease. Dictated by: Dwayne Loza M.D. on 10/23/2016 at 17:16 Approved by: Dwayne Loza M.D. on 10/23/2016 at 17:17 12-lead ECG Atrial fibrillation Nonspecific intraventricular conduction delay Anterior infarct, old Heart rate 79 Cardiac Echo Impressions Echocardiogram Report Name: ZACH MEDEIROS Study Date: 10/24/2016 Height: 70 in Hospital Exam Location: [facility] Weight: 18 4 lb Gender: Male BSA: 2.0 m2 : 1930 Age: 86 yrs BP: 102/65 mmHg Reason For Study: Syncope History: CABG, COPD, HTN, DM, AFIB Ordering Physician: HOSPITALIST [facility] Performed By: Rupal Reyes Referring Physician: Dr. Hina Cabrera Interpretation Summary The left ventricle is normal in size. The ejection fraction is estimated to be 45-50%. There is a moderate dyssynchronous contraction pattern due to the paced rhythm. The right ventricle is normal in size and function. The right ventricular systolic pressure is estimated at 36 mmHg assuming a right atrial pressure of 8 mm Hg. There is no significant valvular heart disease. No other echocardiographic abnormalities seen. Compared to the prior echo report on 07/30/2015, there is no significant change. Assessment & Plan Zach Medeiros is an 86 year old male with a history of CHF, CAD s/p CABG 1993 and stent, COPD, hypertension, diabetes and atrial fibrillation on warfarin, who presents to the ED via EMS due to a near syncopal event. Presyncopal Episode, Present on Admission, active Likely secondary to orthostatic hypotension from dehydration. Other possibilties include hypoglycemia, arrythmia, aortic stenosis - IV fluids 100 mL/hr. Reassess fluid status during the day given history of CHF. - Monitor on Telemetry - Echocardiogram ordered - Hold Furosemide and Spironolactone, metolazone Acute on possible chronic kidney injury, present on admission, active. Baseline creatinine appears to be around 1-1.3. Currently 1.88 likely due to dehydration - IV fluids to continue will change normal saline to normal saline with 20 mEq of potassium chloride at 80 mL an hour. - And 2 new Holding spironolactone - We will avoid nephrotoxic medications. - Repeat BMP COPD, present on admission, chronic. - Continue home inhalers including Advair and albuterol. - Supplemental oxygen as needed to maintain oxygen saturations between 88-92%. Coronary artery disease status post CABG and stenting in 2008, present on admission, chronic. Patient has been having neck pain with exertion. Negative Troponin in ED. Reported - Trending troponins 3. - Monitor on remote telemetry - Stress test ordered and Dr. Thompson recommends that the patient go directly to the cardiac catheterization lab due to the above history. He recommends discontinuing the Coumadin and giving vitamin K as patient should not have the cardiac catheterization until his INR is 1.5 or below. Atrial fibrillation, present on admission, chronic. EKG showed A. fib that was rate controlled at 79. - Continue verapamil - Remote telemetry to continue - We will discontinue Coumadin for now in preparation for cardiac catheterization. Congestive heart failure with reduced ejection fraction, present on admission, chronic. Most recent echo on 07/30/15 showed an EF of 45-50%. - Holding home furosemide and spironolactone due to acute kidney injury and likely dehydration. - Management as above Diabetes mellitus insulin using, present admission, chronic. HgA1c on 10/04/16 was 7.2 - Home metformin held. - Humalog (75/25) 34 units twice a day. Patient Status: Patient is likely to be admitted for several days in preparation for recurrent coronary artery catheterization which would include maintaining INR at 1.5 or less and improving kidney function with IV fluids. I have discussed case with Dr. Thompson and appreciate his time and expertise. Code Status: DNR/DNI Pain Evaluation: Adequate Pain Control GI Prophylaxis: Not indicated VTE Prophylaxis: Theraputic Anticoag with Warfarin VTE Mechanical Devices: Intermittant Pneumatic CD Resuscitation Status: DNR/DNI:Do Not Resuscitate/Intubate Yoel Rondon MD Oct 24, 2016 23:39
[2016-10-25] VITALS (9 sets, daily range): BP systolic 90–118; BP diastolic 53–66; PULSE 60–88; RESP 16–18; O2SAT 99–100
[2016-10-25] MEDS: 0.9% NaCl + KCl 20 mEq/L 1,000 ML IV SCH ×2 (03:11→16:59)
--- NOTE | 2016-10-25 04:16 | NUR ---
PT ACTIVITY Pt has been more active/ambulatory during shift. Pt has wanted to change from chair, to couch, and then to bed for the night. Pt up w/ 1 person assist w/ FWW. Pt continues to be generally weak, very slight improvement from admit night. Pt has not c/o pain in back or shoulders tonight. Continue to monitor. Call light in reach. Bed alarm on. Intentional rounding.
[2016-10-25 06:31] LABS: BASOPHILS % (AUTO) 0.2 % (0-3); EOSINOPHILS % (AUTO) 2.4 % (0-5); MONOCYTES % (AUTO) 10.3 % (4-12); Mean Corpuscular Hemoglobin 30.4 pg (27.0-35.0); Mean Corpuscular Volume 91.1 fL (81-100); NEUTROPHILS % (AUTO) 71.6 % (40-74); Platelet Count 261 bil/L (150-400)
[2016-10-25 06:56] LABS: TROPONIN T 0.01 ug/L (0.0-0.011)
[2016-10-25 07:07] LABS: Magnesium 2.1 mg/dL (1.6-2.6)
[2016-10-25 07:24] LABS: INR 1.62 ratio
[2016-10-25] MEDS: Fluticasone-Salmererol 250-50 Inhaler INHALATION SCH ×2 (08:01→20:08)
[2016-10-25] MEDS: Insulin LISPRO 300 Unit/3 mL Inj SUBQ SCH ×4 (08:01→21:34)
[2016-10-25] MEDS: Isosorbide Mononitrate 60 mg ER24 Tablet PO SCH ×2 (08:01→08:30)
[2016-10-25] MEDS: Fluticasone 0.05% 15 Spray/2 Gm 16 Gm Nasal Spray NASAL SCH ×2 (08:01→20:08)
[2016-10-25] MEDS: Polyethylene Glycol (PEG) 17 Gm Powder PO PRN (08:02)
--- NOTE | 2016-10-25 09:20 | NUR ---
CANDY signed. MORGAN Colin
--- NOTE | 2016-10-25 13:32 | NUR ---
Social Work-initial assessment: Data:See initial assessment. Pt is a 86 y/o male who was admitted on 10/23/16 for CHF per H&P. Pt's insurance is [employer] and PCP is Hina Cabrera MD. EMR Reviewed. SW met with pt at bedside, SW role explained. Pt is alert and oriented x3. Pt resides at home with his in where he remains independent with ADLS. Pt drives and does use a fww at baseline. Pt has no HH or SNF history. 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 SW discussed DPOA/ advanced directive, pt confirms he has completed this, SW encouraged a copy to be brought in. 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 Pt has been up independent in his room. SW provided pt with a copy of the discharge planning checklist booklet and encouraged pt to call with any questions, phone number provided. pt's to provide transport home. No anticipated discharge needs. SW will continue to follow if needs arise. Assessment:pt who is independent at baseline. Plan:Pt to discharge home when medically stable via pOV. No anticipated discharge needs. SW will continue to follow if needs arise. MORGAN Colin Addendum: 10/25/16 at 1334 by JOSE FRANCISCO OLPEZ Amended: Links added.
[2016-10-25] MEDS: Verapamil SR 240 mg ER12 Tablet PO SCH (16:55)
--- NOTE | 2016-10-25 17:00 | NUR ---
Hypotension B/P has been in the 90/50s through out the day, Imdur was held this AM. MD made aware. Instructions given to administer, if B/P vinnie above 100/60. B/P continues to be low, Verapamil held, MD aware. No new orders received at this time. Call light in reach, will continue to monitor
--- NOTE | 2016-10-25 22:07 | PCM.PNMED ---
Subjective Date of Service Oct 25, 2016 Subjective The patient remains in very good spirits. At rest he has no neck pain or shoulder pain or chest pain. He has no new complaints. Exam Vital Signs Vital Sign - Last Date Time Temp Pulse Resp B/P Pulse Ox O2 Delivery O2 Flow Rate FiO2 10/25/16 20:27 36.4 68 16 101/63 99 Room Air 10/23/16 20:46 1 Intake and Output 10/24/16 10/24/16 10/25/16 Cumulative From/Thru 15:00 23:00 07:00 10/23/16 16:16 - 10/25/16 06:19 Intake Total 1891 ml 1420 ml 3757 ml Output Total 1325 ml 900 ml 3350 ml Balance 566 ml 520 ml 407 ml Intake Oral 936 ml 600 ml 1536 ml IV Total 955 ml 820 ml 2221 ml Output Urine Total 1325 ml 900 ml 3350 ml # Voids 3 3 Exam General: Patient is in no apparent distress laying supine in bed. He has no diaphoresis no fever and no chills. HEENT: Head is atraumatic and normocephalic. Eyes: Pupils are equally round and reactive to light and accommodation. Extraocular muscles are intact. Sclera are white, anicteric. Subconjunctival mucosa is pink. Ears and nose are unremarkable. Oropharynx: There is no mucosal lesions, there is no thrush, there is no pharyngitis. Neck: Is supple, there are no nodes, or masses or tenderness. Chest: Is clear to auscultation and percussion. There are no rales, rhonchi, wheezes or rubs. Heart: Rate, rhythm is regular. There is no new murmur, rub or gallop. Abdomen: Good bowel sounds are present. Abdomen is obese, soft, nontender, no organomegaly or masses were appreciated. Extremities: Are symmetrical and well perfused. There is no edema, there is no cellulitis. However, there is a significant amount of venous stasis dermatitis and skin discoloration bilaterally of the lower extremities. Neurologic: There are no focal neurological deficits. Cranial nerves II through XII are intact. There are no sensory or motor deficits. Psychiatric: Patients mood is calm and shows no sign of agitation. Genital: Deferred Rectal: Deferred Lab and Diagnostics Result Diagram: 10/25/16 0610 10/25/16 0610 X-Rays, CTs and MRIs PROCEDURE: X-RAY CHEST ONE VIEW, PORTABLE ([id number]) INDICATIONS: 86 year-old male with syncope. TECHNIQUE: One view of the chest was acquired. COMPARISON: [facility], CR, XR CHEST 1VW (PORTABLE), 10/19/2016, 18: 10. [facility], CR, XR CHEST 2VW, 10/15/2016, 12:29. [facility], CR, XR CHEST 1VW (PORTABLE), 10/05/2016, 4:16. 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 Patient is status post median sternotomy. Lungs and pleura: No pleural effusions or pneumothorax. Lungs are clear. Mediastinum: Mediastinal contours appear normal. Heart size is normal. There is aortic atherosclerosis. Bones and chest wall: No suspicious bony lesions. Overlying soft tissues appear unremarkable. IMPRESSION: No acute cardiopulmonary disease. Dictated by: Dwayne oLza M.D. on 10/23/2016 at 17:16 Approved by: Dwayne Loza M.D. on 10/23/2016 at 17:17 12-lead ECG Atrial fibrillation Nonspecific intraventricular conduction delay Anterior infarct, old Heart rate 79 Cardiac Echo Impressions Echocardiogram Report Name: ZACH MEDEIROS Study Date: 10/24/2016 Height: 70 in Hospital Exam Location: [facility] Weight: 18 4 lb Gender: Male BSA: 2.0 m2 : 1930 Age: 86 yrs BP: 102/65 mmHg Reason For Study: Syncope History: CABG, COPD, HTN, DM, AFIB Ordering Physician: HOSPITALIST [facility] Performed By: Rupal Reyes Referring Physician: Dr. Hina Cabrera Interpretation Summary The left ventricle is normal in size. The ejection fraction is estimated to be 45-50%. There is a moderate dyssynchronous contraction pattern due to the paced rhythm. The right ventricle is normal in size and function. The right ventricular systolic pressure is estimated at 36 mmHg assuming a right atrial pressure of 8 mm Hg. There is no significant valvular heart disease. No other echocardiographic abnormalities seen. Compared to the prior echo report on 07/30/2015, there is no significant change. Assessment & Plan Zach Medeiros is an 86 year old male with a history of CHF, CAD s/p CABG 1993 and stent, COPD, hypertension, diabetes and atrial fibrillation on warfarin, who presents to the ED via EMS due to a near syncopal event. Presyncopal Episode, Present on Admission, active Likely secondary to orthostatic hypotension from dehydration. Other possibilties include hypoglycemia, arrythmia, aortic stenosis - We will continue IV fluids. Reassess fluid status during the day given history of CHF. - Monitor on Telemetry - Echocardiogram ordered - Hold Furosemide and Spironolactone, metolazone Acute on possible chronic kidney injury, present on admission, active. Baseline creatinine appears to be around 1-1.3. Improved from 1.88 21.25 today , likely due to dehydration - IV fluids to continue will change normal saline to normal saline with 20 mEq of potassium chloride at 80 mL an hour. - And 2 new Holding spironolactone - We will avoid nephrotoxic medications. - Repeat serial BMPs COPD, present on admission, chronic. - Continue home inhalers including Advair and albuterol. - Supplemental oxygen as needed to maintain oxygen saturations between 88-92%. Coronary artery disease status post CABG and stenting in 2008, present on admission, chronic. Patient has been having neck pain with exertion. Negative Troponin in ED. Reported - Trending troponins 3. - Monitor on remote telemetry - Stress test ordered and Dr. Thompson recommends that the patient go directly to the cardiac catheterization lab due to the above history. He recommends discontinuing the Coumadin and giving vitamin K as patient should not have the cardiac catheterization until his INR is 1.5 or below. Atrial fibrillation, present on admission, chronic. EKG showed A. fib that was rate controlled at 79. - Continue verapamil - Remote telemetry to continue - We will discontinue Coumadin for now in preparation for cardiac catheterization. Congestive heart failure with reduced ejection fraction, present on admission, chronic. Most recent echo on 07/30/15 showed an EF of 45-50%. - Holding home furosemide and spironolactone due to acute kidney injury and likely dehydration. - Management as above Diabetes mellitus insulin using, present admission, chronic. HgA1c on 10/04/16 was 7.2 - Home metformin held. - Humalog (75/25) 34 units twice a day. Patient Status: Patient is likely to be admitted for several days in preparation for recurrent coronary artery catheterization which would include maintaining INR at 1.5 or less and improving kidney function with IV fluids. I have discussed case with Dr. Thompson and appreciate his time and expertise. Code Status: DNR/DNI Pain Evaluation: Adequate Pain Control GI Prophylaxis: Not indicated VTE Prophylaxis: Theraputic Anticoag with Warfarin VTE Mechanical Devices: Intermittant Pneumatic CD Resuscitation Status: DNR/DNI:Do Not Resuscitate/Intubate Yoel Rondon MD Oct 25, 2016 22:07
[2016-10-26] VITALS (7 sets, daily range): BP systolic 97–133; BP diastolic 58–72; PULSE 63–78; RESP 18; O2SAT 97–100
--- NOTE | 2016-10-26 05:26 | NUR ---
Uneventful Night Pt denies any pain or chest pressure or nausea,vomiting. Breathing comfortably at rest,some SOB on exertions, mild generalized weakness, denies dizziness, vertigo when get up. Some fine crackles at bilateral posterior LLs, no wheezes. Tele: a-flutter or a-fib 60s-70s, V-paced, occasional PVCs. Trace edema at bilateral LEs. Pt able to lying down about 15 degree to sleep. With oral and IV hydration, BP improved from 101/63 to 133/72. Pt is kept NPO after MN for possible heart cath today.
[2016-10-26] MEDS: 0.9% NaCl + KCl 20 mEq/L 1,000 ML IV SCH (05:53)
[2016-10-26 06:33] LABS: Magnesium 1.9 mg/dL (1.6-2.6)
[2016-10-26 06:37] LABS: BASOPHILS % (AUTO) 0.2 % (0-3); EOSINOPHILS % (AUTO) 2.8 % (0-5); MONOCYTES % (AUTO) 11.4 % (4-12); Mean Corpuscular Hemoglobin 29.8 pg (27.0-35.0); Mean Corpuscular Volume 90.4 fL (81-100); Platelet Count 221 bil/L (150-400)
[2016-10-26 07:29] LABS: INR 1.2 ratio
[2016-10-26] MEDS: Fluticasone 0.05% 15 Spray/2 Gm 16 Gm Nasal Spray NASAL SCH ×2 (08:58→20:43)
[2016-10-26] MEDS: Fluticasone-Salmererol 250-50 Inhaler INHALATION SCH ×2 (08:58→20:43)
[2016-10-26] MEDS: Insulin LISPRO 300 Unit/3 mL Inj SUBQ SCH ×4 (08:59→20:54)
[2016-10-26] MEDS: Isosorbide Mononitrate 60 mg ER24 Tablet PO SCH (08:59)
[2016-10-26] MEDS ORDERED: Heparin 5,000 Unit/mL Inj IVPUSH PRN (11:45)
[2016-10-26] MEDS ORDERED: Heparin 25K Unit/500mL 0.45 NS 25,000 UNIT in IV Premix 1 EACH IV SCH (11:45)
--- NOTE | 2016-10-26 13:00 | NUR ---
Heparin gtt Cardiac heparin gtt initiated, stat PTT ordered prior to start, Pt and family educated regarding need for gtt. Call light in place. Will continue to monitor,
[2016-10-26] MEDS: Verapamil SR 240 mg ER12 Tablet PO SCH (17:25)
--- NOTE | 2016-10-26 17:28 | PROG NOTE ---
[address] [address] PROGRESS NOTE PATIENT: ZACH BURROWS : 1930 MR#: [id number] ADMIT: 10/23/2016 JOB ID: [id number] DATE: 10/26/2016 CHIEF COMPLAINT: Worsening shortness of breath and chest pain. SUBJECTIVE: The patient is a delightful, 86-year-old man accompanied by his and multiple family members. He reports feeling shortness of breath and fatigue for the past two years. He suffered a near syncopal episode after a blood draw and then review of systems indicated exertional pressure in his shoulders and posterior neck concerning for angina. Right now, the patient is pain-free. He underwent echocardiography which showed cardiomyopathy, EF of 45-50%. The troponins have been negative so far. His INR is safe enough for us to obtain cardiac catheterization and, basically, I reported to the bedside to discuss risks, benefits and alternatives of invasive workup. PHYSICAL EXAMINATION: Vital signs: Temperature 36.3, blood pressure 97/58 up to 133/72, pulse 63 up to 78 beats per minute. Patient is exclusively in atrial fibrillation with rare ventricular pacing. He is satting at 98% to 100% on room air. Very pleasant, elderly man in no apparent distress, eating lunch. Eyes: No scleral icterus. Neck is supple. No carotid bruits. Heart showed normal S1 and S2. A 1/6 systolic ejection murmur at right upper sternal border. Lungs clear at bases bilaterally. Abdomen is soft, positive bowel sounds. No hepatosplenomegaly. Extremities: Warm, well perfused. No clubbing, cyanosis, or edema. Skin: No rashes or lesions. LABORATORIES: Reviewed. His CBC is normal. Today, his creatinine is 0.9. His albumin is a little low at 2.9. INR is 1.2. Urinalysis is reassuring. So far, his workup included chest x-ray and echo that showed ejection fraction of 45-50%. Dyssynchrony due to V pacing and no significant valvular disease. I also looked at this patient's most recent cardiac catheterization. It was performed most recently in April 2009. Left main is a normal vessel that gives rise to LAD and the circumflex. LAD has serial lesions. There is a 50% proximal lesion, 80% slightly more distal lesion, but proximal to the first septal anger control counselor. Then, after that, the LAD appears to have competitive flow and is fed via the vein graft. Circumflex gives rise to a big first OM, big 2nd OM, and a medium third OM. No obstructive lesions in that vessel are visualized. Right coronary artery is a dominant vessel. It gives rise to PDA and posterolateral branch. It had about 40% proximal lesion. The vein graft to LAD was accessed via conventional JR4 catheter. It was best appreciated in SPANISH 30 view. It touches down onto the LAD. The previously deployed proximal stent is patent, but there is about 50% stenosis at the anastomosis site. The LAD fills retrograde, so the way it looks actually we could potentially, if needed, offer the patient stenting of a protected LAD if the vein graft shows evidence of failure on upcoming angiogram. There is a ring marker, but it is actually about an inch superior to the ostium of the vein graft. The best view was actually a cross-table lateral view that really highlighted the patent stent and some challenges at the anastomosis site. ASSESSMENT AND PLAN: In summary, this is a delightful, 86-year-old man with progressive shortness of breath and now exertional angina manifesting as bilateral shoulder pain and posterior neck pain with negative troponins and reassuring EKG. We discussed the next step which would involve invasive workup given classic anginal symptoms. The patient agrees to proceed. His most recent noninvasive evaluation was performed in 2011, and at that time it showed large severe fixed apical perfusion defect. Consent obtained. All questions answered. Thank you very much for the opportunity to evaluate him.
[2016-10-27] VITALS (18 sets, daily range): BP systolic 85–123; BP diastolic 38–82; PULSE 65–78; RESP 14–24; O2SAT 95–100
--- NOTE | 2016-10-27 01:22 | PCM.PNMED ---
Subjective Date of Service Oct 27, 2016 Subjective The patient has no new complaints while sitting at rest. However, with any exertion he has disabling pain in his neck and shoulder. Exam Vital Signs Vital Sign - Last Date Time Temp Pulse Resp B/P Pulse Ox O2 Delivery O2 Flow Rate FiO2 10/27/16 00:35 36.8 76 18 112/68 99 Room Air 10/23/16 20:46 1 Intake and Output 10/26/16 10/26/16 10/27/16 Cumulative From/Thru 15:00 23:00 07:00 10/23/16 16:16 - 10/26/16 20:54 Intake Total 1269 ml 9205 ml Output Total 400 ml 6000 ml Balance 869 ml 3205 ml Intake Oral 1120 ml 4336 ml IV Total 149 ml 4869 ml Output Urine Total 400 ml 6000 ml # Voids 1 4 # Bowel Movements 0 0 Exam General: Patient is in no apparent distress laying supine in bed. He has no diaphoresis no fever and no chills. HEENT: Head is atraumatic and normocephalic. Eyes: Pupils are equally round and reactive to light and accommodation. Extraocular muscles are intact. Sclera are white, anicteric. Subconjunctival mucosa is pink. Ears and nose are unremarkable. Oropharynx: There is no mucosal lesions, there is no thrush, there is no pharyngitis. Neck: Is supple, there are no nodes, or masses or tenderness. Chest: Is clear to auscultation and percussion. There are no rales, rhonchi, wheezes or rubs. Heart: Rate, rhythm is regular. There is no new murmur, rub or gallop. Abdomen: Good bowel sounds are present. Abdomen is obese, soft, nontender, no organomegaly or masses were appreciated. Extremities: Are symmetrical and well perfused. There is no edema, there is no cellulitis. However, there is a significant amount of venous stasis dermatitis and skin discoloration bilaterally of the lower extremities. Neurologic: There are no focal neurological deficits. Cranial nerves II through XII are intact. There are no sensory or motor deficits. Psychiatric: Patients mood is calm and shows no sign of agitation. Genital: Deferred Rectal: Deferred Lab and Diagnostics Result Diagram: 10/26/16 0550 10/26/16 0550 X-Rays, CTs and MRIs PROCEDURE: X-RAY CHEST ONE VIEW, PORTABLE ([id number]) INDICATIONS: 86 year-old male with syncope. TECHNIQUE: One view of the chest was acquired. COMPARISON: [facility], CR, XR CHEST 1VW (PORTABLE), 10/19/2016, 18: 10. [facility], CR, XR CHEST 2VW, 10/15/2016, 12:29. [facility], CR, XR CHEST 1VW (PORTABLE), 10/05/2016, 4:16. 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 Patient is status post median sternotomy. Lungs and pleura: No pleural effusions or pneumothorax. Lungs are clear. Mediastinum: Mediastinal contours appear normal. Heart size is normal. There is aortic atherosclerosis. Bones and chest wall: No suspicious bony lesions. Overlying soft tissues appear unremarkable. IMPRESSION: No acute cardiopulmonary disease. Dictated by: Dwayne Loza M.D. on 10/23/2016 at 17:16 Approved by: Dwayne Loza M.D. on 10/23/2016 at 17:17 12-lead ECG Atrial fibrillation Nonspecific intraventricular conduction delay Anterior infarct, old Heart rate 79 Cardiac Echo Impressions Echocardiogram Report Name: ZACH MEDEIROS Study Date: 10/24/2016 Height: 70 in Hospital Exam Location: [facility] Weight: 18 4 lb Gender: Male BSA: 2.0 m2 : 1930 Age: 86 yrs BP: 102/65 mmHg Reason For Study: Syncope History: CABG, COPD, HTN, DM, AFIB Ordering Physician: HOSPITALIST [facility] Performed By: Rupal Reyes Referring Physician: Dr. Hina Cabrera Interpretation Summary The left ventricle is normal in size. The ejection fraction is estimated to be 45-50%. There is a moderate dyssynchronous contraction pattern due to the paced rhythm. The right ventricle is normal in size and function. The right ventricular systolic pressure is estimated at 36 mmHg assuming a right atrial pressure of 8 mm Hg. There is no significant valvular heart disease. No other echocardiographic abnormalities seen. Compared to the prior echo report on 07/30/2015, there is no significant change. Assessment & Plan Zach Medeiros is an 86 year old male with a history of CHF, CAD s/p CABG 1993 and stent, COPD, hypertension, diabetes and atrial fibrillation on warfarin, who presents to the ED via EMS due to a near syncopal event. Presyncopal Episode, Present on Admission, active Likely secondary to orthostatic hypotension from dehydration. Other possibilties include hypoglycemia, arrythmia, aortic stenosis - We will discontinue IV fluids to avoid fluid overload. - Monitor on Telemetry - Echocardiogram ordered - Hold Furosemide and Spironolactone, metolazone until after cardiac catheterization. We will then likely need to restart. Acute on possible chronic kidney injury, present on admission, active. Baseline creatinine appears to be around 1-1.3. Improved from 1.88 to 0.85 today, likely due to dehydration - IV fluids given until today and will discontinue to avoid fluid overload. - Continue holding spironolactone for now - We will avoid nephrotoxic medications. - Repeat serial BMPs COPD, present on admission, chronic. - Continue home inhalers including Advair and albuterol. - Supplemental oxygen as needed to maintain oxygen saturations between 88-92%. Coronary artery disease status post CABG and stenting in 2008, present on admission, chronic. Patient has been having neck pain with exertion. Negative Troponin in ED. Reported - Trending troponins 3. - Monitor on remote telemetry - Discussed with Dr. Spencer and patient will go to the cardiac catheterization lab tomorrow at 11 AM. Atrial fibrillation, present on admission, chronic. EKG showed A. fib that was rate controlled at 79. - Continue verapamil - Remote telemetry to continue - We have discontinued Coumadin for now in preparation for cardiac catheterization. - IV heparin drip for bridging therapy started. Congestive heart failure with reduced ejection fraction, present on admission, chronic. Most recent echo on 07/30/15 showed an EF of 45-50%. - Holding home furosemide and spironolactone due to acute kidney injury and likely dehydration. - Management as above Diabetes mellitus insulin using, present admission, chronic. HgA1c on 10/04/16 was 7.2 - Home metformin held. - Humalog (75/25) 34 units twice a day. Patient Status: Patient is likely to be admitted for several days in preparation for coronary artery catheterization which would include maintaining INR at 1.5 or less and improving kidney function with IV fluids. I have discussed case with Dr. Thompson and Dr. Spencer. We appreciate their time and expertise. Code Status: DNR/DNI Pain Evaluation: Adequate Pain Control GI Prophylaxis: Not indicated VTE Prophylaxis: Theraputic Anticoag with Warfarin VTE Mechanical Devices: Intermittant Pneumatic CD Resuscitation Status: DNR/DNI:Do Not Resuscitate/Intubate Yoel Rondon MD Oct 27, 2016 01:22
[2016-10-27 06:03] LABS: BASOPHILS % (AUTO) 0.2 % (0-3); EOSINOPHILS % (AUTO) 3.8 % (0-5); MONOCYTES % (AUTO) 9.6 % (4-12); Mean Corpuscular Hemoglobin 30.1 pg (27.0-35.0); NEUTROPHILS % (AUTO) 70.6 % (40-74); Platelet Count 210 bil/L (150-400)
[2016-10-27 06:43] LABS: INR 1.15 ratio
[2016-10-27 06:47] LABS: Magnesium 1.9 mg/dL (1.6-2.6)
[2016-10-27] MEDS: Insulin LISPRO 300 Unit/3 mL Inj SUBQ SCH ×4 (07:41→22:16)
[2016-10-27] MEDS: Fluticasone 0.05% 15 Spray/2 Gm 16 Gm Nasal Spray NASAL SCH ×2 (07:43→22:05)
[2016-10-27] MEDS: Fluticasone-Salmererol 250-50 Inhaler INHALATION SCH ×2 (07:43→22:05)
[2016-10-27] MEDS: Isosorbide Mononitrate 60 mg ER24 Tablet PO SCH (07:43)
[2016-10-27] MEDS ORDERED: 0.9% Sodium Chloride 1,000 ML IV ONE (08:40)
--- NOTE | 2016-10-27 08:53 | PCM.PNMED ---
Subjective Date of Service Oct 27, 2016 Subjective Patient seen and examined today. Shoulder pain still present, denies chest pain. Vitals stable. Exam Vital Signs Vital Sign - Last Date Time Temp Pulse Resp B/P Pulse Ox O2 Delivery O2 Flow Rate FiO2 10/27/16 08:42 36.7 71 20 108/66 95 Room Air 10/23/16 20:46 1 Intake and Output 10/26/16 10/26/16 10/27/16 Cumulative From/Thru 15:00 23:00 07:00 10/23/16 16:16 - 10/27/16 06:26 Intake Total 1269 ml 345 ml 9550 ml Output Total 400 ml 800 ml 6800 ml Balance 869 ml -455 ml 2750 ml Intake Oral 1120 ml 100 ml 4436 ml IV Total 149 ml 245 ml 5114 ml Output Urine Total 400 ml 800 ml 6800 ml # Voids 1 4 # Bowel Movements 0 0 Exam General: Patient is in no apparent distress laying supine in bed. He has no diaphoresis no fever and no chills. Neck: Is supple, there are no nodes, or masses or tenderness. Chest: Is clear to auscultation and percussion. There are no rales, rhonchi, wheezes or rubs. Heart: Rate, rhythm is regular. There is no new murmur, rub or gallop. Abdomen: Good bowel sounds are present. Abdomen is obese, soft, nontender, no organomegaly or masses were appreciated. Extremities: Are symmetrical and well perfused. There is no edema, there is no cellulitis. However, there is a significant amount of venous stasis dermatitis and skin discoloration bilaterally of the lower extremities. Neurologic: There are no focal neurological deficits. Cranial nerves II through XII are intact. There are no sensory or motor deficits. Psychiatric: Patients mood is calm and shows no sign of agitation. Lab and Diagnostics Result Diagram: 10/27/16 0545 10/27/16 0545 X-Rays, CTs and MRIs PROCEDURE: X-RAY CHEST ONE VIEW, PORTABLE ([id number]) INDICATIONS: 86 year-old male with syncope. TECHNIQUE: One view of the chest was acquired. COMPARISON: [facility], CR, XR CHEST 1VW (PORTABLE), 10/19/2016, 18: 10. [facility], CR, XR CHEST 2VW, 10/15/2016, 12:29. [facility], CR, XR CHEST 1VW (PORTABLE), 10/05/2016, 4:16. 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 Patient is status post median sternotomy. Lungs and pleura: No pleural effusions or pneumothorax. Lungs are clear. Mediastinum: Mediastinal contours appear normal. Heart size is normal. There is aortic atherosclerosis. Bones and chest wall: No suspicious bony lesions. Overlying soft tissues appear unremarkable. IMPRESSION: No acute cardiopulmonary disease. Dictated by: Dwayne Loza M.D. on 10/23/2016 at 17:16 Approved by: Dwayne Loza M.D. on 10/23/2016 at 17:17 12-lead ECG Atrial fibrillation Nonspecific intraventricular conduction delay Anterior infarct, old Heart rate 79 Cardiac Echo Impressions Echocardiogram Report Name: ZACH MEDEIROS Study Date: 10/24/2016 Height: 70 in Hospital Exam Location: [facility] Weight: 18 4 lb Gender: Male BSA: 2.0 m2 : 1930 Age: 86 yrs BP: 102/65 mmHg Reason For Study: Syncope History: CABG, COPD, HTN, DM, AFIB Ordering Physician: HOSPITALIST [facility] Performed By: Rupal Reyes Referring Physician: Dr. Hina Cabrera Interpretation Summary The left ventricle is normal in size. The ejection fraction is estimated to be 45-50%. There is a moderate dyssynchronous contraction pattern due to the paced rhythm. The right ventricle is normal in size and function. The right ventricular systolic pressure is estimated at 36 mmHg assuming a right atrial pressure of 8 mm Hg. There is no significant valvular heart disease. No other echocardiographic abnormalities seen. Compared to the prior echo report on 07/30/2015, there is no significant change. Assessment & Plan Zach Medeiros is an 86 year old male with a history of CHF, CAD s/p CABG 1993 and stent, COPD, hypertension, diabetes and atrial fibrillation on warfarin, who presents to the ED via EMS due to a near syncopal event. Presyncopal Episode, Present on Admission, active Likely secondary to orthostatic hypotension from dehydration. Other possibilties include hypoglycemia, arrythmia, aortic stenosis - We will discontinue IV fluids to avoid fluid overload. - Monitor on Telemetry - Echocardiogram noted above - Hold Furosemide and Spironolactone, metolazone until after cardiac catheterization. We will then likely need to restart. Acute on possible chronic kidney injury, present on admission, active. Baseline creatinine appears to be around 1-1.3. Improved from 1.88 to 0.85 today, likely due to dehydration - IV fluids given until today and will discontinue to avoid fluid overload. - Continue holding spironolactone for now - We will avoid nephrotoxic medications. - Repeat serial BMPs COPD, present on admission, chronic. - Continue home inhalers including Advair and albuterol. - Supplemental oxygen as needed to maintain oxygen saturations between 88-92%. Coronary artery disease status post CABG and stenting in 2008, present on admission, chronic. Patient has been having neck pain with exertion. Negative Troponin in ED. Reported - Trending troponins 3. - Monitor on remote telemetry - Diagnostic Cardiac Cath today Atrial fibrillation, present on admission, chronic. EKG showed A. fib that was rate controlled at 79. - Continue verapamil - Remote telemetry to continue - We have discontinued Coumadin for now in preparation for cardiac catheterization. - IV heparin drip for bridging therapy started. Congestive heart failure with reduced ejection fraction, present on admission, chronic. Most recent echo on 07/30/15 showed an EF of 45-50%. - Holding home furosemide and spironolactone due to acute kidney injury and likely dehydration. - Management as above Diabetes mellitus insulin using, present admission, chronic. HgA1c on 10/04/16 was 7.2 - Home metformin held. - Humalog (75/25) 34 units twice a day. Patient Status: Patient admitted for several days in preparation for coronary artery catheterization which would include maintaining INR at 1.5 or less and improving kidney function with IV fluids. Code Status: DNR/DNI GI Prophylaxis: Not indicated VTE Prophylaxis: Theraputic Anticoag with Warfarin VTE Mechanical Devices: Intermittant Pneumatic CD Resuscitation Status: DNR/DNI:Do Not Resuscitate/Intubate Time spent 35 mins Chun Rubio MD Oct 27, 2016 08:53
--- NOTE | 2016-10-27 09:07 | PROG NOTE ---
[address] [address] PROGRESS NOTE PATIENT: ZACH BURROWS : 1930 MR#: [id number] ADMIT: 10/23/2016 JOB ID: [id number] DATE: 10/27/2016 SUBJECTIVE: Overnight, the patient says he has not had any chest pain, nausea, or vomiting. His is resting uncomfortably. He reports shortness of breath on exertion, and mild generalized weakness. OBJECTIVE: Vital signs: Temperature 36.6, blood pressure 112/68 up to 123/78, pulse 65 up to 76 beats per minute. Saturating 99% on room air. Well-nourished man, in no apparent distress. Eyes: No scleral icterus. Neck: Supple. No carotid bruits. Heart: Irregular. No murmurs, rubs, or gallops. Lungs are clear. Anterior abdomen soft with positive bowel sounds. Extremities: Warm, well perfused. No clubbing, cyanosis, or edema. Skin: No rashes or lesions. Right common femoral artery vascular access site shows no bruits and normal palpable pulses. This morning's labs were reviewed. His CBC is normal. His creatinine is 0.9. He has mild hyponatremia with sodium 133. Albumin is a little low at 2.9. His INR was checked today. It was 1.1. CURRENT MEDICATIONS: Reviewed. The patient on: 1. Aspirin 81 mg daily. 2. Imdur 60. 3. Potassium supplement. 4. Lipitor 20 mg daily. 5. Heparin drip per ACS protocol. 6. Verapamil was held due to hypotension. PLAN: Plan for this patient is to be monitored closely. He is going to go through a cardiac catheterization today and see if we can help him with his class III angina and chest discomfort with minimal activity. Thank you very much for the opportunity to participate in his care. Consent was obtained. All questions answered, and report was given to his RN.
[2016-10-27] MEDS ORDERED: Glucose 40% Oral Gel 15 Gm Tube PO PRN (10:05)
[2016-10-27] MEDS ORDERED: Heparin 1,000 Units/500 mL NS Premix IV ONE (11:05)
[2016-10-27] MEDS ORDERED: Heparin 10,000 Unit/1,000 mL NS Premix IV ONE (11:05)
[2016-10-27] MEDS ORDERED: 0.9% Sodium Chloride 1,000 ML ONE (11:05)
[2016-10-27] MEDS ORDERED: Nitroglycerin 50,000 mcg/250 mL D5W Premix IV ONE (11:05)
[2016-10-27] MEDS ORDERED: Heparin 1,000 Unit/mL 10 mL Inj ONE ×3 (11:07→12:50)
[2016-10-27] MEDS ORDERED: Adenosine Inj 20 ML IV ONE (11:08)
[2016-10-27] MEDS ORDERED: Adenosine Inj 40 ML IV ONE (11:08)
[2016-10-27] MEDS ORDERED: 0.9% Sodium Chloride 100 ML ONE (11:08)
--- NOTE | 2016-10-27 11:25 | NUR ---
heparin drip stopped heparin drip per cathode ray tube salvage processor request.
[2016-10-27] MEDS ORDERED: fentaNYL-PF 50 mCg/mL 2 mL Inj ONE ×2 (11:37→12:31)
--- NOTE | 2016-10-27 11:51 | NUR ---
off unit Patient was transferred to dental laboratory technology teacher for procedure. No s/s of distress at time of transfer.
--- NOTE | 2016-10-27 13:40 | CS94 ---
[address] [address] DIAGNOSTIC CARDIAC CATHETERIZATION PATIENT: ZACH BURROWS : 1930 MR#: [id number] ADMIT: 10/23/2016 JOB ID: [id number] SERVICE DATE: 10/27/2016 PATIENT PRESENTATION: The patient is a delightful 86-year-old man with history of coronary artery disease, status post coronary artery bypass graft surgery with a single vein graft to LAD. PAINTER was not harvested because his surgery was performed emergently. His surgery was performed in 1993. Cardiology is consulted to assist with management of class III angina with minimal activity such as walking to the restroom, as well as cardiomyopathy and ejection fraction of 40% to 45%. PROCEDURES PERFORMED: 1. Left heart catheterization -- selective coronary angiogram. 2. Right common femoral artery vascular access under ultrasound guidance. 3. Left ventricular end-diastolic pressure recording. Ventriculogram was deferred deliberately in an attempt to conserve contrast for upcoming graft intervention. METHOD: Following informed consent, the patient was prepped and draped in the usual sterile fashion. A 6-Indonesian sheath was placed in the right common femoral artery under ultrasound guidance. Sheath placement was confirmed via femoral angiogram. JL4 and JR4 catheters were used to engage left main, right coronary artery ostium and a single vein graft to LAD. Hand injection in craniocaudal angulation was used to obtain selective coronary angiograms. All exchanges were performed over a wire. After diagnostics were performed, case was turned over for intervention. FINDINGS: 1. Right common femoral vascular access: Right common femoral artery gives rise to SFA and profunda. Patient has low bifurcation. The sheath enters the right common femoral artery just above the bifurcation. There is no evidence of contrast extravasation or dissection. There is mild disease noted in the origin of the profunda but no significant peripheral arterial disease noted otherwise. 2. Hemodynamics: Left ventricular end-diastolic pressure is 12 mmHg. There is no evidence of aortic stenosis based on pullback. The patient had borderline blood pressures during the case with systolics ranging between 100 up to 130 mmHg. 3. Incidental findings: We can visualize the dual-chamber permanent pacemaker leads. 4. Coronary angiogram: Left main is a normal caliber vessel, gives rise to LAD and the circumflex. There is no dampening on engagement. There is mild 40% distal left main disease. Left anterior descending is a severely diseased vessel. It demonstrates 50% ostial disease, followed by 90% proximal disease just at the bifurcation point of the first septal dialysis biomed technician. There is 99% mid LAD disease just after the first septal dialysis biomed technician. The LAD has very sluggish flow distal to that vessel. LAD is ectatic distal to the mid LAD 99% stenosis and distal flow is not well visualized, so there is a good chance it is actually subtotally occluded in its mid portion. Circumflex is a nondominant vessel. It gives rise to OM1 that is a big branching vessel, OM2 that is also a big branching vessel and then it travels in the AV groove as a diminutive vessel. There is mild, about 30% proximal circumflex disease but it does not appear to be hemodynamically significant. Right coronary artery is a dominant vessel. It demonstrates a 50% proximal right coronary artery stenosis. It gives rise to PDA and two posterolateral branches. No obstructive disease is seen. The vein graft appears to be stented in the past. It has mild disease in its midportion, about 30% to 40% but it has a 90% stenosis at the anastomosis. The LAD is filled both antegrade and retrograde, and we can quite well see the subtotal occlusion distal to the ectatic dissection of the LAD. The retrograde filling is quite good and actually LAD fills retrograde into the medium-sized second diagonal branch and small first diagonal branch. IMPRESSION: 1. 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 2. A 90% disease in the anastomosis of the vein graft to left anterior descending coronary. PLAN: The patient will proceed with intervention. Thank you very much for the opportunity to evaluate him.
[2016-10-27] MEDS ORDERED: Famotidine 20 mg/50 mL NS Premix IV ONE (14:06)
[2016-10-27] MEDS ORDERED: Famotidine 10 mg/mL 2 mL Inj IVPUSH ONE (14:15)
[2016-10-27] MEDS ORDERED: Alum-Mag Hydrox-Simeth 30 mL Suspension PO ONE (14:15)
[2016-10-27] MEDS ORDERED: Famotidine 20 mg/50 mL NS IV ONE (14:25)
--- NOTE | 2016-10-27 14:55 | DI95 ---
[address] [address] INTERVENTIONAL CARDIAC CATHETERIZATION PATIENT: ZACH BURROWS : 1930 MR#: [id number] ADMIT: 10/23/2016 JOB ID: [id number] DATE OF PROCEDURE: 10/27/2016 PATIENT PROFILE: The patient is an 86-year-old male who underwent coronary artery bypass surgery x1 in 1993 utilizing saphenous vein graft to the LAD. In 2008, the patient had recurrent symptoms and had stent placement to the LAD saphenous graft with a 4 x 18 mm bare metal stent. He was hospitalized with progressive angina. PROCEDURE: Balloon angioplasty and stenting to the distal portion of the left anterior descending graft. VASCULAR CLOSURE DEVICE: StarClose. COMPLICATIONS: None. METHOD: Following diagnostic coronary angiogram performed by Dr. Spencer, heparin 8,000 units were given. A 6-Mexican JR4 guide was advanced to the saphenous vein graft ostium. A Runthrough wire was placed inside this graft. The guide catheter does not provide enough support. A guide liner was then used. The distal graft lesion was pre-dilated with a 2.5 x 12 mm balloon. A Resolute [place] 2.75 x 8 mm stent was placed inside the lesion and deployed at 24 atmospheres for 30 seconds. A 3.0 x 8 and a 3.5 x 8 mm balloons were used for post stent deployment dilation. It was inflated up to 18 atmospheres for 30 seconds. Final angiogram was obtained. Following sheath removal, hemostasis was achieved by using a StarClose device. The patient tolerated the procedure well. He was transferred to [facility] in good condition. RESULTS: Successful balloon angioplasty and stenting to the distal saphenous vein graft to the left anterior descending artery lesion by deploying one drug eluting stent to achieve an excellent angiographic result with PEPPER-3 flow distally. YUAN
[2016-10-27] MEDS: Sodium Chloride LOK Flush 10 mL Syringe IVFLUSH SCH (16:30)
--- NOTE | 2016-10-27 20:00 | NUR ---
MAXINE Patient admitted to [facility] bed 9 from geophysical laboratory director stent placement at 1355. No bleeding or hematoma at right groin starclose. Pedal pulses present. Family at bedside. Patient taking PO and voiding pr urinal. Transferred to bed 2006 by bed at 1945. Report to receiving RN.
[2016-10-28] MEDS: Sodium Chloride LOK Flush 10 mL Syringe IVFLUSH SCH ×2 (00:30→10:04)
[2016-10-28 02:36] LABS: Mean Corpuscular Hemoglobin 30.2 pg (27.0-35.0); Mean Corpuscular Volume 90.9 fL (81-100)
[2016-10-28 02:54] LABS: INR 1.09 ratio
[2016-10-28 03:15] VITALS: BP 113/70; RESP 20; O2SAT 99
--- NOTE | 2016-10-28 06:31 | NUR ---
Groin Pt right groin site, soft non tender with no hematoma noted, pulses palpable. NO CP or SOB noted. VSS and Tele AFlutter,.
[2016-10-28 07:20] VITALS: BP 91/61; PULSE 78; RESP 20; O2SAT 97
[2016-10-28] MEDS: Fluticasone 0.05% 15 Spray/2 Gm 16 Gm Nasal Spray NASAL SCH (10:03)
[2016-10-28] MEDS: Isosorbide Mononitrate 60 mg ER24 Tablet PO SCH (10:03)
[2016-10-28] MEDS: Fluticasone-Salmererol 250-50 Inhaler INHALATION SCH (10:03)
[2016-10-28] MEDS: Insulin LISPRO 300 Unit/3 mL Inj SUBQ SCH ×2 (10:12→12:03)
[2016-10-28 11:08] VITALS: PULSE 82
[2016-10-28 12:34] VITALS: BP 102/64; PULSE 76; RESP 14; O2SAT 100
--- NOTE | 2016-10-28 12:52 | NUR ---
Social Work-readiness for discharge: Data:EMR reviewed. Pt is on day 5 of hospitalization for CHF per H&P. Pt is not medically stable anticipate 1-2 more days. Pt resides at home with his where he remains independent with ADls. PT evaluation is pending. SW will continue to follow. Assessment:pt who is independent at baseline. Plan:Pt to discharge home when medically stable via POV. PT evaluation is pending. SW will continue to follow MORGAN Colin
[2016-10-28] MEDS ORDERED: ASPI81TA3 PO (13:07)
[2016-10-28] MEDS ORDERED: CLOP75TA28 PO (13:07)
--- NOTE | 2016-10-28 13:15 | PCM.DIMED ---
Discharge Instructions Date of Service Oct 28, 2016 Dates of Hospitalization Oct 23, 2016 at 20:25 Discharge Diagnosis Discharge Diagnosis Acute coronary syndrome, Status post stent to LAD saphenous graft Syncope, postural hypotension Chronic atrial fibrillation Warfarin anticoagulation interruption Acute kidney injury Medication Instructions Additional med instructions Prescriptions for aspirin and Plavix have been sent to the [facility] pharmacy. It is important that you continue these 2 medications continuously until instructed further by your gamma operator. You will need a refill of Plavix within 1 month. Resume your usual dose of warfarin. Test Results Test Results INR on day of discharge 1.09 Diet Discharge Diet: Heart Healthy, Diabetic Activity Discharge Activity: Other (no lifting greater than 10 pounds for at least 10 days to avoid straining right groin) Call your provider Call your provider for: Shortness of breath, Chest pain Patient Instructions Follow-up plan Contact the INR pro time clinic and have your blood INR checked early next week Follow-up Provider: Hina Cabrera MD Follow-up with PCP in: 1 week (call for a posthospitalization follow-up appointment) Provider: Freeman Thompson MD Follow-up in: Other (call for a posthospitalization follow-up appointment) Stevie Morel MD Oct 28, 2016 13:14
--- NOTE | 2016-10-28 14:17 | NUR ---
Social Work: Discharge Data: Pt is on day 5 of hospitalization. EMR reviewed. Pt declined PT evaluation as they state they are fine to d/c home. No further d/c planning needs at this time. RN RECRUITMENT will continue to follow if needs arise. Assessment: Pt who is independent at baseline, capable of self care at this time. Plan: Pt henrique discharge home today via POV with spouse. No further d/c planning needs at this time. RN RECRUITMENT will continue to follow if needs arise. MORGAN Meneses
--- NOTE | 2016-10-28 15:30 | NUR ---
discharge 1400 all discharge instructions reviewed with pt, daughter, and . Pt verb understanding. PIV removed with ease. Pt escorted out via wheelchair without incident.
--- NOTE | 2016-10-28 19:46 | PCM.DC.MED ---
Discharge Summary Date of Service Oct 28, 2016 Dates of Hospitalization Date of Hospital Admission Oct 23, 2016 at 20:25 Date of Discharge: Oct 28, 2016 Providers: Admitting Physician: Nico Grimaldo MD Primary Care Physician: Hina Cabrera MD Attending Physician: Ayesha Vazquez MD Diagnosis at Time of Discharge Diagnosis at Time of Discharge Acute coronary syndrome, Status post stent to LAD saphenous graft Syncope, postural hypotension Chronic atrial fibrillation Warfarin anticoagulation interruption Acute kidney injury Procedures XRay, CTs & MRIs PROCEDURE: X-RAY CHEST ONE VIEW, PORTABLE ([id number]) IMPRESSION: No acute cardiopulmonary disease. Dictated by: Dwayne Loza M.D. on 10/23/2016 at 17:16 ECG 12 Lead Atrial fibrillation Nonspecific intraventricular conduction delay Anterior infarct, old Heart rate 79 Cardiac Echo Impression Echocardiogram Report Name: ZACH MEDEIROS Study Date: 10/24/2016 Interpretation Summary The left ventricle is normal in size. The ejection fraction is estimated to be 45-50%. There is a moderate dyssynchronous contraction pattern due to the paced rhythm. The right ventricle is normal in size and function. The right ventricular systolic pressure is estimated at 36 mmHg assuming a right atrial pressure of 8 mm Hg. There is no significant valvular heart disease. No other echocardiographic abnormalities seen. Compared to the prior echo report on 07/30/2015, there is no significant change. . Invasive Procedures INTERVENTIONAL CARDIAC CATHETERIZATION DATE OF PROCEDURE: 10/27/2016 PATIENT PROFILE: The patient is an 86-year-old male who underwent coronary artery bypass surgery x1 in 1993 utilizing saphenous vein graft to the LAD. In 2008, the patient had recurrent symptoms and had stent placement to the LAD saphenous graft with a 4 x 18 mm bare metal stent. He was hospitalized with progressive angina. PROCEDURE: Balloon angioplasty and stenting to the distal portion of the left anterior descending graft. RESULTS: Successful balloon angioplasty and stenting to the distal saphenous vein graft to the left anterior descending artery lesion by deploying one drug eluting stent to achieve an excellent angiographic result with PEPPER-3 flow distally. . Other Diagnostics DIAGNOSTIC CARDIAC CATHETERIZATION PATIENT: ZACH MEDEIROS : 1930 MR#: [id number] ADMIT: 10/23/2016 JOB ID: [id number] SERVICE DATE: 10/27/2016 PATIENT PRESENTATION: The patient is a delightful 86-year-old man with history of coronary artery disease, status post coronary artery bypass graft surgery with a single vein graft to LAD. PAINTER was not harvested because his surgery was performed emergently. His surgery was performed in 1993. Cardiology is consulted to assist with management of class III angina with minimal activity such as walking to the restroom, as well as cardiomyopathy and ejection fraction of 40% to 45%. PROCEDURES PERFORMED: 1. Left heart catheterization -- selective coronary angiogram. 2. Right common femoral artery vascular access under ultrasound guidance. 3. Left ventricular end-diastolic pressure recording. Ventriculogram was deferred deliberately in an attempt to conserve contrast for upcoming graft intervention. FINDINGS: 1. Right common femoral vascular access: Right common femoral artery gives rise to SFA and profunda. Patient has low bifurcation. The sheath enters the right common femoral artery just above the bifurcation. There is no evidence of contrast extravasation or dissection. There is mild disease noted in the origin of the profunda but no significant peripheral arterial disease noted otherwise. 2. Hemodynamics: Left ventricular end-diastolic pressure is 12 mmHg. There is no evidence of aortic stenosis based on pullback. The patient had borderline blood pressures during the case with systolics ranging between 100 up to 130 mmHg. 3. Incidental findings: We can visualize the dual-chamber permanent pacemaker leads. 4. Coronary angiogram: Left main is a normal caliber vessel, gives rise to LAD and the circumflex. There is no dampening on engagement. There is mild 40% distal left main disease. Left anterior descending is a severely diseased vessel. It demonstrates 50% ostial disease, followed by 90% proximal disease just at the bifurcation point of the first septal construction cost estimator. There is 99% mid LAD disease just after the first septal construction cost estimator. The LAD has very sluggish flow distal to that vessel. LAD is ectatic distal to the mid LAD 99% stenosis and distal flow is not well visualized, so there is a good chance it is actually subtotally occluded in its mid portion. Circumflex is a nondominant vessel. It gives rise to OM1 that is a big branching vessel, OM2 that is also a big branching vessel and then it travels in the AV groove as a diminutive vessel. There is mild, about 30% proximal circumflex disease but it does not appear to be hemodynamically significant. Right coronary artery is a dominant vessel. It demonstrates a 50% proximal right coronary artery stenosis. It gives rise to PDA and two posterolateral branches. No obstructive disease is seen. The vein graft appears to be stented in the past. It has mild disease in its midportion, about 30% to 40% but it has a 90% stenosis at the anastomosis. The LAD is filled both antegrade and retrograde, and we can quite well see the subtotal occlusion distal to the ectatic dissection of the LAD. The retrograde filling is quite good and actually LAD fills retrograde into the medium-sized second diagonal branch and small first diagonal branch. IMPRESSION: 1. Severe [place] left anterior descending disease characterized by 90% proximal left anterior descending stenosis and subtotal occlusion of the mid left anterior descending. 2. A 90% disease in the anastomosis of the vein graft to left anterior descending coronary. Lisbeth Spencer MD 10/27/16 1252. Brief History History of Present Illness (per admission note): Zach Medeiros is an 86 year old male with a history of CHF, CAD s/p CABG 1993 and stent, COPD, hypertension, diabetes and atrial fibrillation on warfarin, who presents to the ED via EMS due to a near syncopal event. He was at a clinic getting his INR checked, when they stood him up, he felt lightheaded and dizzy, nearly fainting. He was found to have a blood pressure 90s/80s and a repeat of 80s/50s. EMS then brought him in. He mentions he has never had something like this before. He also reports a posterior, 8/10 neck pain, pressure in nature, that he's had daily with exertion that wraps around anteriorly. It has been occurring daily for the last 3-4 weeks with very minimal walking and has associated SOB and weakness. He did have this pain today in the morning for which he took nitro with relief for about 5 minutes, but had symptoms after exerting himself again. He denies fevers, chills, diaphoresis, nausea, vomiting , abdominal pain and changes in bowel habits. Of note, the patient recently had pneumonia 3 weeks ago and has continued to feel sick since. He is currently finishing day 10 of his Augmentin course. Hospital Course Presyncopal Episode, Present on Admission, active Likely secondary to orthostatic hypotension from dehydration. Less likely possibilities include hypoglycemia, arrythmia, aortic stenosis - Initial IV fluids then discontinued due to concerns for fluid overload - Monitored on Telemetry - Echocardiogram noted above -Restart diuretics at time of discharge Acute on possible chronic kidney injury, present on admission, active. Baseline creatinine appears to be around 1-1.3. Improved from 1.88 to 0.85 or to discharge, likely due to dehydration COPD, present on admission, chronic. - Continue home inhalers including Advair and albuterol. - Supplemental oxygen as needed to maintain oxygen saturations between 88-92%. Coronary artery disease status post CABG and stenting in 2008, present on admission, chronic. Patient has been having neck pain with exertion. Negative Troponin in ED. Reported - Trending troponins 3. Were all negative - Diagnostic and interventional Cardiac Cath as described Atrial fibrillation, present on admission, chronic. EKG showed A. fib that was rate controlled at 79. - Warfarin interrupted due to need for interventional procedure - Resume warfarin Congestive heart failure with reduced ejection fraction, present on admission, chronic. Most recent echo on 07/30/15 showed an EF of 45-50%. - Resume CHF medications at time of discharge Diabetes mellitus insulin using, present admission, chronic. HgA1c on 10/04/16 was 7.2 - Resume metformin - Resume Humalog (/) 34 units twice a day. Code Status: DNR/DNI Exam Vital Signs (Last) Date Time Temp Pulse Resp B/P Pulse Ox O2 Delivery O2 Flow Rate FiO2 10/28/16 12:34 36.5 76 14 102/64 100 Room Air 10/23/16 20:46 1 Exam General: Ill-appearing elderly man no acute distress HEENT: sclerae anicteric, oral mucosa moist Neck: no JVD Chest: clear to auscultation Cardiac: S1S2, regular, no murmur Abdomen: BS normal, non-tender; groin site with some ecchymosis but no losing Extremities: No pitting edema Neuro: Alert and oriented, cranial nerves symmetric, motor strength 5/5, coordination normal Test 10/23/16 16:30 10/23/16 19:20 10/23/16 20:21 10/25/16 06:10 Pro-B-Type Natriuretic Peptide 685.6pg/mL (0-486) Hold Urine Received (Received) Urine Color Yellow (YELLOW) Urine Appearance Clear (CLEAR,HAZY) Urine pH 5.5 (5.0-8.0) Urine Specific [place] 1.010 (1.003-1.035) Urine Protein Negativemg/dL (NEG,TRACE) Urine Glucose (UA) Negativemg/dL (NEGATIVE) Urine Ketones Negativemg/dL (NEGATIVE) Urine Occult Blood Negative (NEGATIVE) Urine Nitrite Negative (NEGATIVE) Urine Bilirubin Negative (NEGATIVE) Urine Urobilinogen Normalmg/dL (NORMAL) Urine Leukocyte Esterase Negative (NEGATIVE) Urine RBC 0-2/hpf (0-2) Urine WBC 0-5/hpf (0-5) Urine Epithelial Cells None/hpf (NONE-MOD) Urine Crystals None seen (NONE SEEN) Urine Bacteria None/hpf (NONE-FEW) Urine Hyaline Casts None/lpf (NONE) Urine Granular Casts None seen (NONE SEEN) Urine Waxy Casts None seen (NONE SEEN) Urine Red Blood Cell Casts None seen (NONE SEEN) Urine White Blood Cell Casts None seen (NONE SEEN) Urine Mucus None seen (None Seen) Urine Trichomonas None seen (NONE SEEN) Urine Yeast None (NONE SEEN) Urinalysis Comment None Urine Culture Reflexed Not indicated Troponin T 0.010ug/L (0.0-0.011) Test 10/27/16 05:45 10/27/16 11:45 10/28/16 02:05 Neutrophils (%) (Auto) 70.6% (40-74) Lymphocytes (%) (Auto) 15.4% (14-46) Monocytes (%) (Auto) 9.6% (4-12) Eosinophils (%) (Auto) 3.8% (0-5) Basophils (%) (Auto) 0.2% (0-3) Magnesium Level 1.9mg/dL (1.6-2.6) Total Bilirubin 0.6mg/dL (0.0-1.2) Aspartate Amino Transf (AST/SGOT) 11U/L (0-50) Alanine Aminotransferase (ALT/SGPT) 11U/L (0-44) Alkaline Phosphatase 101U/L (25-160) Total Protein 6.7g/dL (6.4-8.4) Albumin 2.9g/dL (3.4-5.0) Activated Partial Thromboplast Time 48.5sec (22.8-33.0) White Blood Count 8.8th/mm3 (3.8-10.1) Red Blood Count 4.17mil/mm3 (4.40-5.80) Hemoglobin 12.6g/dL (13.8-17.2) Hematocrit 37.9% (41.0-50.0) Mean Corpuscular Volume 90.9fL (81-100) Mean Corpuscular Hemoglobin 30.2pg (27.0-35.0) Mean Corpuscular Hemoglobin Concent 33.2% (32.0-37.0) Red Cell Distribution Width 14.4% (12.3-15.4) Platelet Count 194bil/L (150-400) Prothrombin Time 11.7sec (8.1-12.5) Prothromb Time International Ratio 1.09ratio Sodium Level 135mEq/L (134-144) Potassium Level 4.3mEq/L (3.5-5.2) Chloride Level 103mEq/L (97-108) Carbon Dioxide Level 21mmol/L (18-29) Blood Urea Nitrogen 23mg/dL (8-27) Creatinine 0.76mg/dL (0.76-1.27) Estimat Glomerular Filtration Rate 103mL/min (>59) Glucose Level 225mg/dL (60-99) Calcium Level 8.6mg/dL (8.5-10.1) Discharge Medications Discharge Medications Albuterol Neb Soln (Albuterol Neb Soln) 2.5 Mg/3 Ml Vial.neb 2.5 MG INHALATION QID (Reported) Aspirin Chew (Aspirin Chew) 81 Mg Chew 81 MG PO DAILY Prescribed by: AYESHA VAZQUEZ MD Atorvastatin Calcium (Atorvastatin Calcium) 20 Mg Tablet 20 MG PO HS (Reported) Calcium Citrate/Vitamin D3 (Citracal-Vit D 200 mg-250 Tab) 1 Each Tablet 1 EACH PO BIDWM (Reported) Clopidogrel (Clopidogrel) 75 Mg Tablet 75 MG PO DAILY Prescribed by: AYESHA VAZQUEZ MD Fluticasone Propionate (Fluticasone Propionate Nasal) 16 Gm [place].susp 1 SPRAY NASAL BID (Reported) Fluticasone/Salmeterol (Advair 250-50 Diskus) 60 Puff/Inh Disk 1 PUFF INH BID ( Reported) Furosemide (Furosemide) 80 Mg Tab 160 MG PO QAM (Reported) Insulin Lispro (HumaLOG U100 Insulin Pen) 100 Unit/1 Ml Insuln.pen 4 UNITS SUBQ DAILY (Reported) @ NOON Insulin NPL/Insulin Lispro (HumaLOG 75/25 U100 Insulin Kwikpen) 100 Unit/1 Ml Insuln.pen 34 UNITS SUBQ BIDWM (Reported) Isosorbide [place] ER (Isosorbide MN ER) 60 Mg Tab.er.24h 60 MG PO QAM (Reported) Metformin (Metformin) 500 Mg Tablet 500 MG PO BID (Reported) Potassium Chloride (Potassium Chloride) 10 Meq Tab.er.prt 10 MEQ PO QIDWM ( Reported) Spironolactone (Spironolactone) 25 Mg Tablet 25 MG PO QAM (Reported) Verapamil ER (Verapamil ER) 240 Mg Tber 240 MG PO DAILYWD (Reported) Warfarin Sodium (Warfarin Sodium) 5 Mg Tablet 2.5 MG PO DAILYWD (Reported) As needed Albuterol HFA (Proair HFA) 8.5 Gm Hfa.aer.ad 1 PUFF INH q4-6 hours PRN PRN For Shortness of Breath (Reported) Docusate Sodium (Docusate Sodium) 250 Mg Capsule 250 MG PO DAILY PRN PRN For Constipation (Reported) Metolazone (Metolazone) 2.5 Mg Tablet 2.5 MG PO Q5D PRN PRN EDEMA (Reported) Nitroglycerin SL (Nitrostat) 0.4 Mg Tab.subl 0.4 MG SL Q5MIN PRN PRN For Chest Pain (Reported) Polyethylene Glycol 3350 (Miralax) 17 Gm Powd.pack 17 GM PO DAILY PRN PRN For Constipation (Reported) Additional med instructions Prescriptions for aspirin and Plavix have been sent to the [facility] pharmacy. It is important that you continue these 2 medications continuously until instructed further by your percher. You will need a refill of Plavix within 1 month. Resume your usual dose of warfarin. Followup Plan Follow-up plan Contact the INR pro time clinic and have your blood INR checked early next week Discharge Diet: Heart Healthy, Diabetic Discharge Activity: Other (no lifting greater than 10 pounds for at least 10 days to avoid straining right groin) Follow-up Provider: Hina Cabrera MD Follow-up with PCP in: 1 week (call for a posthospitalization follow-up appointment) Provider: Freeman Thompson MD Follow-up in: Other (call for a posthospitalization follow-up appointment) Time spent 35 minutes copies to: Freeman Thompson MD; Hina Cabrera MD, Jeffrey W MD Oct 28, 2016 13:19
== END 2016-10-28 14:38 | disposition home or self-care (01) | DRG 247 ==
LOC: SED 16:07 → EDBD 16:07 → MPC 20:25 → PCC 10-27 19:35
PROVIDERS: ADMIT Hospitalist; ATTEND Hospitalist
PROC: 4A023N7 Measurement of Cardiac Sampling and Pressure, Left Heart, Percutaneous Approach (ICD-10-PCS; principal; 2016-10-27)
PROC: 027034Z Dilation of Coronary Artery, One Artery with Drug-eluting Intraluminal Device, Percutaneous Approach (ICD-10-PCS; 2016-10-27)
PROC: B2121ZZ Fluoroscopy of Single Coronary Artery Bypass Graft using Low Osmolar Contrast (ICD-10-PCS; 2016-10-27)
PROC: B2111ZZ Fluoroscopy of Multiple Coronary Arteries using Low Osmolar Contrast (ICD-10-PCS; 2016-10-27)
DX: I25.719 Atherosclerosis of autologous vein coronary artery bypass graft(s) with unspecified angina pectoris (principal); N17.9 Acute kidney failure, unspecified; I50.22 Chronic systolic (congestive) heart failure; I25.119 Atherosclerotic heart disease of native coronary artery with unspecified angina pectoris; Z85.46 Personal history of malignant neoplasm of prostate; E86.0 Dehydration; J44.9 Chronic obstructive pulmonary disease, unspecified; Z79.01 Long term (current) use of anticoagulants; Z95.1 Presence of aortocoronary bypass graft; I25.9 Chronic ischemic heart disease, unspecified; I10 Essential (primary) hypertension; Z95.0 Presence of cardiac pacemaker; E11.9 Type 2 diabetes mellitus without complications; I25.2 Old myocardial infarction; Z95.5 Presence of coronary angioplasty implant and graft; I48.2 Chronic atrial fibrillation; Z66 Do not resuscitate; J45.909 Unspecified asthma, uncomplicated

== ENCOUNTER 2016-11-16 11:19 | Emergency (ER) | payer MEDICARE, OTHER ==
[~2016-11-16] VITALS: Ht 172.7 cm; Wt 85.5 kg
[~2016-11-16 11:19] MED LIST changes: -AMOX-366 PO; +ASPI81TA3 PO; +CLOP75TA28 PO; -INSU100C8 SUBQ; +INSU100I18 SUBQ; +METF500T4 PO
[2016-11-16 11:22] VITALS: BP 137/76; PULSE 76; RESP 15; O2SAT 99
--- NOTE | 2016-11-16 11:39 | ED.REPORT ---
HPI-General Illness Date of Service Nov 16, 2016 ED Provider: Eduard Lundberg PA-C Eric is a 86-year-old male with a history of asthma, COPD, CHF, CAD and HTN with a stent placed last week presents emergency department for a laceration on his right arm. Patient states that yesterday he caught his forearm on a sharp portion of suspenders causing a laceration. This was seen and bandaged at the urgent care however the patient reports that the bleeding will not stop. Patient reports a INR of roughly 2.5 taken 2 days ago, but is concurrently on Plavix and aspirin due to his stent placement. He denies other complaints including chest pain, shortness of breath, lightheadedness, fever, shaking chills, malaise. Last tetanus shot was 4 years ago. Nursing Notes Stated Complaint: LACERATION ON RIGHT ARM Chief Complaint: Extremity Trauma Nursing Notes Reviewed: Yes Allergies: Coded Allergies: No Known Allergies (Verified , 10/19/16) Scheduled Albuterol Neb Soln (Albuterol Neb Soln) 2.5 Mg/3 Ml Vial.neb 2.5 MG INHALATION QID Aspirin Chew (Aspirin Chew) 81 Mg Chew 81 MG PO DAILY Atorvastatin Calcium (Atorvastatin Calcium) 20 Mg Tablet 20 MG PO HS Calcium Citrate/Vitamin D3 (Citracal-Vit D 200 mg-250 Tab) 1 Each Tablet 1 EACH PO BIDWM Clopidogrel (Clopidogrel) 75 Mg Tablet 75 MG PO DAILY Fluticasone Propionate (Fluticasone Propionate Nasal) 16 Gm [place].susp 1 SPRAY NASAL BID Fluticasone/Salmeterol (Advair 250-50 Diskus) 60 Puff/Inh Disk 1 PUFF INH BID Furosemide (Furosemide) 80 Mg Tab 160 MG PO QAM Insulin Lispro (HumaLOG U100 Insulin Pen) 100 Unit/1 Ml Insuln.pen 4 UNITS SUBQ DAILY @ NOON Insulin NPL/Insulin Lispro (HumaLOG 75/25 U100 Insulin Kwikpen) 100 Unit/1 Ml Insuln.pen 34 UNITS SUBQ BIDWM Isosorbide [place] ER (Isosorbide MN ER) 60 Mg Tab.er.24h 60 MG PO QAM Metformin (Metformin) 500 Mg Tablet 500 MG PO BID Potassium Chloride (Potassium Chloride) 10 Meq Tab.er.prt 10 MEQ PO QIDWM Spironolactone (Spironolactone) 25 Mg Tablet 25 MG PO QAM Verapamil ER (Verapamil ER) 240 Mg Tber 240 MG PO DAILYWD Warfarin Sodium (Warfarin Sodium) 5 Mg Tablet 2.5 MG PO DAILYWD Scheduled PRN Albuterol HFA (Proair HFA) 8.5 Gm Hfa.aer.ad 1 PUFF INH q4-6 hours PRN PRN For Shortness of Breath Docusate Sodium (Docusate Sodium) 250 Mg Capsule 250 MG PO DAILY PRN PRN For Constipation Metolazone (Metolazone) 2.5 Mg Tablet 2.5 MG PO Q5D PRN PRN EDEMA Nitroglycerin SL (Nitrostat) 0.4 Mg Tab.subl 0.4 MG SL Q5MIN PRN PRN For Chest Pain Polyethylene Glycol 3350 (Miralax) 17 Gm Powd.pack 17 GM PO DAILY PRN PRN For Constipation General Time Seen by MD: 11:28 Chief Complaint Laceration Past Medical History Past Medical History Notes: [employer]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 Head: Atraumatic, normocephalic. Eyes: No scleral icterus or injection. No discharge. Vision grossly intact. ENT: Voice clear, hearing grossly intact. Respiratory: Regular rate and rhythm. Breath sounds present and equal bilaterally, with mild wheezes globally . No respiratory distress. No increased work of breathing, speaks in complete sentences. Cardiovascular: Regular rate and rhythm, without murmur, gallop or rub. No pedal edema. Skin: Warm and dry. Neurological: Grossly nonfocal. Psychological: Alert and oriented. Speech appropriate, linear and logical. Behavior appropriate. Vital Signs Vital Signs Date Time Temp Pulse Resp B/P Pulse Ox O2 Delivery O2 Flow Rate FiO2 11/16/16 13:50 36.3 72 109/75 97 Room Air 11/16/16 11:22 36 76 15 137/76 99 Room Air Normal Interpretation & Diagnostics Lab Results Interpretation Test 11/16/16 12:35 Prothrombin Time 28.9sec (8.1-12.5) Prothromb Time International Ratio 2.65ratio Re-Eval/Medical Decision Med Decision/Clinical Course A 6-year-old male history of stent placement one week ago and anticoagulated on Coumadin, Plavix and aspirin presents emergency Department due to a laceration on his right arm which will not stop bleeding. Patient reports small skin tear sustained when he caught his arm on suspenders yesterday. This was seen in urgent care and dressed however it will not stop bleeding. Denies other symptoms. He is up-to-date on tetanus. Physical examination is generally benign, significant for a triangular 1 cm x 1 cm tear on the dorsal right forearm that continues to seep blood. Patient presents with a large Band-Aid covering the wound, this is quite difficult to remove without causing additional damage. This is carefully removed using adhesive solvent. The wound is thoroughly cleansed and dressed with LET, Gelfoam, gauze and Coban. The patient remains neurovascularly intact distal to the dressing as checked by me. PT/INR is taken, INR is 2.65. While INR is slightly supratherapeutic, I feel this is unlikely to be a significant factor in his ongoing bleeding and did not recommend any changes at this time. I do recommend primary care follow-up to further assess. Advised regarding wound care. Advised regarding primary care follow-up, provided emergency return precautions. Patient verbalized understanding of, and consent to, the plan. Discharge & Departure Primary Impression: Skin tear Disposition: Home Discharge Condition All VS Reviewed: Yes Additional Instructions: Evaluation for ongoing bleeding from a skin tear in the emergency department includes interview, physical examination and a check of her Coumadin level. I believe are stable and safe to go home. We have dressed the wound with special agents to promote clotting. Leave this dressing on and dry for 24 hours. After that you can remove the dressing. I recommend that you soak the dressing for about 10 minutes before attempting to remove it. This will help prevent tearing the clot off. You can wash gently with soap and water and replace the dressing. The test of your Coumadin level shows it is just a little bit high at 2.64. This is unlikely to be exacerbating your bleeding significantly. I do recommend you follow up with primary care in a few days to check another level. Return the emergency Department for any worsening symptoms including ongoing bleeding, chest pain or shortness of breath. Referrals: Hina Cabrera MD (PCP) EDSupervising Provider for APC: Uziel Cuba MD copies to: Hina Cabrera MD, Seth PA-C Nov 16, 2016 11:39
[2016-11-16] MEDS ORDERED: Gelatin Sponge 12-7 MM TOPICAL ONE (11:55)
[2016-11-16] MEDS ORDERED: Lidocaine-Epi-Tetracaine Solution 3 mL Syringe TOPICAL ONE (11:55)
[2016-11-16] MEDS ORDERED: [UNRECOGNIZED DRUG - SUPPLY] TOPICAL ONE (12:05)
[2016-11-16 13:08] LABS: INR 2.65 ratio
[2016-11-16 13:50] VITALS: BP 109/75; PULSE 72; O2SAT 97
== END 2016-11-16 13:48 | disposition home or self-care (01) ==
LOC: SED 11:19
DX: S51.811A Laceration without foreign body of right forearm, initial encounter (principal); W26.8XXA Contact with other sharp object(s), not elsewhere classified, initial encounter; Y93.89 Activity, other specified; Y99.8 Other external cause status; Y92.018 Other place in single-family (private) house as the place of occurrence of the external cause; J45.909 Unspecified asthma, uncomplicated; I50.9 Heart failure, unspecified; I10 Essential (primary) hypertension; I25.10 Atherosclerotic heart disease of native coronary artery without angina pectoris; I25.2 Old myocardial infarction; Z95.1 Presence of aortocoronary bypass graft; Z90.79 Acquired absence of other genital organ(s); Z85.46 Personal history of malignant neoplasm of prostate; Z87.891 Personal history of nicotine dependence; Z95.0 Presence of cardiac pacemaker; Z79.82 Long term (current) use of aspirin; Z79.4 Long term (current) use of insulin; Z79.84 Long term (current) use of oral hypoglycemic drugs; Z79.51 Long term (current) use of inhaled steroids; Z79.01 Long term (current) use of anticoagulants; Z79.02 Long term (current) use of antithrombotics/antiplatelets

== ENCOUNTER 2016-11-23 09:19 | Emergency (ER) | payer MEDICARE, OTHER ==
[~2016-11-23] VITALS: Ht 172.7 cm; Wt 86.8 kg
[2016-11-23 09:26] VITALS: BP 110/65; PULSE 64; RESP 16; O2SAT 98
--- NOTE | 2016-11-23 09:41 | ED.REPORT ---
HPI-Rash / Abscess Date of Service Nov 23, 2016 ED Provider: Boogie Horn DO This is a 86-year-old male with history of COPD, CAD with recent stent 2 weeks prior, on warfarin, Plavix, baby aspirin who presents to the ED for skin tear. Patient was here 1 week prior for right arm skin tear and had it treated with Surgicel. Patient reports his bleeding has stopped. He also notes one week prior he has a new skin tear on left arm after hitting a shower door jam which has also been bleeding. Patient has had tetanus shot 4 years prior. He denies any pus, swelling, loss in sensation or motor intact. Patient denies fevers, chills, chest pain, shortness of breath, abdominal pain. Nursing Notes Stated Complaint: SKIN LACERATION Chief Complaint: Laceration Allergies: Coded Allergies: No Known Allergies (Verified , 10/19/16) Scheduled Albuterol Neb Soln (Albuterol Neb Soln) 2.5 Mg/3 Ml Vial.neb 2.5 MG INHALATION QID Aspirin Chew (Aspirin Chew) 81 Mg Chew 81 MG PO DAILY Atorvastatin Calcium (Atorvastatin Calcium) 20 Mg Tablet 20 MG PO HS Calcium Citrate/Vitamin D3 (Citracal-Vit D 200 mg-250 Tab) 1 Each Tablet 1 EACH PO BIDWM Clopidogrel (Clopidogrel) 75 Mg Tablet 75 MG PO DAILY Fluticasone Propionate (Fluticasone Propionate Nasal) 16 Gm [place].susp 1 SPRAY NASAL BID Fluticasone/Salmeterol (Advair 250-50 Diskus) 60 Puff/Inh Disk 1 PUFF INH BID Furosemide (Furosemide) 80 Mg Tab 160 MG PO QAM Insulin Lispro (HumaLOG U100 Insulin Pen) 100 Unit/1 Ml Insuln.pen 4 UNITS SUBQ DAILY @ NOON Insulin NPL/Insulin Lispro (HumaLOG 75/25 U100 Insulin Kwikpen) 100 Unit/1 Ml Insuln.pen 34 UNITS SUBQ BIDWM Isosorbide MN ER (Isosorbide MN ER) 60 Mg Tab.er.24h 60 MG PO QAM Metformin (Metformin) 500 Mg Tablet 500 MG PO BID Potassium Chloride (Potassium Chloride) 10 Meq Tab.er.prt 10 MEQ PO QIDWM Spironolactone (Spironolactone) 25 Mg Tablet 25 MG PO QAM Verapamil ER (Verapamil ER) 240 Mg Tber 240 MG PO DAILYWD Warfarin Sodium (Warfarin Sodium) 5 Mg Tablet 2.5 MG PO DAILYWD Scheduled PRN Albuterol HFA (Proair HFA) 8.5 Gm Hfa.aer.ad 1 PUFF INH q4-6 hours PRN PRN For Shortness of Breath Docusate Sodium (Docusate Sodium) 250 Mg Capsule 250 MG PO DAILY PRN PRN For Constipation Metolazone (Metolazone) 2.5 Mg Tablet 2.5 MG PO Q5D PRN PRN EDEMA Nitroglycerin SL (Nitrostat) 0.4 Mg Tab.subl 0.4 MG SL Q5MIN PRN PRN For Chest Pain Polyethylene Glycol 3350 (Miralax) 17 Gm Powd.pack 17 GM PO DAILY PRN PRN For Constipation General Time Seen by MD: 09:34 Chief Complaint Other (Skin Tear) Past Medical History Past Medical History Notes: 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 Past Medical History Prior [place] Hx prostate CA s/p prostatectomy Hx aspiration pneumonia IDDM Reports: Asthma, COPD, Congestive heart failure, Coronary artery disease, Hypertension Past Surgical History Pacemaker Cardiac stenting CABG prostatectomy Smoking History Former Smoker Social History Alcohol Use: 1-3 per week Drug Use: Denies drug use Other Social History: Good social support Ambulatory Status Independent Review of Systems Constitutional: Denies: Chills, Fatigue, Fever Respiratory: Denies: Shortness of breath Cardiovascular: Denies: Chest pain GI: Denies: Abdominal pain Skin: Reports Bruising, Denies Swelling Complete sys rev & neg: except as marked. Neurologic: Denies: Numbness, Weakness Physical Exam Initial Vital Signs Vital Signs (First) Date Time Temp Pulse Resp B/P Pulse Ox O2 Delivery O2 Flow Rate FiO2 11/23/16 09:26 36.2 64 16 110/65 98 Room Air Initial VS: Reviewed Head / Eyes: Atraumatic, Normocephalic Respiratory: Breath sounds normal, Clear to auscultation, No respiratory distress Cardiovascular: Regular rate & rhythm, Heart sounds normal Extremities: Vascular intact, Neuro intact, No swelling, No tenderness Neurologic: Alert, Oriented Psychiatric: Mood/affect normal, Behavior normal Skin: Warm, Dry Patient with a lot of skin bruising on forearms bilaterally. 2 open skin tears (right forearm, left forearm) with dried blood, without any pustular drainage. No swelling or erythema noted. Respiratory / Chest: No respiratory distress Procedures Skin: Wound / Burn Check Skin: Wound/Burn Check: Patient has skin tear to both the left and right forearm. Removed the dressing with dry blood. No discharge or erythema seen, nontender. Cleaned wound sites, applied Gelfoam, tefla, 4x4 gauze and coban. Patient tolerated well and has good cap refill intact. Location: 2 cm skin tear right forearm 2 cm skin tear left forearm Normal Wound / Burn Check: Healing well, No apparent infection, No discharge , No abscess / fluctuance Inspection Abnormal: Discharge bloody Re-Eval/Medical Decision Med Decision/Clinical Course This is a 86-year-old male who comes in for skin tear. The wounds were not actively bleeding when seeing but had residual blood from previous bleed. There were no signs of infection. Applied Gelfoam, Telfa, 4 x 4 gauze and Coban. Patient tolerated well. Discharge & Departure Impression: Primary Impression: Skin tear Disposition: Home Discharge Condition All VS Reviewed: Yes Condition: Stable Patient Instructions: Skin Tear (ED) Additional Instructions: If you have a large amount of bleeding that is not stopping with pressure return to the emergency department. Keep the Gelfoam on and dry for at least 48 hours. Referrals: Hina Cabrera MD (PCP) Attending Statement The patient was seen and examined together with Dr. cornell on 11/23/16 and I have added additional information to the note above. copies to: Hina Cabrera MD, Timothy S DO Nov 23, 2016 09:41 Nico Cornell DO Nov 23, 2016 10:08
== END 2016-11-23 10:25 | disposition home or self-care (01) ==
LOC: SED 09:19
DX: S51.801A Unspecified open wound of right forearm, initial encounter (principal); S51.802A Unspecified open wound of left forearm, initial encounter; W22.8XXA Striking against or struck by other objects, initial encounter; Y93.89 Activity, other specified; Y92.002 Bathroom of unspecified non-institutional (private) residence as the place of occurrence of the external cause; Y99.8 Other external cause status; I11.0 Hypertensive heart disease with heart failure; I50.9 Heart failure, unspecified; I25.10 Atherosclerotic heart disease of native coronary artery without angina pectoris; E11.9 Type 2 diabetes mellitus without complications; I25.2 Old myocardial infarction; J44.9 Chronic obstructive pulmonary disease, unspecified; Z95.5 Presence of coronary angioplasty implant and graft; Z95.1 Presence of aortocoronary bypass graft; Z95.0 Presence of cardiac pacemaker; Z87.891 Personal history of nicotine dependence; Z79.01 Long term (current) use of anticoagulants; Z79.82 Long term (current) use of aspirin; Z79.4 Long term (current) use of insulin; Z79.02 Long term (current) use of antithrombotics/antiplatelets